=== PATIENT | female | born 1935 | race African-American/Black ===

== ENCOUNTER 2019-02-02 19:08 | Inpatient (IN) | payer MEDICARE, OTHER ==
[~2019-02-02] VITALS: Ht 157.5 cm; Wt 104.3 kg
[2019-02-02 23:30] VITALS: BP 127/68
--- NOTE | 2019-02-02 23:45 | NUR ---
NURSE NOTES: Received pt from [facility] via [facility] ambulance. Pt is being admitted for CHF. Pt is awake, AOx4. In no acute distress. VS stable. Placed pt on facility service associate showing SR. Oriented pt to room and unit. Bed in lowest position, call light within reach. Will contact MD for admission orders.
[2019-02-03] MEDS ORDERED: CARVEDILOL25 MG ORAL (00:06)
[2019-02-03] MEDS ORDERED: FUROSEMIDE20 M1 ORAL (00:06)
[2019-02-03] MEDS ORDERED: CHLORTHALIDONE25 MG ORAL (00:06)
[2019-02-03] MEDS ORDERED: LOSARTAN POTASS50 MG ORAL (00:06)
[2019-02-03] MEDS ORDERED: ASPIR 8181 MG ORAL (00:06)
[2019-02-03] MEDS ORDERED: CALCIUM 600 +1 EAC2 PO (00:06)
[2019-02-03] MEDS ORDERED: ADVIL200 M2 ORAL (00:06)
[2019-02-03 04:00] VITALS: BP 130/60
--- NOTE | 2019-02-03 07:21 | NUR ---
HAND-OFF: Report given to ISHAN Robins.
[2019-02-03 07:25] LABS: BASOPHILS % (AUTO) 0.4 % (0.0-2.0); EOSINOPHILS % (AUTO) 0.9 % (0.0-3.0); HEMATOCRIT 29.8 % (37.0-47.0); HEMOGLOBIN 10.2 G/DL (12.0-16.0); LYMPHOCYTES % (AUTO) 8.4 % (20.0-45.0); MEAN CORPUSCULAR VOLUME 85 FL (80-99); MONOCYTES % (AUTO) 9.2 % (1.0-10.0); NEUTROPHILS % (AUTO) 81.1 % (45.0-75.0); PLATELET COUNT 159 K/UL (150-450); RED BLOOD COUNT 3.53 M/UL (4.20-5.40); RED CELL DISTRIBUTION WIDTH 12.5 % (11.6-14.8); WHITE BLOOD COUNT 12.3 K/UL (4.8-10.8)
[2019-02-03 07:52] LABS: ALANINE AMINOTRANSFERASE 7 U/L (12-78); ALBUMIN 2.4 G/DL (3.4-5.0); ALBUMIN/GLOBULIN RATIO 0.6 (1.0-2.7); ALKALINE PHOSPHATASE 45 U/L (46-116); ANION GAP 14 mmol/L (5-15); ASPARTATE AMINO TRANSFERASE 15 U/L (15-37); BILIRUBIN,TOTAL 0.8 MG/DL (0.2-1.0); BLOOD UREA NITROGEN 40 mg/dL (7-18); CALCIUM 8.8 MG/DL (8.5-10.1); CARBON DIOXIDE 23 MMOL/L (21-32); CHLORIDE 107 MMOL/L (98-107); CREATININE 1.5 MG/DL (0.55-1.30); PHOSPHORUS 3.4 MG/DL (2.5-4.9); SODIUM 144 MMOL/L (136-145)
--- NOTE | 2019-02-03 07:52 | NUR ---
NURSE NOTES: Received patient from [facility]. Patient is awake and alert. denies pain or discomfort. O2 @ 2L/min via nasal cannula. Denies pain/Discomfort. safety precautions in place. side railsX2 up for safety. bed locked to lowest position. call arthur within patients reach. will follow.
[2019-02-03 08:00] VITALS: BP 133/65
--- NOTE | 2019-02-03 08:37 | NUR ---
RADIOLOGY DEPT., CHEST X-RAY DONE.-R. JW
[2019-02-03] MEDS: Carvedilol 12.5mg tab ORAL SCH ×2 (09:13→20:38)
[2019-02-03] MEDS: Aspirin EC 81mg tab ORAL SCH (09:13)
[2019-02-03] MEDS: Heparin 5000 units/ml inj SUBQ SCH ×2 (09:35→20:36)
[2019-02-03] MEDS: cefTRIAXone 1 GM in D5W 55 ML IVPB SCH (09:36)
--- NOTE | 2019-02-03 10:58 | Consultation ---
History of Present Illness General Date patient seen: Feb 03, 2019 Present Illness HPI 83 year old, poor historian, with hx of CHF ( pt is on Lasix and Lisinopril), HTN, morbid obesity, was taken by paramedics to [facility] b/o increasing shortness of breath. Her CXR at [place] only showed increased interstitial markings. The physician at [place] thought that she has acute renal insufficiency, lymphedema and cellulitis. She is transferred to [facility] for further evaluation. Allergies: Coded Allergies: No Known Allergies (Unverified , 02/03/19) Medication History Scheduled Aspirin* (Aspir 81*), 81 MG ORAL DAILY, (Reported) Calcium Carbonate/Vitamin D3 (Calcium 600 + Vit D 200 Tablet), 1 EACH PO BID, ( Reported) Carvedilol* (Carvedilol*), 25 MG ORAL BID, (Reported) Chlorthalidone* (Chlorthalidone*), 25 MG ORAL DAILY, (Reported) Furosemide* (Lasix*), 20 MG ORAL BID, (Reported) Losartan Potassium* (Losartan Potassium*), 50 MG ORAL DAILY, (Reported) Scheduled PRN Ibuprofen* (Advil*), 200 MG ORAL Q6H PRN for Pain Scale (6-10), (Reported) Patient History Healthcare decision maker Resuscitation status Full Code Advanced Directive on File Past Medical/Surgical History Past Medical/Surgical History: (1) Cellulitis (2) History of hypertension (3) Cardiomegaly (4) Peripheral edema Review of Systems Respiratory: Reports: shortness of breath Physical Exam General Appearance: WD/WN, morbidly obese Lines, tubes and drains: peripheral HEENT: normocephalic, atraumatic Neck: non-tender, normal alignment Respiratory/Chest: chest wall non-tender, lungs clear Breasts: no masses Cardiovascular/Chest: normal peripheral pulses Abdomen: normal bowel sounds, non tender Genitourinary/Rectal: normal genital exam Extremities: normal range of motion Skin Exam: other - hyperpigmentation in lower extremities Last 24 Hour Vital Signs Date Time Temp Pulse Resp B/P (MAP) Pulse Ox O2 Delivery O2 Flow Rate FiO2 02/03/19 10:08 98.1 02/03/19 09:13 82 133/65 02/03/19 08:00 80 02/03/19 08:00 98.1 82 23 133/65 (87) 96 02/03/19 04:00 98.5 79 18 130/60 (83) 96 02/03/19 04:00 79 02/03/19 00:00 Nasal Cannula 2.0 02/02/19 23:30 99.9 90 20 127/68 (87) 96 02/02/19 23:30 90 Laboratory Tests Test 02/03/19 07:18 White Blood Count 12.3 K/UL (4.8-10.8) H Red Blood Count 3.53 M/UL (4.20-5.40) L Hemoglobin 10.2 G/DL (12.0-16.0) L Hematocrit 29.8 % (37.0-47.0) L Mean Corpuscular Volume 85 FL (80-99) Mean Corpuscular Hemoglobin 28.9 PG (27.0-31.0) Mean Corpuscular Hemoglobin Concent 34.2 G/DL (32.0-36.0) Red Cell Distribution Width 12.5 % (11.6-14.8) Platelet Count 159 K/UL (150-450) Mean Platelet Volume 6.5 FL (6.5-10.1) Neutrophils (%) (Auto) 81.1 % (45.0-75.0) H Lymphocytes (%) (Auto) 8.4 % (20.0-45.0) L Monocytes (%) (Auto) 9.2 % (1.0-10.0) Eosinophils (%) (Auto) 0.9 % (0.0-3.0) Basophils (%) (Auto) 0.4 % (0.0-2.0) Sodium Level 144 MMOL/L (136-145) Potassium Level 3.0 MMOL/L (3.5-5.1) L Chloride Level 107 MMOL/L (98-107) Carbon Dioxide Level 23 MMOL/L (21-32) Anion Gap 14 mmol/L (5-15) Blood Urea Nitrogen 40 mg/dL (7-18) H Creatinine 1.5 MG/DL (0.55-1.30) H Estimat Glomerular Filtration Rate mL/min (>60) Glucose Level 90 MG/DL (74-106) Calcium Level 8.8 MG/DL (8.5-10.1) Phosphorus Level 3.4 MG/DL (2.5-4.9) Magnesium Level 1.9 MG/DL (1.8-2.4) Total Bilirubin 0.8 MG/DL (0.2-1.0) Aspartate Amino Transf (AST/SGOT) 15 U/L (15-37) Alanine Aminotransferase (ALT/SGPT) 7 U/L (12-78) L Alkaline Phosphatase 45 U/L (46-116) L Troponin I 0.000 ng/mL (0.000-0.056) Pro-B-Type Natriuretic Peptide 835 pg/mL (0-125) H Total Protein 6.3 G/DL (6.4-8.2) L Albumin 2.4 G/DL (3.4-5.0) L Globulin 3.9 g/dL Albumin/Globulin Ratio 0.6 (1.0-2.7) L Height (Feet): 5 Height (Inches): 2.00 Weight (Pounds): 220 Medications Current Medications Medications (Trade) Dose Ordered Sig/Christel Route PRN Reason Start Time Stop Time Status Last Admin Dose Admin Acetaminophen (Tylenol) 650 mg Q6H PRN ORAL Mild Pain/Temp > 100.5 02/03/19 06:45 03/05/19 06:44 Aspirin (Ecotrin) 81 mg DAILY ORAL 02/03/19 09:00 03/05/19 08:59 02/03/19 09:13 Carvedilol (Coreg) 12.5 mg EVERY 12 HOURS ORAL 02/03/19 09:00 03/05/19 08:59 02/03/19 09:13 Ceftriaxone Sodium 1 gm/ Dextrose 55 ml @ 110 mls/hr DAILY IVPB 02/03/19 09:00 02/10/19 08:59 02/03/19 09:36 Furosemide (Lasix) 40 mg EVERY 12 HOURS IV 02/03/19 09:00 03/05/19 08:59 02/03/19 09:13 Heparin Sodium (Porcine) (Heparin 5000 units/ml) 5,000 units EVERY 12 HOURS SUBQ 02/03/19 09:00 03/05/19 08:59 02/03/19 09:35 Ibuprofen (Advil) 400 mg Q8H PRN ORAL Moderate Pain (Pain Scale 4-6) 02/03/19 06:45 03/05/19 06:44 02/03/19 09:38 Ondansetron HCl (Zofran) 4 mg Q4H PRN IVP Nausea & Vomiting 02/03/19 06:45 03/05/19 06:44 Potassium Chloride (K-Dur) 40 meq Q8H ORAL 02/03/19 09:00 02/04/19 01:01 02/03/19 09:13 Vancomycin HCl (Vanco rx to dose) 1 ea DAILY PRN MISC Per rx protocol 02/03/19 06:45 03/05/19 06:44 Vancomycin HCl/ Dextrose 275 ml @ 137.5 mls/ hr ONCE IVPB 02/03/19 11:00 02/03/19 13:00 Assessment/Plan Problem List: (1) Acute bronchitis ICD Codes: J20.9 - Acute bronchitis, unspecified SNOMED: 97948415 (2) Cellulitis ICD Codes: L03.90 - Cellulitis, unspecified SNOMED: 040760602 (3) CHF (congestive heart failure) ICD Codes: I50.9 - Heart failure, unspecified SNOMED: 18260771 (4) Cardiomegaly ICD Codes: I51.7 - Cardiomegaly SNOMED: 4079289 (5) Peripheral edema ICD Codes: R60.9 - Edema, unspecified SNOMED: 629353789 (6) History of hypertension ICD Codes: Z86.79 - Personal history of other diseases of the circulatory system SNOMED: 668028024 (7) Morbid obesity ICD Codes: E66.01 - Morbid (severe) obesity due to excess calories SNOMED: 888243265 Assessment/Plan: check echo, doppler of legs diuretics IV monitor BP renal studies anemia w/u dvt prophylaxis respiratory treatment antitussives abx for bronchitis and cellulitis check ESR. Mone Newton MD Feb 03, 2019 10:58
[2019-02-03] MEDS ORDERED: Vancomycin 1.5gm Premix IVPB SCH (11:00)
[2019-02-03] MEDS ORDERED: Promethazine/Codeine 5ml UD ORAL PRN (11:00)
[2019-02-03 11:14] LABS: CREATINE KINASE 54 U/L (26-308)
[2019-02-03 12:00] VITALS: BP 131/63
[2019-02-03 12:26] LABS: APPEARANCE,URINE CLEAR; BILIRUBIN, URINE NEGATIVE (NEGATIVE); COLOR,URINE PALE YELLOW; GLUCOSE, URINE (UA) NEGATIVE (NEGATIVE); KETONES,URINE NEGATIVE (NEGATIVE); LEUKOCYTE ESTERASE ,URINE NEGATIVE (NEGATIVE); NITRITE,URINE NEGATIVE (NEGATIVE); PH,URINE 5 (4.5-8.0); PROTEIN,URINE NEGATIVE (NEGATIVE); UROBILINOGEN,URINE NORMAL MG/DL (0.0-1.0)
[2019-02-03 16:00] VITALS: BP 116/51
--- NOTE | 2019-02-03 16:16 | NUR ---
NURSE NOTES:WOUND CARE NOTES:Morbidly obese pt whom presented on admission with multiple pressure injuries to R and L buttocks. Ful Thickness pressure injury R buttocks with 100% slough at base of wound. Surrounding non-blanching erythema without induration.(L)1.5cm x (W)0.6cm. Full thickness pressure injury L buttocks with 100% slough at base of wound. Surrounding non-blanching erythema without induration.(L)1cm x (W)0.4cm. R lower ext edematous, erythematous with Hyperkeratosis and hardening. R leg is malodorous. Ulcerations noted to distal dorsal and lateral R tibia and dorsal R foot . Small amt of serous exudate noted from ulcers.Gentle scrubbing to remove loosened skin provided. R lower ext remains malodorous post scrubbing. Moisturizing lotion applied to RLE. Xeroform gauze placed over each wound and wrapped with kerlix pending further instructions from Surgeon. L lower ext less edematous in comparison to RLE . Hyperkeratosis with skin hardening noted .No erythema or ulcerations noted.Gentle scrubbing provided to remove loosened skin, then moisturized.Both lower ext elevated with pillows. Non-blanching erythema without fluctuance noted to both heels. Pt denied tenderness when each heel palpated. Recommendations: Wound Care orders as per . Elevate both lower ext with pillows. Reposition at least every 2hours or as tolerated. APM/LIZA Mattress overlay.
--- NOTE | 2019-02-03 16:24 | NUR ---
CASE MANAGEMENT:REVIEW DIRECT ADMIT FROM [facility] SI: CHF 99.9 90 20 127/68 96% ON 2L/NC WBC+12.3 H/H-10.2/29.8 K-3.0 BUN+40 CR+1.5 IS: IV VANCOMYCIN X1 IV ROCEPHIN Q24 HEPARIN SQ Q12 ASA PO QD IV LASIX Q12 COREG PO Q12 K-DUR PO Q8 : TELEMETRY STATUS INTERQUAL CRITERIA MET
--- NOTE | 2019-02-03 16:30 | History & Physical ---
History and Physical History & Physicial Dictated for Int Med-DR Jones no.[id number]. Tony Gaytan MD Feb 03, 2019 16:30
--- NOTE | 2019-02-03 18:00 | History and Physical Report ---
DATE OF ADMISSION: 02/02/2019 CHIEF COMPLAINT: The patient is an 83-year-old female, who presents with a chief complaint of shortness of breath. HISTORY OF PRESENT ILLNESS: Began on Wednesday, January 30, 2019. The patient began to experience shortness of breath. The patient was also wheezing. The patient also had edema of the left lower extremity. The patient states shortness of breath increased on February 02, 2019. The patient eventually called EMS. The patient was transported initially to [facility] emergency room. The patient was found to have elevated BNP. The patient is transferred to [facility] for insurance purposes. The patient presents with chief complaint of shortness of breath and congestive heart failure. REVIEW OF SYSTEMS: CONSTITUTIONAL: The patient denies weight loss or weight gain. The patient denies fevers or chills. HEENT: The patient denies ear or throat pain. The patient denies headache. CARDIOVASCULAR: The patient denies palpitations or chest pain. CHEST: The patient complains of shortness of breath and wheezing as above. The patient denies cough. ABDOMEN: The patient denies nausea, vomiting, diarrhea, or constipation. GENITOURINARY: The patient denies dysuria or increased frequency of urination. NEUROMUSCULAR: The patient denies seizures or generalized weakness. PAST MEDICAL HISTORY: Significant for hypertension. PAST SURGICAL HISTORY: Significant for appendectomy. CURRENT MEDICATIONS: 1. Aspirin 81 mg one tablet p.o. daily. 2. Calcium carbonate one tablet p.o. twice daily. 3. Carvedilol 25 mg p.o. twice daily. 4. Chlorthalidone 25 mg p.o. daily. 5. Lasix 20 mg p.o. twice daily. 6. Ibuprofen 200 mg p.o. q.6 hours p.r.n. 7. Losartan 50 mg p.o. daily. ALLERGIES: No known drug allergies. SOCIAL HISTORY: The patient is single and lives alone. The patient denies tobacco or alcohol use. PHYSICAL EXAMINATION: VITAL SIGNS: Blood pressure 141/67, pulse 95, respirations 29 to 34, and temperature 98.7 degrees Fahrenheit. GENERAL: The patient is a well-developed and well-nourished female, in no apparent distress. HEENT: Eyes, pupils are equal and responsive to light and accommodation. Extraocular movements are intact. NECK: Supple without lymphadenopathy. CHEST: Lungs are clear to auscultation bilaterally without wheezes or rales. CARDIOVASCULAR: Regular rhythm and rate. S1 and S2 are normal without murmurs, rubs, or gallops. ABDOMEN: Soft, nontender, and nondistended. Positive bowel sounds. No evidence of hepatosplenomegaly. Currently, no rebound or guarding noted. EXTREMITIES: Negative for clubbing, cyanosis, or edema. NEUROLOGICAL: Cranial nerves II through XII are grossly intact without focal deficits. Motor strength is 5/5 bilaterally. Deep tendon reflexes are 2+ plantar. IMAGING: A chest x-ray from [place] revealed cardiomegaly with increased interstitial lung markings consistent with congestive heart failure. LABORATORY STUDIES: WBC 15.7, hemoglobin 11.2, hematocrit 34.5, and platelets 201,000. Sodium 143, potassium 3.3, chloride 103, CO2 24, BUN 40, and creatinine 1.75. BNP elevated at 200. Troponin less than 0.02. ASSESSMENT: This is an 83-year-old female. 1. Shortness of breath. 2. Wheezing. 3. Edema of the bilateral lower extremities. 4. Congestive heart failure. 5. Hypertension. TREATMENT: 1. Shortness of breath/wheezing/congestive heart failure. Cardiology consultation has been obtained with Dr. Damian Houser. An echocardiogram is pending. We will follow recommendation of Cardiology. 2. Hypertension. Continue chlorthalidone, losartan, and carvedilol as above. Tony Gaytan M.D. DR: ADALBERTO JOB#: [id number] CC:
--- NOTE | 2019-02-03 18:30 | NUR ---
NURSE NOTES: Received a call from Dr. Hwang of [facility] regarding patients blood culture results 2 out of [address] Jones made aware new order received to consult ID Dr. Joel. Will follow.
--- NOTE | 2019-02-03 19:33 | NUR ---
HAND-OFF: Report given to Anuj/[facility] Patel plan of endorsed. .
--- NOTE | 2019-02-03 19:35 | NUR ---
NURSE NOTES: Received report from ISHAN Robins. Pt is awake and resting in bed. In no acute distress. IV line intact and patent. Pt on lunchroom monitor. Bed in lowest position, call light within reach. Will continue plan of care.
[2019-02-03 20:00] VITALS: BP 124/56
--- NOTE | 2019-02-03 21:13 | NUR ---
NURSE NOTES: Notified Dr. Jones that pt's K level was 3.0 today, per Dr. Jones okay to give Lasix 40 mg IVP dose.
[2019-02-04] VITALS: BP 118/51
[2019-02-04] MEDS: HYDROcodone/Acetamin 5/325 tab ORAL PRN ×4 (03:53→19:53)
[2019-02-04 04:00] VITALS: BP 117/75
[2019-02-04 07:04] LABS: HEMATOCRIT 33.8 % (37.0-47.0); MEAN CORPUSCULAR VOLUME 87 FL (80-99); PLATELET COUNT 186 K/UL (150-450); RED BLOOD COUNT 3.88 M/UL (4.20-5.40); RED CELL DISTRIBUTION WIDTH 12.6 % (11.6-14.8)
[2019-02-04 07:10] LABS: LACTATE DEHYDROGENASE 242 U/L (81-234); PHOSPHORUS 2.4 MG/DL (2.5-4.9)
[2019-02-04 07:17] LABS: % IRON SATURATION 11 % (15-50); IRON 17 ug/dL (50-175); TOTAL IRON BINDING CAPACITY 153 ug/dL (250-450)
--- NOTE | 2019-02-04 07:20 | NUR ---
HAND-OFF: Report given to ISHAN Mondragon.
--- NOTE | 2019-02-04 07:20 | NUR ---
NURSE NOTES: Received report from Anuj OLMSTEAD. Pt is awake and resting in bed. In no acute distress. IV line intact and patent. on 2LPm O2. On gambling monitor. Bed in lowest position, call light within reach. Will continue plan of care.
[2019-02-04 07:27] LABS: ANION GAP 10 mmol/L (5-15); BLOOD UREA NITROGEN 32 mg/dL (7-18); CALCIUM 8.7 MG/DL (8.5-10.1); CARBON DIOXIDE 27 MMOL/L (21-32); CHLORIDE 108 MMOL/L (98-107); CREATININE 1.3 MG/DL (0.55-1.30); POTASSIUM 4.2 MMOL/L (3.5-5.1); SODIUM 145 MMOL/L (136-145)
--- NOTE | 2019-02-04 07:33 | CDS Physician Query ---
Clarification is required for compliance, coding accuracy, and to reflect severity of illness for this patient Dear Mone Crawley MD Date: 02/04/2019 CDS: Aristides Adams According to the clinical indications above, please indicate below the condition Pt has: Cellulitis Labs: WBC: 12.3-->13 Vitals: HR: 90/min; Temp: 99.9 Tx: IV VANCOMYCIN, IV CEFTRIAXONE PHYSICIAN RESPONSE: x Sepsis SIRS SIRS with organ dysfunction Septic Shock Not applicable Other: Present on Admission: x Yes No Clinically Undetermined Physician signature Date Please also document in your Progress Notes and/or Discharge Summary and indicate if the condition was present on admission. MTDD
--- NOTE | 2019-02-04 07:36 | CDS Physician Query ---
Clarification is required for compliance, coding accuracy, and to reflect severity of illness for this patient Dear Mone Crawley MD Date: 02/04/2019 Survey And Mapping Technician/CDS Name: Aristides Adams "Heart Failure / CHF" documented in Progress notes, Pt has SOB Tx: IV FUROSEMIDE Please Clarify: Acuity [] Acute [x] Chronic [x] Acute on Chronic Type [] Systolic [x] Diastolic [] Systolic & Diastolic (Combined) [] Other: Present on Admission: [x] Yes [] No [] Clinically Undetermined Physician signature Date Please also document in your Progress Notes and/or Discharge Summary and indicate if the condition was present on admission. ZACHERYD
[2019-02-04 08:00] VITALS: BP 144/69
[2019-02-04] MEDS: Aspirin EC 81mg tab ORAL SCH (08:45)
[2019-02-04] MEDS: Carvedilol 12.5mg tab ORAL SCH ×2 (08:45→20:54)
[2019-02-04] MEDS: Heparin 5000 units/ml inj SUBQ SCH ×2 (08:46→20:54)
[2019-02-04] MEDS: cefTRIAXone 1 GM in D5W 55 ML IVPB SCH (08:47)
[2019-02-04] MEDS ORDERED: Vancomycin 1.5gm Premix IVPB ONE (09:00)
[2019-02-04] MEDS ORDERED: Albuterol/Ipratropium 3ml neb HHN PRN (11:15)
--- NOTE | 2019-02-04 11:19 | Pulmonology Progress Note ---
Assessment/Plan Problems: (1) Acute on chronic diastolic congestive heart failure (2) Acute bronchitis (3) Cellulitis (4) Cardiomegaly (5) Mild pulmonary hypertension (6) Peripheral edema (7) Morbid obesity (8) History of hypertension Assessment/Plan wbc still high dyspnea at times, add duoneb continue abx echo reviewed, EF of 55%, mild diastolic dysfunction with pulmonary hypertension decrease lasix. BNP noted dvt prophylaxis pt will need NH placement. Subjective ROS Limited/Unobtainable: No Constitutional: Reports: no symptoms HEENT: Repors: no symptoms Respiratory: Reports: no symptoms Allergies: Coded Allergies: No Known Allergies (Unverified , 02/03/19) Objective Last 24 Hour Vital Signs Date Time Temp Pulse Resp B/P (MAP) Pulse Ox O2 Delivery O2 Flow Rate FiO2 02/04/19 09:00 Nasal Cannula 2.0 02/04/19 08:45 73 144/69 02/04/19 08:00 97.7 73 18 144/69 (94) 96 02/04/19 04:00 69 02/04/19 04:00 97.7 69 19 117/75 (89) 99 02/04/19 00:00 97.0 68 20 118/51 (73) 96 02/03/19 21:00 Nasal Cannula 2.0 02/03/19 20:38 75 124/56 02/03/19 20:00 71 02/03/19 20:00 98.2 71 20 124/56 (78) 98 02/03/19 16:00 99.5 69 20 116/51 (72) 98 02/03/19 16:00 65 02/03/19 12:00 97.9 58 25 131/63 (85) 96 02/03/19 12:00 70 Intake and Output 02/03/19 02/04/19 18:59 06:59 Intake Total 120 ml 200 ml Output Total 800 ml 1500 ml Balance -680 ml -1300 ml Intake Oral 120 ml 200 ml Output Urine Total 800 ml 1500 ml # Bowel Movements 1 1 Objective General Appearance: WD/WN, morbidly obese Lines, tubes and drains: peripheral HEENT: normocephalic, atraumatic Neck: non-tender, normal alignment Respiratory/Chest: chest wall non-tender, lungs clear Breasts: no masses Cardiovascular/Chest: normal peripheral pulses Abdomen: normal bowel sounds, non tender Genitourinary/Rectal: normal genital exam Extremities: normal range of motion, severe edema Skin Exam: other - hyperpigmentation in lower extremities Microbiology Date/Time Source Procedure Growth Status 02/03/19 14:25 Stool Clostridium difficile Toxin Assay - Final Complete Laboratory Tests 02/03/19 11:43: Urine Color Pale yellow, Urine Appearance Clear, Urine pH 5, Urine Specific [place] 1.005, Urine Protein Negative, Urine Glucose (UA) Negative, Urine Ketones Negative, Urine Blood Negative, Urine Nitrite Negative, Urine Bilirubin Negative, Urine Urobilinogen Normal, Urine Leukocyte Esterase Negative, Urine RBC 0, Urine WBC 0, Urine Squamous Epithelial Cells Occasional, Urine Bacteria Occasional, Urine Eosinophils None seen, Urine Random Sodium 105, Urine Potassium Timed 10L 02/03/19 14:25: Stool Occult Blood Negative 02/04/19 05:19: White Blood Count 13.0H, Red Blood Count 3.88L, Hemoglobin 11.0L, Hematocrit 33.8L, Mean Corpuscular Volume 87, Mean Corpuscular Hemoglobin 28.4, Mean Corpuscular Hemoglobin Concent 32.7, Red Cell Distribution Width 12.6, Platelet Count 186, Mean Platelet Volume 6.8, Neutrophils (%) (Auto) , Lymphocytes (%) ( Auto) , Monocytes (%) (Auto) , Eosinophils (%) (Auto) , Basophils (%) (Auto) , Differential Total Cells Counted 100, Neutrophils % (Manual) 77H, Lymphocytes % (Manual) 12L, Monocytes % (Manual) 7, Eosinophils % (Manual) 4H, Basophils % ( Manual) 0, Band Neutrophils 0, Platelet Estimate Adequate, Platelet Morphology Normal, Red Blood Cell Morphology Normal, Erythrocyte Sedimentation Rate 74H, Reticulocyte Count 0.3L, Prothrombin Time 10.6, Prothromb Time International Ratio 1.0, Activated Partial Thromboplast Time 35H, Sodium Level 145, Potassium Level 4.2, Chloride Level 108H, Carbon Dioxide Level 27, Anion Gap 10, Blood Urea Nitrogen 32H, Creatinine 1.3, Estimat Glomerular Filtration Rate , Glucose Level 111H, Calcium Level 8.7, Phosphorus Level 2.4L, Magnesium Level 1.7L, Iron Level 17L, Total Iron Binding Capacity 153L, Percent Iron Saturation 11L, Unsaturated Iron Binding 136, Lactate Dehydrogenase 242H, Troponin I 0.000, C- Reactive Protein, Quantitative 35.4H, Pro-B-Type Natriuretic Peptide 2535H, Carcinoembryonic Antigen [Pending], Vitamin B12 Level 728, Folate 4.0L, Random Vancomycin Level 14.4 Current Medications Medications (Trade) Dose Ordered Sig/Christel Route PRN Reason Start Time Stop Time Status Last Admin Dose Admin Acetaminophen (Tylenol) 650 mg Q6H PRN ORAL Mild Pain/Temp > 100.5 02/03/19 06:45 03/05/19 06:44 02/04/19 03:01 Acetaminophen/ Hydrocodone Bitart ([place] 5/325) 1 tab EVERY 4 HOURS PRN ORAL Moderate Pain (Pain Scale 4-6) 02/04/19 11:15 02/11/19 03:29 UNV Albuterol/ Ipratropium (Albuterol/ Ipratropium) 3 ml Q4H PRN HHN Shortness of Breath 02/04/19 11:15 02/09/19 11:14 UNV Aspirin (Ecotrin) 81 mg DAILY ORAL 02/03/19 09:00 03/05/19 08:59 02/04/19 08:45 Carvedilol (Coreg) 12.5 mg EVERY 12 HOURS ORAL 02/03/19 09:00 03/05/19 08:59 02/04/19 08:45 Ceftriaxone Sodium 1 gm/ Dextrose 55 ml @ 110 mls/hr DAILY IVPB 02/03/19 09:00 02/10/19 08:59 02/04/19 08:47 Furosemide (Lasix) 40 mg EVERY 12 HOURS IV 02/03/19 09:00 03/05/19 08:59 02/04/19 08:46 Heparin Sodium (Porcine) (Heparin 5000 units/ml) 5,000 units EVERY 12 HOURS SUBQ 02/03/19 09:00 03/05/19 08:59 02/04/19 08:46 Ondansetron HCl (Zofran) 4 mg Q4H PRN IVP Nausea & Vomiting 02/03/19 06:45 03/05/19 06:44 Promethazine HCl/ Codeine (Phenergan with Codeine) 5 ml Q4H PRN ORAL For Cough 02/03/19 11:00 03/05/19 10:59 Vancomycin HCl (Vanco rx to dose) 1 ea DAILY PRN MISC Per rx protocol 02/03/19 06:45 03/05/19 06:44 Vancomycin HCl/ Dextrose 275 ml @ 137.5 mls/ hr Q24H IVPB 02/05/19 09:00 02/10/19 08:59 Mone Newton MD Feb 04, 2019 11:19
--- NOTE | 2019-02-04 11:36 | Consultation ---
History of Present Illness General Date patient seen: Feb 04, 2019 Present Illness HPI 83 y/o F with hx of CHF, HTN, s/p appendectomy, morbid obesity is transferred from [facility] to [place] on 02/03 for 3 days of increasing SOB and wheezing. CXR at [place] showed increased interstitial markings. Patient also had L LE edema Denied f/c, n/v/d, urinary symptoms. Allergies: Coded Allergies: No Known Allergies (Unverified , 02/03/19) Medication History Scheduled Aspirin* (Aspir 81*), 81 MG ORAL DAILY, (Reported) Calcium Carbonate/Vitamin D3 (Calcium 600 + Vit D 200 Tablet), 1 EACH PO BID, ( Reported) Carvedilol* (Carvedilol*), 25 MG ORAL BID, (Reported) Chlorthalidone* (Chlorthalidone*), 25 MG ORAL DAILY, (Reported) Furosemide* (Lasix*), 20 MG ORAL BID, (Reported) Losartan Potassium* (Losartan Potassium*), 50 MG ORAL DAILY, (Reported) Scheduled PRN Ibuprofen* (Advil*), 200 MG ORAL Q6H PRN for Pain Scale (6-10), (Reported) Patient History Healthcare decision maker Resuscitation status Full Code Advanced Directive on File Patient History Narrative Pmhx: as above Shx: The patient is single and lives alone. The patient denies tobacco or alcohol use. Fhx: non contributory Review of Systems All Other Systems: negative except mentioned in HPI Physical Exam Physical Exam Narrative General Appearance: WD/WN, morbidly obese Lines, tubes and drains: peripheral HEENT: normocephalic, atraumatic Neck: non-tender, normal alignment Respiratory/Chest: chest wall non-tender, lungs clear Cardiovascular/Chest: normal peripheral pulses Abdomen: normal bowel sounds, non tender Extremities: normal range of motion Skin Exam: other - hyperpigmentation in lower extremities Last 24 Hour Vital Signs Date Time Temp Pulse Resp B/P (MAP) Pulse Ox O2 Delivery O2 Flow Rate FiO2 02/04/19 09:00 Nasal Cannula 2.0 02/04/19 08:45 73 144/69 02/04/19 08:00 97.7 73 18 144/69 (94) 96 02/04/19 04:00 69 02/04/19 04:00 97.7 69 19 117/75 (89) 99 02/04/19 00:00 97.0 68 20 118/51 (73) 96 02/03/19 21:00 Nasal Cannula 2.0 02/03/19 20:38 75 124/56 02/03/19 20:00 71 02/03/19 20:00 98.2 71 20 124/56 (78) 98 02/03/19 16:00 99.5 69 20 116/51 (72) 98 02/03/19 16:00 65 02/03/19 12:00 97.9 58 25 131/63 (85) 96 02/03/19 12:00 70 Intake and Output 02/03/19 02/04/19 18:59 06:59 Intake Total 120 ml 200 ml Output Total 800 ml 1500 ml Balance -680 ml -1300 ml Intake Oral 120 ml 200 ml Output Urine Total 800 ml 1500 ml # Bowel Movements 1 1 Laboratory Tests Test 02/03/19 11:43 02/03/19 14:25 02/04/19 05:19 Urine Color Pale yellow Urine Appearance Clear Urine pH 5 (4.5-8.0) Urine Specific [place] 1.005 (1.005-1.035) Urine Protein Negative (NEGATIVE) Urine Glucose (UA) Negative (NEGATIVE) Urine Ketones Negative (NEGATIVE) Urine Blood Negative (NEGATIVE) Urine Nitrite Negative (NEGATIVE) Urine Bilirubin Negative (NEGATIVE) Urine Urobilinogen Normal MG/DL (0.0-1.0) Urine Leukocyte Esterase Negative (NEGATIVE) Urine RBC 0 /HPF (0 - 2) Urine WBC 0 /HPF (0 - 2) Urine Squamous Epithelial Cells Occasional /LPF Urine Bacteria Occasional /HPF (NONE) Urine Eosinophils None seen (NONE SEEN) Urine Random Sodium 105 mmol/L (20-110) Urine Potassium Timed 10 mmol/L (12-62) L Stool Occult Blood Negative (NEGATIVE) White Blood Count 13.0 K/UL (4.8-10.8) H Red Blood Count 3.88 M/UL (4.20-5.40) L Hemoglobin 11.0 G/DL (12.0-16.0) L Hematocrit 33.8 % (37.0-47.0) L Mean Corpuscular Volume 87 FL (80-99) Mean Corpuscular Hemoglobin 28.4 PG (27.0-31.0) Mean Corpuscular Hemoglobin Concent 32.7 G/DL (32.0-36.0) Red Cell Distribution Width 12.6 % (11.6-14.8) Platelet Count 186 K/UL (150-450) Mean Platelet Volume 6.8 FL (6.5-10.1) Neutrophils (%) (Auto) % (45.0-75.0) Lymphocytes (%) (Auto) % (20.0-45.0) Monocytes (%) (Auto) % (1.0-10.0) Eosinophils (%) (Auto) % (0.0-3.0) Basophils (%) (Auto) % (0.0-2.0) Differential Total Cells Counted 100 Neutrophils % (Manual) 77 % (45-75) H Lymphocytes % (Manual) 12 % (20-45) L Monocytes % (Manual) 7 % (1-10) Eosinophils % (Manual) 4 % (0-3) H Basophils % (Manual) 0 % (0-2) Band Neutrophils 0 % (0-8) Platelet Estimate Adequate Platelet Morphology Normal Red Blood Cell Morphology Normal Erythrocyte Sedimentation Rate 74 MM/HR (0-30) H Reticulocyte Count 0.3 % (0.5-2.0) L Prothrombin Time 10.6 SEC (9.30-11.50) Prothromb Time International Ratio 1.0 (0.9-1.1) Activated Partial Thromboplast Time 35 SEC (23-33) H Sodium Level 145 MMOL/L (136-145) Potassium Level 4.2 MMOL/L (3.5-5.1) Chloride Level 108 MMOL/L (98-107) H Carbon Dioxide Level 27 MMOL/L (21-32) Anion Gap 10 mmol/L (5-15) Blood Urea Nitrogen 32 mg/dL (7-18) H Creatinine 1.3 MG/DL (0.55-1.30) Estimat Glomerular Filtration Rate mL/min (>60) Glucose Level 111 MG/DL (74-106) H Calcium Level 8.7 MG/DL (8.5-10.1) Phosphorus Level 2.4 MG/DL (2.5-4.9) L Magnesium Level 1.7 MG/DL (1.8-2.4) L Iron Level 17 ug/dL (50-175) L Total Iron Binding Capacity 153 ug/dL (250-450) L Percent Iron Saturation 11 % (15-50) L Unsaturated Iron Binding 136 ug/dL (112-346) Lactate Dehydrogenase 242 U/L (81-234) H Troponin I 0.000 ng/mL (0.000-0.056) C-Reactive Protein, Quantitative 35.4 mg/dL (0.00-0.90) H Pro-B-Type Natriuretic Peptide 2535 pg/mL (0-125) H Carcinoembryonic Antigen Pending Vitamin B12 Level 728 PG/ML (193-986) Folate 4.0 NG/ML (8.6-58.9) L Random Vancomycin Level 14.4 ug/mL Microbiology Date/Time Source Procedure Growth Status 02/03/19 14:25 Stool Clostridium difficile Toxin Assay - Final Complete Height (Feet): 5 Height (Inches): 2.00 Weight (Pounds): 210 Medications Current Medications Medications (Trade) Dose Ordered Sig/Christel Route PRN Reason Start Time Stop Time Status Last Admin Dose Admin Acetaminophen (Tylenol) 650 mg Q6H PRN ORAL Mild Pain/Temp > 100.5 02/03/19 06:45 03/05/19 06:44 02/04/19 03:01 Acetaminophen/ Hydrocodone Bitart ([place] 5/325) 1 tab Q4H PRN ORAL Moderate Pain (Pain Scale 4-6) 02/04/19 11:15 02/11/19 11:14 Albuterol/ Ipratropium (Albuterol/ Ipratropium) 3 ml Q4H PRN HHN Shortness of Breath 02/04/19 11:15 02/09/19 11:14 Aspirin (Ecotrin) 81 mg DAILY ORAL 02/03/19 09:00 03/05/19 08:59 02/04/19 08:45 Carvedilol (Coreg) 12.5 mg EVERY 12 HOURS ORAL 02/03/19 09:00 03/05/19 08:59 02/04/19 08:45 Ceftriaxone Sodium 1 gm/ Dextrose 55 ml @ 110 mls/hr DAILY IVPB 02/03/19 09:00 02/10/19 08:59 02/04/19 08:47 Furosemide (Lasix) 20 mg EVERY 12 HOURS IV 02/04/19 21:00 03/05/19 08:59 Heparin Sodium (Porcine) (Heparin 5000 units/ml) 5,000 units EVERY 12 HOURS SUBQ 02/03/19 09:00 03/05/19 08:59 02/04/19 08:46 Ondansetron HCl (Zofran) 4 mg Q4H PRN IVP Nausea & Vomiting 02/03/19 06:45 03/05/19 06:44 Promethazine HCl/ Codeine (Phenergan with Codeine) 5 ml Q4H PRN ORAL For Cough 02/03/19 11:00 03/05/19 10:59 Vancomycin HCl (Vanco rx to dose) 1 ea DAILY PRN MISC Per rx protocol 02/03/19 06:45 03/05/19 06:44 Vancomycin HCl/ Dextrose 275 ml @ 137.5 mls/ hr Q24H IVPB 02/05/19 09:00 02/10/19 08:59 Assessment/Plan Assessment/Plan: Abx: IV Vancomycin 02/03- Ceftriaxone 02/03- Assessment: SOB/wheezing- likely CHF exacerbation- r/o PNA -CXR: p -CXR (at [place]): increased interstitial markings L LE edema- 2ry to Cellulitis -V. duplex no DVT GBS bacteremia (at [place])- suspect from cellulitis -02/02 Bcx 07/05 GBS Afebrile Leukocytosis ALEXANDRA, improving CHF HTN s/p appendectomy morbid obesity Plan: -Continue empiric IV Vancomycin and Ceftriaxone #2 -f/u cx -Monitor CBC/CMP, temperatures -f/u CXR -Bcx x2, sp cx -wound care per hospital protocol Thank you for this consultation. Will continue to follow along with you. Discussed with Izabella Whalen M.D. Feb 04, 2019 11:36
[2019-02-04 11:45] VITALS: BP 111/58
--- NOTE | 2019-02-04 13:16 | Cardiology Report ---
APPROVED REPORT EXAM: Two-dimensional and M-mode echocardiogram with Doppler and color Doppler. INDICATION Congestive Heart Failure M-Mode DIMENSIONS IVSd0.8 (0.7-1.1cm)Left Atrium (MM)3.9 (1.6-4.0cm) LVDd5.2 (3.5-5.6cm)Aortic Root2.6 (2.0-3.7cm) PWd0.9 (0.7-1.1cm)Aortic Cusp Exc.1.6 (1.5-2.0cm) IVSs1.5 cm LVDs3.3 (2.5-4.0cm) PWs1.7 cm Normal left ventricular chamber size, systolic function and wall motion . Left ventricular ejection fraction estimated to be 55 %. No left ventricular hypertrophy. Anterior Echo-free space, may be due to pericardial fat or effusion. All other cardiac chamber sizes are within normal limits. Thickened mitral valve leaflets with normal excursion. Focal aortic valve sclerosis with adequate cusp excursion. Mitral annulus and aortic root calcification. Normal pulmonic valve structure. Normal tricuspid valve structure. IVC at normal size with physiologic collapse. A color flow and spectral Doppler study was performed and revealed: Trace aortic insufficiency. Trace mitral regurgitation. Mitral diastolic velocities suggest reduced left ventricular relaxation c/w mild LV diastolic dysfunction (Grade I ) Mild tricuspid regurgitation. Tricuspid systolic velocities suggests peak right ventricular systolic pressure of 38 mmHg,consistent with mild pulmonary hypertension.
--- NOTE | 2019-02-04 13:40 | NUR ---
PT EVALUATION NOTE Patient seen for initial evaluation, see complete evaluation for details. Patient presents with generalized weakness and pain which affects patient's ability to perform mobility tasks. Patient requires max assist for rolling; declined sitting at EOB and OOB activities due to low back pain. Patient will benefit from skilled inpatient PT intervention to address strength, balance, safety and functional mobility. Recommend discharge to SNF for short term rehab once medically cleared by MD as patient lives alone. Patient has 4 wheeled walker at home. Addendum: 02/04/19 at 1429 by MACARENA ESPAÑA PT Amended: Links added.
--- NOTE | 2019-02-04 14:38 | Cardiac Electrophysiology PN ---
Subjective Subjective [id number] Objective Last 24 Hour Vital Signs Date Time Temp Pulse Resp B/P (MAP) Pulse Ox O2 Delivery O2 Flow Rate FiO2 02/04/19 12:20 72 02/04/19 11:45 98.4 74 18 111/58 (75) 96 02/04/19 09:00 Nasal Cannula 2.0 02/04/19 08:45 73 144/69 02/04/19 08:00 97.7 73 18 144/69 (94) 96 02/04/19 04:00 69 02/04/19 04:00 97.7 69 19 117/75 (89) 99 02/04/19 00:00 97.0 68 20 118/51 (73) 96 02/03/19 21:00 Nasal Cannula 2.0 02/03/19 20:38 75 124/56 02/03/19 20:00 71 02/03/19 20:00 98.2 71 20 124/56 (78) 98 02/03/19 16:00 99.5 69 20 116/51 (72) 98 02/03/19 16:00 65 Intake and Output 02/03/19 02/04/19 18:59 06:59 Intake Total 120 ml 200 ml Output Total 800 ml 1500 ml Balance -680 ml -1300 ml Intake Oral 120 ml 200 ml Output Urine Total 800 ml 1500 ml # Bowel Movements 1 1 Laboratory Tests Test 02/04/19 05:19 White Blood Count 13.0 K/UL (4.8-10.8) H Red Blood Count 3.88 M/UL (4.20-5.40) L Hemoglobin 11.0 G/DL (12.0-16.0) L Hematocrit 33.8 % (37.0-47.0) L Mean Corpuscular Volume 87 FL (80-99) Mean Corpuscular Hemoglobin 28.4 PG (27.0-31.0) Mean Corpuscular Hemoglobin Concent 32.7 G/DL (32.0-36.0) Red Cell Distribution Width 12.6 % (11.6-14.8) Platelet Count 186 K/UL (150-450) Mean Platelet Volume 6.8 FL (6.5-10.1) Neutrophils (%) (Auto) % (45.0-75.0) Lymphocytes (%) (Auto) % (20.0-45.0) Monocytes (%) (Auto) % (1.0-10.0) Eosinophils (%) (Auto) % (0.0-3.0) Basophils (%) (Auto) % (0.0-2.0) Differential Total Cells Counted 100 Neutrophils % (Manual) 77 % (45-75) H Lymphocytes % (Manual) 12 % (20-45) L Monocytes % (Manual) 7 % (1-10) Eosinophils % (Manual) 4 % (0-3) H Basophils % (Manual) 0 % (0-2) Band Neutrophils 0 % (0-8) Other Cell Type Pathologist review Platelet Estimate Adequate Platelet Morphology Normal Red Blood Cell Morphology Normal Erythrocyte Sedimentation Rate 74 MM/HR (0-30) H Reticulocyte Count 0.3 % (0.5-2.0) L Prothrombin Time 10.6 SEC (9.30-11.50) Prothromb Time International Ratio 1.0 (0.9-1.1) Activated Partial Thromboplast Time 35 SEC (23-33) H Sodium Level 145 MMOL/L (136-145) Potassium Level 4.2 MMOL/L (3.5-5.1) Chloride Level 108 MMOL/L (98-107) H Carbon Dioxide Level 27 MMOL/L (21-32) Anion Gap 10 mmol/L (5-15) Blood Urea Nitrogen 32 mg/dL (7-18) H Creatinine 1.3 MG/DL (0.55-1.30) Estimat Glomerular Filtration Rate mL/min (>60) Glucose Level 111 MG/DL (74-106) H Calcium Level 8.7 MG/DL (8.5-10.1) Phosphorus Level 2.4 MG/DL (2.5-4.9) L Magnesium Level 1.7 MG/DL (1.8-2.4) L Iron Level 17 ug/dL (50-175) L Total Iron Binding Capacity 153 ug/dL (250-450) L Percent Iron Saturation 11 % (15-50) L Unsaturated Iron Binding 136 ug/dL (112-346) Lactate Dehydrogenase 242 U/L (81-234) H Troponin I 0.000 ng/mL (0.000-0.056) C-Reactive Protein, Quantitative 35.4 mg/dL (0.00-0.90) H Pro-B-Type Natriuretic Peptide 2535 pg/mL (0-125) H Carcinoembryonic Antigen Pending Vitamin B12 Level 728 PG/ML (193-986) Folate 4.0 NG/ML (8.6-58.9) L Random Vancomycin Level 14.4 ug/mL Microbiology Date/Time Source Procedure Growth Status 02/03/19 14:25 Stool Clostridium difficile Toxin Assay - Final Complete Bob Lowry MD Feb 04, 2019 14:38
--- NOTE | 2019-02-04 15:19 | Internal Med Progress Note ---
Subjective Physician Name Mark Jones Attending Physician Mark Jones MD Current Medications Medications (Trade) Dose Ordered Sig/Christel Route PRN Reason Start Time Stop Time Status Last Admin Dose Admin Acetaminophen (Tylenol) 650 mg Q6H PRN ORAL Mild Pain/Temp > 100.5 02/03/19 06:45 03/05/19 06:44 02/04/19 03:01 Acetaminophen/ Hydrocodone Bitart ([place] 5/325) 1 tab Q4H PRN ORAL Moderate Pain (Pain Scale 4-6) 02/04/19 11:15 02/11/19 11:14 Albuterol/ Ipratropium (Albuterol/ Ipratropium) 3 ml Q4H PRN HHN Shortness of Breath 02/04/19 11:15 02/09/19 11:14 Aspirin (Ecotrin) 81 mg DAILY ORAL 02/03/19 09:00 03/05/19 08:59 02/04/19 08:45 Carvedilol (Coreg) 12.5 mg EVERY 12 HOURS ORAL 02/03/19 09:00 03/05/19 08:59 02/04/19 08:45 Ceftriaxone Sodium 1 gm/ Dextrose 55 ml @ 110 mls/hr DAILY IVPB 02/03/19 09:00 02/10/19 08:59 02/04/19 08:47 Furosemide (Lasix) 40 mg EVERY 12 HOURS IV 02/04/19 21:00 03/05/19 08:59 Heparin Sodium (Porcine) (Heparin 5000 units/ml) 5,000 units EVERY 12 HOURS SUBQ 02/03/19 09:00 03/05/19 08:59 02/04/19 08:46 Ondansetron HCl (Zofran) 4 mg Q4H PRN IVP Nausea & Vomiting 02/03/19 06:45 03/05/19 06:44 Promethazine HCl/ Codeine (Phenergan with Codeine) 5 ml Q4H PRN ORAL For Cough 02/03/19 11:00 03/05/19 10:59 Vancomycin HCl (Vanco rx to dose) 1 ea DAILY PRN MISC Per rx protocol 02/03/19 06:45 03/05/19 06:44 Vancomycin HCl/ Dextrose 275 ml @ 137.5 mls/ hr Q24H IVPB 02/05/19 09:00 02/10/19 08:59 Allergies: Coded Allergies: No Known Allergies (Unverified , 02/03/19) Subjective awake, alert, responsive, NAD, No CP or SOB. Objective Last Vital Signs Date Time Temp Pulse Resp B/P (MAP) Pulse Ox O2 Delivery O2 Flow Rate FiO2 02/04/19 12:20 72 02/04/19 11:45 98.4 18 111/58 (75) 96 02/04/19 09:00 Nasal Cannula 2.0 Laboratory Tests Test 02/04/19 05:19 White Blood Count 13.0 K/UL (4.8-10.8) H Red Blood Count 3.88 M/UL (4.20-5.40) L Hemoglobin 11.0 G/DL (12.0-16.0) L Hematocrit 33.8 % (37.0-47.0) L Mean Corpuscular Volume 87 FL (80-99) Mean Corpuscular Hemoglobin 28.4 PG (27.0-31.0) Mean Corpuscular Hemoglobin Concent 32.7 G/DL (32.0-36.0) Red Cell Distribution Width 12.6 % (11.6-14.8) Platelet Count 186 K/UL (150-450) Mean Platelet Volume 6.8 FL (6.5-10.1) Neutrophils (%) (Auto) % (45.0-75.0) Lymphocytes (%) (Auto) % (20.0-45.0) Monocytes (%) (Auto) % (1.0-10.0) Eosinophils (%) (Auto) % (0.0-3.0) Basophils (%) (Auto) % (0.0-2.0) Differential Total Cells Counted 100 Neutrophils % (Manual) 77 % (45-75) H Lymphocytes % (Manual) 12 % (20-45) L Monocytes % (Manual) 7 % (1-10) Eosinophils % (Manual) 4 % (0-3) H Basophils % (Manual) 0 % (0-2) Band Neutrophils 0 % (0-8) Other Cell Type Pathologist review Platelet Estimate Adequate Platelet Morphology Normal Red Blood Cell Morphology Normal Erythrocyte Sedimentation Rate 74 MM/HR (0-30) H Reticulocyte Count 0.3 % (0.5-2.0) L Prothrombin Time 10.6 SEC (9.30-11.50) Prothromb Time International Ratio 1.0 (0.9-1.1) Activated Partial Thromboplast Time 35 SEC (23-33) H Sodium Level 145 MMOL/L (136-145) Potassium Level 4.2 MMOL/L (3.5-5.1) Chloride Level 108 MMOL/L (98-107) H Carbon Dioxide Level 27 MMOL/L (21-32) Anion Gap 10 mmol/L (5-15) Blood Urea Nitrogen 32 mg/dL (7-18) H Creatinine 1.3 MG/DL (0.55-1.30) Estimat Glomerular Filtration Rate mL/min (>60) Glucose Level 111 MG/DL (74-106) H Calcium Level 8.7 MG/DL (8.5-10.1) Phosphorus Level 2.4 MG/DL (2.5-4.9) L Magnesium Level 1.7 MG/DL (1.8-2.4) L Iron Level 17 ug/dL (50-175) L Total Iron Binding Capacity 153 ug/dL (250-450) L Percent Iron Saturation 11 % (15-50) L Unsaturated Iron Binding 136 ug/dL (112-346) Lactate Dehydrogenase 242 U/L (81-234) H Troponin I 0.000 ng/mL (0.000-0.056) C-Reactive Protein, Quantitative 35.4 mg/dL (0.00-0.90) H Pro-B-Type Natriuretic Peptide 2535 pg/mL (0-125) H Carcinoembryonic Antigen Pending Vitamin B12 Level 728 PG/ML (193-986) Folate 4.0 NG/ML (8.6-58.9) L Random Vancomycin Level 14.4 ug/mL Microbiology Date/Time Source Procedure Growth Status 02/03/19 14:25 Stool Clostridium difficile Toxin Assay - Final Complete Intake and Output 02/03/19 02/04/19 18:59 06:59 Intake Total 120 ml 200 ml Output Total 800 ml 1500 ml Balance -680 ml -1300 ml Intake Oral 120 ml 200 ml Output Urine Total 800 ml 1500 ml # Bowel Movements 1 1 Objective General: No acute distress, awake and alert HEENT: NCAT, sclera anicteric, PERRL, EOMI. Neck: Supple, no significant jugular venous distention, Lungs: Fair inspiratory effort, decrease air at bases, no Wheeze or Rales. Heart: Regular rate and rhythm, normal S1/S2, no murmur. Abdomen: soft, nontender, nondistended. Normoactive bowel sounds, morbid obesity. / Rectal: Refused and deferred. Extremities: No Cyanosis , clubbing, Bilateral LE's edema resolved. Left Leg dressing. Neuro: A&O x 3, Able to move all extremities Skin: warm, no rash. Psych: Normal mood and affect Assessment/Plan Assessment/Plan (1) Acute on chronic diastolic congestive heart failure (2) Acute bronchitis (3) Cellulitis (4) Cardiomegaly (5) Mild pulmonary hypertension (6) Peripheral edema (7) Morbid obesity (8) History of hypertension Plan: Monitor cultures and labs Abx: Vanco IV, Rocephin IV Discuss about Dc planning, SNF placement PT Mobility Full code Heparin SQ Mark Jones MD Feb 04, 2019 15:19
[2019-02-04 16:00] VITALS: BP 109/70
--- NOTE | 2019-02-04 17:45 | Consultation ---
History of Present Illness General Date patient seen: Feb 03, 2019 Time patient seen: 12:00 Referring physician: Aman Reason for Consultation: Buttock ulcer Present Illness HPI Asked to evaluate this patient for right medial buttock ulcer. She was admitted to [facility] for SOB and was found to have this ulcer on admission. She lives at home and per history is ambulatory. She has a h/o chronic venous insufficiency and LLE ulcers that has been managed by her oil operator in the past. She is apparently not aware of having a buttock ulcer. Allergies: Coded Allergies: No Known Allergies (Unverified , 02/03/19) Medication History Scheduled Aspirin* (Aspir 81*), 81 MG ORAL DAILY, (Reported) Calcium Carbonate/Vitamin D3 (Calcium 600 + Vit D 200 Tablet), 1 EACH PO BID, ( Reported) Carvedilol* (Carvedilol*), 25 MG ORAL BID, (Reported) Chlorthalidone* (Chlorthalidone*), 25 MG ORAL DAILY, (Reported) Furosemide* (Lasix*), 20 MG ORAL BID, (Reported) Losartan Potassium* (Losartan Potassium*), 50 MG ORAL DAILY, (Reported) Scheduled PRN Ibuprofen* (Advil*), 200 MG ORAL Q6H PRN for Pain Scale (6-10), (Reported) Patient History History Provided By: Patient, Medical Record Healthcare decision maker Resuscitation status Full Code Advanced Directive on File Past Medical/Surgical History Past Medical/Surgical History: (1) Morbid obesity (2) History of hypertension (3) Acute on chronic diastolic congestive heart failure (4) Mild pulmonary hypertension Review of Systems Respiratory: Reports: see HPI Musculoskeletal: Reports: back pain Skin: Reports: see HPI Physical Exam General Appearance: WD/WN, no apparent distress, alert, morbidly obese Lines, tubes and drains: peripheral Extremities: moderate edema Skin Exam: other - Ulcer of right medial buttock is unstageable. Skin around sacral area is stage 1. No erythema or warmth. No fluctuance. Last 24 Hour Vital Signs Date Time Temp Pulse Resp B/P (MAP) Pulse Ox O2 Delivery O2 Flow Rate FiO2 02/04/19 16:00 79 02/04/19 16:00 97.9 85 20 109/70 (83) 94 02/04/19 12:20 72 02/04/19 11:45 98.4 74 18 111/58 (75) 96 02/04/19 09:00 Nasal Cannula 2.0 02/04/19 08:45 73 144/69 02/04/19 08:00 97.7 73 18 144/69 (94) 96 02/04/19 04:00 69 02/04/19 04:00 97.7 69 19 117/75 (89) 99 02/04/19 00:00 97.0 68 20 118/51 (73) 96 02/03/19 21:00 Nasal Cannula 2.0 02/03/19 20:38 75 124/56 02/03/19 20:00 71 02/03/19 20:00 98.2 71 20 124/56 (78) 98 Intake and Output 02/03/19 02/04/19 19:00 07:00 Intake Total 120 ml 200 ml Output Total 800 ml 1500 ml Balance -680 ml -1300 ml Intake Oral 120 ml 200 ml Output Urine Total 800 ml 1500 ml # Bowel Movements 1 1 Laboratory Tests Test 02/04/19 05:19 White Blood Count 13.0 K/UL (4.8-10.8) H Red Blood Count 3.88 M/UL (4.20-5.40) L Hemoglobin 11.0 G/DL (12.0-16.0) L Hematocrit 33.8 % (37.0-47.0) L Mean Corpuscular Volume 87 FL (80-99) Mean Corpuscular Hemoglobin 28.4 PG (27.0-31.0) Mean Corpuscular Hemoglobin Concent 32.7 G/DL (32.0-36.0) Red Cell Distribution Width 12.6 % (11.6-14.8) Platelet Count 186 K/UL (150-450) Mean Platelet Volume 6.8 FL (6.5-10.1) Neutrophils (%) (Auto) % (45.0-75.0) Lymphocytes (%) (Auto) % (20.0-45.0) Monocytes (%) (Auto) % (1.0-10.0) Eosinophils (%) (Auto) % (0.0-3.0) Basophils (%) (Auto) % (0.0-2.0) Differential Total Cells Counted 100 Neutrophils % (Manual) 77 % (45-75) H Lymphocytes % (Manual) 12 % (20-45) L Monocytes % (Manual) 7 % (1-10) Eosinophils % (Manual) 4 % (0-3) H Basophils % (Manual) 0 % (0-2) Band Neutrophils 0 % (0-8) Other Cell Type Pathologist review Platelet Estimate Adequate Platelet Morphology Normal Red Blood Cell Morphology Normal Erythrocyte Sedimentation Rate 74 MM/HR (0-30) H Reticulocyte Count 0.3 % (0.5-2.0) L Prothrombin Time 10.6 SEC (9.30-11.50) Prothromb Time International Ratio 1.0 (0.9-1.1) Activated Partial Thromboplast Time 35 SEC (23-33) H Sodium Level 145 MMOL/L (136-145) Potassium Level 4.2 MMOL/L (3.5-5.1) Chloride Level 108 MMOL/L (98-107) H Carbon Dioxide Level 27 MMOL/L (21-32) Anion Gap 10 mmol/L (5-15) Blood Urea Nitrogen 32 mg/dL (7-18) H Creatinine 1.3 MG/DL (0.55-1.30) Estimat Glomerular Filtration Rate mL/min (>60) Glucose Level 111 MG/DL (74-106) H Calcium Level 8.7 MG/DL (8.5-10.1) Phosphorus Level 2.4 MG/DL (2.5-4.9) L Magnesium Level 1.7 MG/DL (1.8-2.4) L Iron Level 17 ug/dL (50-175) L Total Iron Binding Capacity 153 ug/dL (250-450) L Percent Iron Saturation 11 % (15-50) L Unsaturated Iron Binding 136 ug/dL (112-346) Lactate Dehydrogenase 242 U/L (81-234) H Troponin I 0.000 ng/mL (0.000-0.056) C-Reactive Protein, Quantitative 35.4 mg/dL (0.00-0.90) H Pro-B-Type Natriuretic Peptide 2535 pg/mL (0-125) H Carcinoembryonic Antigen Pending Vitamin B12 Level 728 PG/ML (193-986) Folate 4.0 NG/ML (8.6-58.9) L Random Vancomycin Level 14.4 ug/mL Height (Feet): 5 Height (Inches): 2.00 Weight (Pounds): 210 Medications Current Medications Medications (Trade) Dose Ordered Sig/Christel Route PRN Reason Start Time Stop Time Status Last Admin Dose Admin Acetaminophen (Tylenol) 650 mg Q6H PRN ORAL Mild Pain/Temp > 100.5 02/03/19 06:45 03/05/19 06:44 02/04/19 03:01 Acetaminophen/ Hydrocodone Bitart ([place] 5/325) 1 tab Q4H PRN ORAL Moderate Pain (Pain Scale 4-6) 02/04/19 11:15 02/11/19 11:14 02/04/19 15:38 Albuterol/ Ipratropium (Albuterol/ Ipratropium) 3 ml Q4H PRN HHN Shortness of Breath 02/04/19 11:15 02/09/19 11:14 Aspirin (Ecotrin) 81 mg DAILY ORAL 02/03/19 09:00 03/05/19 08:59 02/04/19 08:45 Carvedilol (Coreg) 12.5 mg EVERY 12 HOURS ORAL 02/03/19 09:00 03/05/19 08:59 02/04/19 08:45 Ceftriaxone Sodium 1 gm/ Dextrose 55 ml @ 110 mls/hr DAILY IVPB 02/03/19 09:00 02/10/19 08:59 02/04/19 08:47 Furosemide (Lasix) 40 mg EVERY 12 HOURS IV 02/04/19 21:00 03/05/19 08:59 Heparin Sodium (Porcine) (Heparin 5000 units/ml) 5,000 units EVERY 12 HOURS SUBQ 02/03/19 09:00 03/05/19 08:59 02/04/19 08:46 Ondansetron HCl (Zofran) 4 mg Q4H PRN IVP Nausea & Vomiting 02/03/19 06:45 03/05/19 06:44 Promethazine HCl/ Codeine (Phenergan with Codeine) 5 ml Q4H PRN ORAL For Cough 02/03/19 11:00 03/05/19 10:59 Vancomycin HCl (Vanco rx to dose) 1 ea DAILY PRN MISC Per rx protocol 02/03/19 06:45 03/05/19 06:44 Vancomycin HCl/ Dextrose 275 ml @ 137.5 mls/ hr Q24H IVPB 02/05/19 09:00 02/10/19 08:59 Assessment/Plan Status: stable Assessment/Plan: Patient with unstageable ulcer of the right medial buttock. Recommend medihoney to the area to loosen the slough and determine more accurate staging. Need to keep moisture under control and offload every 2 hours. No need for surgical intervention at this time. Thank you. Jean Dove MD Feb 04, 2019 17:45
--- NOTE | 2019-02-04 18:47 | NUR ---
NURSE NOTES: Left a message to Dr. Dove for wound tx orders for LLE cellulitis PVD open wound
--- NOTE | 2019-02-04 19:15 | NUR ---
NURSE NOTES: Received report from Min RN, pt. in bed awake, family at bedside, pt. is A/o x's4- able to make needs known, no signs or symptoms of acute cardiac or respiratory distress noted, bed in lowest position and call light within easy reach, bed alarm on, side rails up x's3 and safety brakes engaged, pt. appears to be sating well on 2L NC at 97%- no distress noted, Donahue intact and draining to gravity, RFA 22G IV intact and patent. safety measures continued. will continue with plan of care.
--- NOTE | 2019-02-04 19:40 | NUR ---
HAND-OFF: Report given to Horace OLMSTEAD. Pt remains stable.
[2019-02-04 20:00] VITALS: BP 129/71
--- NOTE | 2019-02-04 22:00 | NUR ---
NURSE NOTES: Received pt and report from ISHAN Izaguirre. Observed pt resting in bed with both eyes closed; arousable to voice. Pt is A/O x4. monitoring specialist is in placed, IV site intact, asymptomatic, and patent. Bed is in the lowest position and locked. Call light within each. No signs/symptoms of acute distress noted at this time. Will continue plan of care.
--- NOTE | 2019-02-04 22:12 | NUR ---
HAND-OFF: Report given to Bryanna RN, pt. remains stable and no signs of distress noted.
[2019-02-05] VITALS: BP 131/63
--- NOTE | 2019-02-05 02:00 | Consultation ---
DATE OF CONSULTATION: 02/04/2019 CARDIOLOGY CONSULTATION CONSULTING PHYSICIAN: Bob Lowry M.D. REFERRING PHYSICIAN: Mark Jones M.D. REASON FOR CONSULTATION: hypertension. HISTORY OF PRESENT ILLNESS: The patient is an 83-year-old lady with history of hypertension and peripheral edema, presented to [facility] complaining of shortness of breath. The patient usually lives at home alone. The patient felt more short of breath and swelling of the legs was increased. The patient was evaluated and was then transferred to [facility] as the patient is a non-[facility] member. REVIEW OF SYSTEMS: Negative other than what was mentioned in history of present illness. PAST MEDICAL HISTORY: As mentioned above. PAST SURGICAL HISTORY: Appendectomy. MEDICATIONS: Include aspirin, Coreg, chlorthalidone, Lasix, losartan, ibuprofen, and calcium carbonate. ALLERGIES: She has no known drug allergies. FAMILY HISTORY: Noncontributory. PHYSICAL EXAMINATION: VITAL SIGNS: Blood pressure 115/58, pulse 74, respirations 18, and temperature 98.4. HEAD AND NECK: Showed no JVD. LUNGS: Decreased breath sounds. CARDIOVASCULAR: Regular, S1 and S2 with no gallop or murmur. ABDOMEN: Soft. EXTREMITIES: Bilateral 2+ pitting edema. LABORATORY AND DIAGNOSTIC DATA: Her labs show white count 13, hemoglobin 11, hematocrit 33.8, and platelet count 186,000. Sodium 141, potassium 4.2, BUN 32, creatinine 1.3, and glucose 111. Phosphorus is 2.5. Magnesium is 1.7. Troponin is negative. BNP 2135. ASSESSMENT AND PLAN: 1. Worsening of the lower extremity edema. Her echocardiogram shows EF of 55%, so this is likely due to diastolic dysfunction as well as lymphedema, as echo showed mild left-sided dysfunction. We will start the patient on Lasix 40 mg IV b.i.d. and watch the patient clinically. 2. Hypertension. Continue Coreg 12.5 mg b.i.d., Lasix, and add p.r.n. clonidine to her medical regimen. 3. Questionable pneumonia. The patient already was seen by ID, started on IV antibiotic. 4. Lower extremity cellulitis. Venous duplex showed no evidence of DVT. The patient has had gram-positive bacteremia at [facility], suspect from cellulitis, on IV antibiotic. 5. Morbid obesity. Thank you very much for allowing me to participate in the care of this patient. Please do not hesitate to contact me for any questions regarding my evaluation. Bob Lowry M.D. DR: Jarad JOB#: [id number] CC:
[2019-02-05 04:00] VITALS: BP 136/66
[2019-02-05] MEDS: HYDROcodone/Acetamin 5/325 tab ORAL PRN (06:54)
--- NOTE | 2019-02-05 06:54 | Pulmonology Progress Note ---
Assessment/Plan Problems: (1) Acute on chronic diastolic congestive heart failure (2) Acute bronchitis (3) Cellulitis (4) Cardiomegaly (5) Mild pulmonary hypertension (6) Peripheral edema (7) Morbid obesity (8) History of hypertension Assessment/Plan wbc was high, todays labs pending no dyspnea ,on duoneb continue abx echo reviewed, EF of 55%, mild diastolic dysfunction with pulmonary hypertension decrease lasix. BNP noted dvt prophylaxis pt will need NH placement. Subjective ROS Limited/Unobtainable: No Constitutional: Reports: no symptoms HEENT: Repors: no symptoms Respiratory: Reports: no symptoms Allergies: Coded Allergies: No Known Allergies (Unverified , 02/03/19) Objective Last 24 Hour Vital Signs Date Time Temp Pulse Resp B/P (MAP) Pulse Ox O2 Delivery O2 Flow Rate FiO2 02/05/19 04:00 97.8 98 18 136/66 (89) 98 02/05/19 04:00 80 02/05/19 00:00 77 02/05/19 00:00 98.8 81 19 131/63 (85) 96 02/04/19 21:00 Nasal Cannula 2.0 02/04/19 20:55 95 Nasal Cannula 2.0 28 02/04/19 20:54 89 129/71 02/04/19 20:23 97.9 02/04/19 20:00 85 02/04/19 20:00 98.6 84 18 129/71 (90) 97 02/04/19 16:00 79 02/04/19 16:00 97.9 85 20 109/70 (83) 94 02/04/19 12:20 72 02/04/19 11:45 98.4 74 18 111/58 (75) 96 02/04/19 09:00 Nasal Cannula 2.0 02/04/19 08:45 73 144/69 02/04/19 08:00 97.7 73 18 144/69 (94) 96 Intake and Output 02/04/19 02/05/19 19:00 07:00 Intake Total 390 ml 130 ml Output Total 1750 ml 1300 ml Balance -1360 ml -1170 ml Intake Oral 390 ml 130 ml Output Urine Total 1750 ml 1300 ml Objective General Appearance: WD/WN, morbidly obese Lines, tubes and drains: peripheral HEENT: normocephalic, atraumatic Neck: non-tender, normal alignment Respiratory/Chest: chest wall non-tender, lungs clear Breasts: no masses Cardiovascular/Chest: normal peripheral pulses Abdomen: normal bowel sounds, non tender Genitourinary/Rectal: normal genital exam Extremities: normal range of motion, severe edema Skin Exam: other - hyperpigmentation in lower extremities Microbiology Date/Time Source Procedure Growth Status 02/03/19 14:25 Stool Clostridium difficile Toxin Assay - Final Complete Current Medications Medications (Trade) Dose Ordered Sig/Christel Route PRN Reason Start Time Stop Time Status Last Admin Dose Admin Acetaminophen (Tylenol) 650 mg Q6H PRN ORAL Mild Pain/Temp > 100.5 02/03/19 06:45 03/05/19 06:44 02/04/19 03:01 Acetaminophen/ Hydrocodone Bitart ([place] 5/325) 1 tab Q4H PRN ORAL Moderate Pain (Pain Scale 4-6) 02/04/19 11:15 02/11/19 11:14 02/04/19 19:53 Albuterol/ Ipratropium (Albuterol/ Ipratropium) 3 ml Q4H PRN HHN Shortness of Breath 02/04/19 11:15 02/09/19 11:14 Aspirin (Ecotrin) 81 mg DAILY ORAL 02/03/19 09:00 03/05/19 08:59 02/04/19 08:45 Carvedilol (Coreg) 12.5 mg EVERY 12 HOURS ORAL 02/03/19 09:00 03/05/19 08:59 02/04/19 20:54 Ceftriaxone Sodium 1 gm/ Dextrose 55 ml @ 110 mls/hr DAILY IVPB 02/03/19 09:00 02/10/19 08:59 02/04/19 08:47 Furosemide (Lasix) 40 mg EVERY 12 HOURS IV 02/04/19 21:00 03/05/19 08:59 02/04/19 20:54 Heparin Sodium (Porcine) (Heparin 5000 units/ml) 5,000 units EVERY 12 HOURS SUBQ 02/03/19 09:00 03/05/19 08:59 02/04/19 20:54 Ondansetron HCl (Zofran) 4 mg Q4H PRN IVP Nausea & Vomiting 02/03/19 06:45 03/05/19 06:44 Promethazine HCl/ Codeine (Phenergan with Codeine) 5 ml Q4H PRN ORAL For Cough 02/03/19 11:00 03/05/19 10:59 Vancomycin HCl (Vanco rx to dose) 1 ea DAILY PRN MISC Per rx protocol 02/03/19 06:45 03/05/19 06:44 Vancomycin HCl/ Dextrose 275 ml @ 137.5 mls/ hr Q24H IVPB 02/05/19 09:00 02/10/19 08:59 Mone Newton MD Feb 05, 2019 06:54
--- NOTE | 2019-02-05 07:52 | NUR ---
HAND-OFF: Report given to ISHAN Robins.
--- NOTE | 2019-02-05 07:55 | NUR ---
NURSE NOTES: Received patient from Blanco Gould. Patient is awake and alert in bed. No complain of pain or discomfort. Bed locked to lowest position side rails up X2. call arthur within patients reach. O2 at 2L/min via nasal cannula. no complain of SOB. Will anticipate needs.
[2019-02-05 08:00] VITALS: BP 110/67
[2019-02-05 08:30] LABS: ANION GAP 11 mmol/L (5-15); BLOOD UREA NITROGEN 21 mg/dL (7-18); CALCIUM 9.4 MG/DL (8.5-10.1); CARBON DIOXIDE 29 MMOL/L (21-32); CHLORIDE 104 MMOL/L (98-107); CREATININE 1.1 MG/DL (0.55-1.30); PHOSPHORUS 2.8 MG/DL (2.5-4.9); POTASSIUM 3.7 MMOL/L (3.5-5.1); SODIUM 144 MMOL/L (136-145)
[2019-02-05] MEDS: Aspirin EC 81mg tab ORAL SCH (08:57)
[2019-02-05] MEDS: Carvedilol 12.5mg tab ORAL SCH ×2 (08:57→20:49)
[2019-02-05] MEDS: Heparin 5000 units/ml inj SUBQ SCH ×2 (08:59→20:48)
[2019-02-05] MEDS: Vancomycin 1.5gm Premix IVPB SCH (08:59)
[2019-02-05] MEDS: cefTRIAXone 1 GM in D5W 55 ML IVPB SCH (08:59)
--- NOTE | 2019-02-05 10:24 | Infectious Diseases Prog Note ---
Assessment/Plan Assessment/Plan Abx: IV Vancomycin 02/03- Ceftriaxone 02/03- Assessment: SOB/wheezing- likely CHF exacerbation- r/o PNA -CXR: p -CXR (at [facility]): increased interstitial markings L LE edema- 2ry to Cellulitis -V. duplex no DVT GBS bacteremia (at [facility])- suspect from cellulitis -02/02 Bcx 2/ GBS Afebrile Leukocytosis ALEXANDRA, improving CHF HTN s/p appendectomy morbid obesity Plan: -Continue empiric IV Vancomycin and Ceftriaxone #3 -f/u cx -Monitor CBC/CMP, temperatures -f/u CXR -Bcx x2, sp cx -wound care per hospital protocol Thank you for this consultation. Will continue to follow along with you. Subjective Allergies: Coded Allergies: No Known Allergies (Unverified , 02/03/19) Subjective Afebrile Improved SOB now on 2L NC Leukocytosis 13 Objective Vital Signs Last 24 Hour Vital Signs Date Time Temp Pulse Resp B/P (MAP) Pulse Ox O2 Delivery O2 Flow Rate FiO2 02/05/19 08:57 83 110/67 02/05/19 08:00 99.1 83 22 110/67 (81) 95 02/05/19 07:48 97 Nasal Cannula 2.0 28 02/05/19 04:00 97.8 98 18 136/66 (89) 98 02/05/19 04:00 80 02/05/19 00:00 77 02/05/19 00:00 98.8 81 19 131/63 (85) 96 02/04/19 21:00 Nasal Cannula 2.0 02/04/19 20:55 95 Nasal Cannula 2.0 28 02/04/19 20:54 89 129/71 02/04/19 20:23 97.9 02/04/19 20:00 85 02/04/19 20:00 98.6 84 18 129/71 (90) 97 02/04/19 16:00 79 02/04/19 16:00 97.9 85 20 109/70 (83) 94 02/04/19 12:20 72 02/04/19 11:45 98.4 74 18 111/58 (75) 96 Height (Feet): 5 Height (Inches): 2.00 Weight (Pounds): 230 Objective General Appearance: NAD HEENT: normocephalic, atraumatic, EOMI Respiratory/Chest: CTAB Cardiovascular: RRR, S1, S2 Abdomen: normal bowel sounds, non tender Microbiology Date/Time Source Procedure Growth Status 02/03/19 14:25 Stool Clostridium difficile Toxin Assay - Final Complete Laboratory Tests Test 02/05/19 05:58 Sodium Level 144 MMOL/L (136-145) Potassium Level 3.7 MMOL/L (3.5-5.1) Chloride Level 104 MMOL/L (98-107) Carbon Dioxide Level 29 MMOL/L (21-32) Anion Gap 11 mmol/L (5-15) Blood Urea Nitrogen 21 mg/dL (7-18) H Creatinine 1.1 MG/DL (0.55-1.30) Estimat Glomerular Filtration Rate mL/min (>60) Glucose Level 103 MG/DL (74-106) Calcium Level 9.4 MG/DL (8.5-10.1) Phosphorus Level 2.8 MG/DL (2.5-4.9) Magnesium Level 1.7 MG/DL (1.8-2.4) L Troponin I 0.000 ng/mL (0.000-0.056) Pro-B-Type Natriuretic Peptide 1107 pg/mL (0-125) H Current Medications Medications (Trade) Dose Ordered Sig/Christel Route PRN Reason Start Time Stop Time Status Last Admin Dose Admin Acetaminophen (Tylenol) 650 mg Q6H PRN ORAL Mild Pain/Temp > 100.5 02/03/19 06:45 03/05/19 06:44 02/04/19 03:01 Acetaminophen/ Hydrocodone Bitart ([place] 5/325) 1 tab Q4H PRN ORAL Moderate Pain (Pain Scale 4-6) 02/04/19 11:15 02/11/19 11:14 02/05/19 06:54 Albuterol/ Ipratropium (Albuterol/ Ipratropium) 3 ml Q4H PRN HHN Shortness of Breath 02/04/19 11:15 02/09/19 11:14 Aspirin (Ecotrin) 81 mg DAILY ORAL 02/03/19 09:00 03/05/19 08:59 02/05/19 08:57 Carvedilol (Coreg) 12.5 mg EVERY 12 HOURS ORAL 02/03/19 09:00 03/05/19 08:59 02/05/19 08:57 Ceftriaxone Sodium 1 gm/ Dextrose 55 ml @ 110 mls/hr DAILY IVPB 02/03/19 09:00 02/10/19 08:59 02/05/19 08:59 Furosemide (Lasix) 40 mg EVERY 12 HOURS IV 02/04/19 21:00 03/05/19 08:59 02/05/19 08:57 Heparin Sodium (Porcine) (Heparin 5000 units/ml) 5,000 units EVERY 12 HOURS SUBQ 02/03/19 09:00 03/05/19 08:59 02/05/19 08:59 Ondansetron HCl (Zofran) 4 mg Q4H PRN IVP Nausea & Vomiting 02/03/19 06:45 03/05/19 06:44 Promethazine HCl/ Codeine (Phenergan with Codeine) 5 ml Q4H PRN ORAL For Cough 02/03/19 11:00 03/05/19 10:59 Vancomycin HCl (Vanco rx to dose) 1 ea DAILY PRN MISC Per rx protocol 02/03/19 06:45 03/05/19 06:44 Vancomycin HCl/ Dextrose 275 ml @ 137.5 mls/ hr Q24H IVPB 02/05/19 09:00 02/10/19 08:59 02/05/19 08:59 Joaquin Vaughn MD Feb 05, 2019 10:24
[2019-02-05 12:00] VITALS: BP 132/83
--- NOTE | 2019-02-05 13:28 | Internal Med Progress Note ---
Subjective Date of Service: Feb 05, 2019 Physician Name Tony Gaytan Attending Physician Mark Jones MD Current Medications Medications (Trade) Dose Ordered Sig/Christel Route PRN Reason Start Time Stop Time Status Last Admin Dose Admin Acetaminophen (Tylenol) 650 mg Q6H PRN ORAL Mild Pain/Temp > 100.5 02/03/19 06:45 03/05/19 06:44 02/04/19 03:01 Acetaminophen/ Hydrocodone Bitart ([place] 5/325) 1 tab Q4H PRN ORAL Moderate Pain (Pain Scale 4-6) 02/04/19 11:15 02/11/19 11:14 02/05/19 06:54 Albuterol/ Ipratropium (Albuterol/ Ipratropium) 3 ml Q4H PRN HHN Shortness of Breath 02/04/19 11:15 02/09/19 11:14 Aspirin (Ecotrin) 81 mg DAILY ORAL 02/03/19 09:00 03/05/19 08:59 02/05/19 08:57 Carvedilol (Coreg) 12.5 mg EVERY 12 HOURS ORAL 02/03/19 09:00 03/05/19 08:59 02/05/19 08:57 Ceftriaxone Sodium 1 gm/ Dextrose 55 ml @ 110 mls/hr DAILY IVPB 02/03/19 09:00 02/10/19 08:59 02/05/19 08:59 Furosemide (Lasix) 40 mg EVERY 12 HOURS IV 02/04/19 21:00 03/05/19 08:59 02/05/19 08:57 Heparin Sodium (Porcine) (Heparin 5000 units/ml) 5,000 units EVERY 12 HOURS SUBQ 02/03/19 09:00 03/05/19 08:59 02/05/19 08:59 Ondansetron HCl (Zofran) 4 mg Q4H PRN IVP Nausea & Vomiting 02/03/19 06:45 03/05/19 06:44 Promethazine HCl/ Codeine (Phenergan with Codeine) 5 ml Q4H PRN ORAL For Cough 02/03/19 11:00 03/05/19 10:59 Vancomycin HCl (Vanco rx to dose) 1 ea DAILY PRN MISC Per rx protocol 02/03/19 06:45 03/05/19 06:44 Vancomycin HCl/ Dextrose 275 ml @ 137.5 mls/ hr Q24H IVPB 02/05/19 09:00 02/10/19 08:59 02/05/19 08:59 Allergies: Coded Allergies: No Known Allergies (Unverified , 02/03/19) ROS Limited/Unobtainable: No Constitutional: Reports: no symptoms HEENT: Reports: no symptoms Cardiovascular: Reports: no symptoms Respiratory: Reports: shortness of breath Gastrointestinal/Abdominal: Reports: no symptoms Genitourinary: Reports: no symptoms Neurologic/Psychiatric: Reports: no symptoms Subjective 83 YO F admitted with shortness of breath. Now congestive heart failure. Cover for Int Med-Dr Jones. Objective Last Vital Signs Date Time Temp Pulse Resp B/P (MAP) Pulse Ox O2 Delivery O2 Flow Rate FiO2 02/05/19 12:00 98.5 78 18 132/83 (99) 96 02/05/19 09:00 Nasal Cannula 2.0 02/05/19 07:48 28 Laboratory Tests Test 02/05/19 05:58 Sodium Level 144 MMOL/L (136-145) Potassium Level 3.7 MMOL/L (3.5-5.1) Chloride Level 104 MMOL/L (98-107) Carbon Dioxide Level 29 MMOL/L (21-32) Anion Gap 11 mmol/L (5-15) Blood Urea Nitrogen 21 mg/dL (7-18) H Creatinine 1.1 MG/DL (0.55-1.30) Estimat Glomerular Filtration Rate mL/min (>60) Glucose Level 103 MG/DL (74-106) Calcium Level 9.4 MG/DL (8.5-10.1) Phosphorus Level 2.8 MG/DL (2.5-4.9) Magnesium Level 1.7 MG/DL (1.8-2.4) L Troponin I 0.000 ng/mL (0.000-0.056) Pro-B-Type Natriuretic Peptide 1107 pg/mL (0-125) H Microbiology Date/Time Source Procedure Growth Status 02/03/19 14:25 Stool Clostridium difficile Toxin Assay - Final Complete Intake and Output 02/04/19 02/05/19 18:59 06:59 Intake Total 390 ml 130 ml Output Total 1750 ml 1300 ml Balance -1360 ml -1170 ml Intake Oral 390 ml 130 ml Output Urine Total 1750 ml 1300 ml Objective PHYSICAL EXAMINATION: GENERAL: The patient is a well-developed and well-nourished female, in no apparent distress. HEENT: Eyes, pupils are equal and responsive to light and accommodation. Extraocular movements are intact. NECK: Supple without lymphadenopathy. CHEST: Lungs are clear to auscultation bilaterally without wheezes or rales. CARDIOVASCULAR: Regular rhythm and rate. S1 and S2 are normal without murmurs, rubs, or gallops. ABDOMEN: Soft, nontender, and nondistended. Positive bowel sounds. No evidence of hepatosplenomegaly. Currently, no rebound or guarding noted. EXTREMITIES: Negative for clubbing, cyanosis, or edema. NEUROLOGICAL: Cranial nerves II through XII are grossly intact without focal deficits. Motor strength is 5/5 bilaterally. Deep tendon reflexes are 2+ plantar. Assessment/Plan Assessment/Plan ASSESSMENT: This is an 83-year-old female. 1. Shortness of breath. 2. Wheezing. 3. Edema of the bilateral lower extremities. 4. Diastolic Congestive heart failure-acute on chronic 5. Hypertension. 6. Cellulitis left leg 7. Bacteremia-Group B Strep TREATMENT: 1. Shortness of breath/wheezing/congestive heart failure. Cardiology consultation has been obtained with Dr. Lowry. Echocardiogram LVEF= 55%. We will follow recommendation of Cardiology. 2. Hypertension. Continue chlorthalidone, losartan, and carvedilol as above. 3. Continue Vanco and ceftriaxone per ID-Tony Uribe MD Feb 05, 2019 13:28
--- NOTE | 2019-02-05 14:15 | Cardiac Electrophysiology PN ---
Assessment/Plan Assessment/Plan 1. Worsening of the lower extremity edema. Her echocardiogram shows EF of 55%, so this is likely due to diastolic dysfunction as well as lymphedema, as echo showed mild left-sided dysfunction. Continue Lasix 40 mg IV b.i.d. 2. Hypertension. Continue Coreg 12.5 mg b.i.d., Lasix, and p.r.n. clonidine 3. Questionable pneumonia. The patient already was seen by ID, started on IV antibiotic. 4. Lower extremity cellulitis. Venous duplex showed no evidence of DVT. The patient has had gram-positive bacteremia at [place], suspect from cellulitis on IV antibiotic. 5. Morbid obesity. Subjective Subjective Alert in NAD. No CP or SOB Objective Last 24 Hour Vital Signs Date Time Temp Pulse Resp B/P (MAP) Pulse Ox O2 Delivery O2 Flow Rate FiO2 02/05/19 12:00 98.5 78 18 132/83 (99) 96 02/05/19 12:00 73 02/05/19 09:00 Nasal Cannula 2.0 02/05/19 08:57 83 110/67 02/05/19 08:00 91 02/05/19 08:00 99.1 83 22 110/67 (81) 95 02/05/19 07:48 97 Nasal Cannula 2.0 28 02/05/19 04:00 97.8 98 18 136/66 (89) 98 02/05/19 04:00 80 02/05/19 00:00 77 02/05/19 00:00 98.8 81 19 131/63 (85) 96 02/04/19 21:00 Nasal Cannula 2.0 02/04/19 20:55 95 Nasal Cannula 2.0 28 02/04/19 20:54 89 129/71 02/04/19 20:23 97.9 02/04/19 20:00 85 02/04/19 20:00 98.6 84 18 129/71 (90) 97 02/04/19 16:00 79 02/04/19 16:00 97.9 85 20 109/70 (83) 94 Intake and Output 02/04/19 02/05/19 18:59 06:59 Intake Total 390 ml 130 ml Output Total 1750 ml 1300 ml Balance -1360 ml -1170 ml Intake Oral 390 ml 130 ml Output Urine Total 1750 ml 1300 ml Laboratory Tests Test 02/05/19 05:58 Sodium Level 144 MMOL/L (136-145) Potassium Level 3.7 MMOL/L (3.5-5.1) Chloride Level 104 MMOL/L (98-107) Carbon Dioxide Level 29 MMOL/L (21-32) Anion Gap 11 mmol/L (5-15) Blood Urea Nitrogen 21 mg/dL (7-18) H Creatinine 1.1 MG/DL (0.55-1.30) Estimat Glomerular Filtration Rate mL/min (>60) Glucose Level 103 MG/DL (74-106) Calcium Level 9.4 MG/DL (8.5-10.1) Phosphorus Level 2.8 MG/DL (2.5-4.9) Magnesium Level 1.7 MG/DL (1.8-2.4) L Troponin I 0.000 ng/mL (0.000-0.056) Pro-B-Type Natriuretic Peptide 1107 pg/mL (0-125) H Microbiology Date/Time Source Procedure Growth Status 02/03/19 14:25 Stool Clostridium difficile Toxin Assay - Final Complete Objective HEAD AND NECK: No JVD. LUNGS: Decreased breath sounds. CARDIOVASCULAR: Regular, S1 and S2 with no gallop or murmur. ABDOMEN: Soft. EXTREMITIES: Bilateral 2+ pitting edema. Bob Lowry MD Feb 05, 2019 14:15
[2019-02-05 16:00] VITALS: BP 115/65
--- NOTE | 2019-02-05 19:47 | NUR ---
HAND-OFF: Report given to Blanco Flores.Plan of care endorsed.
[2019-02-05 20:00] VITALS: BP 126/72
[2019-02-06] VITALS: BP 132/79
[2019-02-06 04:00] VITALS: BP 133/75
--- NOTE | 2019-02-06 07:02 | NUR ---
HAND-OFF: Report given to ISHAN Robins. Endorsed plan of care.
--- NOTE | 2019-02-06 07:42 | NUR ---
NURSE NOTES: Received patient from Blanco Riley. Patient is awake and alert. eating breakfast on sitting position. Safety precautions in place. side rails X2 up for safety. bed locked on lowest position. bed alarm activated. Patient oriented to call arthur and its use. will anticipate needs an monitor patient throughout this shift.
[2019-02-06 08:00] VITALS: BP 125/62
[2019-02-06 08:00] LABS: BASOPHILS % (AUTO) 0.8 % (0.0-2.0); EOSINOPHILS % (AUTO) 3.7 % (0.0-3.0); HEMATOCRIT 37.6 % (37.0-47.0); HEMOGLOBIN 12.4 G/DL (12.0-16.0); LYMPHOCYTES % (AUTO) 15.2 % (20.0-45.0); MEAN CORPUSCULAR VOLUME 87 FL (80-99); MONOCYTES % (AUTO) 6.7 % (1.0-10.0); NEUTROPHILS % (AUTO) 73.6 % (45.0-75.0); PLATELET COUNT 272 K/UL (150-450); RED BLOOD COUNT 4.33 M/UL (4.20-5.40); RED CELL DISTRIBUTION WIDTH 12.4 % (11.6-14.8); WHITE BLOOD COUNT 13.8 K/UL (4.8-10.8)
[2019-02-06 08:09] LABS: ANION GAP 9 mmol/L (5-15); BLOOD UREA NITROGEN 19 mg/dL (7-18); CALCIUM 9.3 MG/DL (8.5-10.1); CARBON DIOXIDE 32 MMOL/L (21-32); CHLORIDE 101 MMOL/L (98-107); CREATININE 1.1 MG/DL (0.55-1.30); POTASSIUM 3.4 MMOL/L (3.5-5.1); SODIUM 142 MMOL/L (136-145)
[2019-02-06] MEDS: cefTRIAXone 1 GM in D5W 55 ML IVPB SCH (09:25)
[2019-02-06] MEDS: Carvedilol 12.5mg tab ORAL SCH ×2 (09:26→21:28)
[2019-02-06] MEDS: Vancomycin 1.5gm Premix IVPB SCH (09:26)
[2019-02-06] MEDS: Aspirin EC 81mg tab ORAL SCH (09:26)
[2019-02-06] MEDS: Heparin 5000 units/ml inj SUBQ SCH ×2 (09:29→21:29)
--- NOTE | 2019-02-06 10:00 | NUR ---
NURSE NOTES: Received call from Yaneli of [facility]. may give vancomycin IV this am with Vanco trough result of 15.2.
[2019-02-06 12:00] VITALS: BP 119/60
--- NOTE | 2019-02-06 15:00 | NUR ---
NURSE NOTES: Dr Jones made aware of Potassium level of 3.4 new order received and carried out. Will follow.
[2019-02-06 16:00] VITALS: BP 128/60
[2019-02-06] MEDS: HYDROcodone/Acetamin 5/325 tab ORAL PRN (16:24)
--- NOTE | 2019-02-06 17:17 | Internal Med Progress Note ---
Subjective Date of Service: Feb 06, 2019 Physician Name Tony Gaytan Attending Physician Mark Jones MD Current Medications Medications (Trade) Dose Ordered Sig/Christel Route PRN Reason Start Time Stop Time Status Last Admin Dose Admin Acetaminophen (Tylenol) 650 mg Q6H PRN ORAL Mild Pain/Temp > 100.5 02/03/19 06:45 03/05/19 06:44 02/04/19 03:01 Acetaminophen/ Hydrocodone Bitart ([place] 5/325) 1 tab Q4H PRN ORAL Moderate Pain (Pain Scale 4-6) 02/04/19 11:15 02/11/19 11:14 02/06/19 16:24 Albuterol/ Ipratropium (Albuterol/ Ipratropium) 3 ml Q4H PRN HHN Shortness of Breath 02/04/19 11:15 02/09/19 11:14 Aspirin (Ecotrin) 81 mg DAILY ORAL 02/03/19 09:00 03/05/19 08:59 02/06/19 09:26 Carvedilol (Coreg) 12.5 mg EVERY 12 HOURS ORAL 02/03/19 09:00 03/05/19 08:59 02/06/19 09:26 Ceftriaxone Sodium 1 gm/ Dextrose 55 ml @ 110 mls/hr DAILY IVPB 02/03/19 09:00 02/10/19 08:59 02/06/19 09:25 Furosemide (Lasix) 40 mg EVERY 12 HOURS IV 02/04/19 21:00 03/05/19 08:59 02/06/19 09:26 Heparin Sodium (Porcine) (Heparin 5000 units/ml) 5,000 units EVERY 12 HOURS SUBQ 02/03/19 09:00 03/05/19 08:59 02/06/19 09:29 Ondansetron HCl (Zofran) 4 mg Q4H PRN IVP Nausea & Vomiting 02/03/19 06:45 03/05/19 06:44 Promethazine HCl/ Codeine (Phenergan with Codeine) 5 ml Q4H PRN ORAL For Cough 02/03/19 11:00 03/05/19 10:59 Vancomycin HCl (Vanco rx to dose) 1 ea DAILY PRN MISC Per rx protocol 02/03/19 06:45 03/05/19 06:44 Vancomycin HCl/ Dextrose 275 ml @ 137.5 mls/ hr Q24H IVPB 02/05/19 09:00 02/10/19 08:59 02/06/19 09:26 Allergies: Coded Allergies: No Known Allergies (Unverified , 02/03/19) ROS Limited/Unobtainable: No Constitutional: Reports: no symptoms HEENT: Reports: no symptoms Cardiovascular: Reports: no symptoms Respiratory: Reports: shortness of breath Gastrointestinal/Abdominal: Reports: no symptoms Genitourinary: Reports: no symptoms Neurologic/Psychiatric: Reports: no symptoms Subjective 83 YO F admitted with shortness of breath. Now congestive heart failure. Cover for Int Med-Dr Jones. Objective Last Vital Signs Date Time Temp Pulse Resp B/P (MAP) Pulse Ox O2 Delivery O2 Flow Rate FiO2 02/06/19 16:54 98.1 02/06/19 12:00 75 21 119/60 (79) 97 02/06/19 09:00 Nasal Cannula 2.0 02/06/19 07:19 28 Laboratory Tests Test 02/06/19 07:42 White Blood Count 13.8 K/UL (4.8-10.8) H Red Blood Count 4.33 M/UL (4.20-5.40) Hemoglobin 12.4 G/DL (12.0-16.0) Hematocrit 37.6 % (37.0-47.0) Mean Corpuscular Volume 87 FL (80-99) Mean Corpuscular Hemoglobin 28.7 PG (27.0-31.0) Mean Corpuscular Hemoglobin Concent 33.0 G/DL (32.0-36.0) Red Cell Distribution Width 12.4 % (11.6-14.8) Platelet Count 272 K/UL (150-450) Mean Platelet Volume 6.5 FL (6.5-10.1) Neutrophils (%) (Auto) 73.6 % (45.0-75.0) Lymphocytes (%) (Auto) 15.2 % (20.0-45.0) L Monocytes (%) (Auto) 6.7 % (1.0-10.0) Eosinophils (%) (Auto) 3.7 % (0.0-3.0) H Basophils (%) (Auto) 0.8 % (0.0-2.0) Sodium Level 142 MMOL/L (136-145) Potassium Level 3.4 MMOL/L (3.5-5.1) L Chloride Level 101 MMOL/L (98-107) Carbon Dioxide Level 32 MMOL/L (21-32) Anion Gap 9 mmol/L (5-15) Blood Urea Nitrogen 19 mg/dL (7-18) H Creatinine 1.1 MG/DL (0.55-1.30) Estimat Glomerular Filtration Rate mL/min (>60) Glucose Level 111 MG/DL (74-106) H Calcium Level 9.3 MG/DL (8.5-10.1) Vancomycin Level Trough 15.2 ug/mL (5.0-12.0) H Microbiology Date/Time Source Procedure Growth Status 02/04/19 15:35 Blood Blood Culture - Preliminary NO GROWTH AFTER 24 HOURS Resulted 02/04/19 15:32 Blood Blood Culture - Preliminary NO GROWTH AFTER 24 HOURS Resulted Intake and Output 02/05/19 02/06/19 18:59 06:59 Intake Total 320 ml Output Total 1000 ml 800 ml Balance -680 ml -800 ml Intake Oral 320 ml Output Urine Total 1000 ml 800 ml Objective PHYSICAL EXAMINATION: GENERAL: The patient is a well-developed and well-nourished female, in no apparent distress. HEENT: Eyes, pupils are equal and responsive to light and accommodation. Extraocular movements are intact. NECK: Supple without lymphadenopathy. CHEST: Lungs are clear to auscultation bilaterally without wheezes or rales. CARDIOVASCULAR: Regular rhythm and rate. S1 and S2 are normal without murmurs, rubs, or gallops. ABDOMEN: Soft, nontender, and nondistended. Positive bowel sounds. No evidence of hepatosplenomegaly. Currently, no rebound or guarding noted. EXTREMITIES: Negative for clubbing, cyanosis, or edema. NEUROLOGICAL: Cranial nerves II through XII are grossly intact without focal deficits. Motor strength is 5/5 bilaterally. Deep tendon reflexes are 2+ plantar. Assessment/Plan Assessment/Plan ASSESSMENT: This is an 83-year-old female. 1. Shortness of breath. 2. Wheezing. 3. Edema of the bilateral lower extremities. 4. Diastolic Congestive heart failure-acute on chronic 5. Hypertension. 6. Cellulitis left leg 7. Bacteremia-Group B Strep TREATMENT: 1. Shortness of breath/wheezing/congestive heart failure. Cardiology consultation has been obtained with Dr. Lowry. Echocardiogram LVEF= 55%. We will follow recommendation of Cardiology. 2. Hypertension. Continue chlorthalidone, losartan, and carvedilol as above. 3. Continue Vanco and ceftriaxone per ID-Tony Uribe MD Feb 06, 2019 17:17
--- NOTE | 2019-02-06 18:11 | Pulmonology Progress Note ---
Assessment/Plan Problems: (1) Acute on chronic diastolic congestive heart failure (2) Acute bronchitis (3) Cellulitis (4) Cardiomegaly (5) Mild pulmonary hypertension (6) Peripheral edema (7) Morbid obesity (8) History of hypertension Assessment/Plan wbcstill high no dyspnea ,on duoneb continue abx echo reviewed, EF of 55%, mild diastolic dysfunction with pulmonary hypertension decrease lasix. BNP noted dvt prophylaxis pt will need NH placement. Subjective ROS Limited/Unobtainable: No Constitutional: Reports: no symptoms HEENT: Repors: no symptoms Allergies: Coded Allergies: No Known Allergies (Unverified , 02/03/19) Objective Last 24 Hour Vital Signs Date Time Temp Pulse Resp B/P (MAP) Pulse Ox O2 Delivery O2 Flow Rate FiO2 02/06/19 16:54 98.1 02/06/19 16:00 81 02/06/19 16:00 98.1 78 21 128/60 (82) 97 02/06/19 12:00 98.1 75 21 119/60 (79) 97 02/06/19 12:00 69 02/06/19 09:26 82 125/62 02/06/19 09:00 81 02/06/19 09:00 Nasal Cannula 2.0 02/06/19 08:00 98.1 82 22 125/62 (83) 97 02/06/19 07:19 97 Nasal Cannula 2.0 28 02/06/19 04:00 97.5 79 17 133/75 (94) 99 02/06/19 04:00 79 02/06/19 00:00 77 02/06/19 00:00 98.7 77 18 132/79 (96) 95 02/05/19 21:00 Nasal Cannula 2.0 02/05/19 20:49 87 132/62 02/05/19 20:00 90 02/05/19 20:00 97.1 90 17 126/72 (90) 95 02/05/19 19:26 95 Nasal Cannula 2.0 28 Intake and Output 02/05/19 02/06/19 18:59 06:59 Intake Total 320 ml Output Total 1000 ml 800 ml Balance -680 ml -800 ml Intake Oral 320 ml Output Urine Total 1000 ml 800 ml Objective General Appearance: WD/WN, morbidly obese Lines, tubes and drains: peripheral HEENT: normocephalic, atraumatic Neck: non-tender, normal alignment Respiratory/Chest: chest wall non-tender, lungs clear Breasts: no masses Cardiovascular/Chest: normal peripheral pulses Abdomen: normal bowel sounds, non tender Genitourinary/Rectal: normal genital exam Extremities: normal range of motion, severe edema Skin Exam: other - hyperpigmentation in lower extremities Microbiology Date/Time Source Procedure Growth Status 02/04/19 15:35 Blood Blood Culture - Preliminary NO GROWTH AFTER 24 HOURS Resulted 02/04/19 15:32 Blood Blood Culture - Preliminary NO GROWTH AFTER 24 HOURS Resulted Laboratory Tests 02/06/19 07:42: White Blood Count 13.8H, Red Blood Count 4.33, Hemoglobin 12.4, Hematocrit 37.6 , Mean Corpuscular Volume 87, Mean Corpuscular Hemoglobin 28.7, Mean Corpuscular Hemoglobin Concent 33.0, Red Cell Distribution Width 12.4, Platelet Count 272, Mean Platelet Volume 6.5, Neutrophils (%) (Auto) 73.6, Lymphocytes (% ) (Auto) 15.2L, Monocytes (%) (Auto) 6.7, Eosinophils (%) (Auto) 3.7H, Basophils (%) (Auto) 0.8, Sodium Level 142, Potassium Level 3.4L, Chloride Level 101, Carbon Dioxide Level 32, Anion Gap 9, Blood Urea Nitrogen 19H, Creatinine 1.1, Estimat Glomerular Filtration Rate , Glucose Level 111H, Calcium Level 9.3, Vancomycin Level Trough 15.2H Current Medications Medications (Trade) Dose Ordered Sig/Christel Route PRN Reason Start Time Stop Time Status Last Admin Dose Admin Acetaminophen (Tylenol) 650 mg Q6H PRN ORAL Mild Pain/Temp > 100.5 02/03/19 06:45 03/05/19 06:44 02/04/19 03:01 Acetaminophen/ Hydrocodone Bitart ([place] 5/325) 1 tab Q4H PRN ORAL Moderate Pain (Pain Scale 4-6) 02/04/19 11:15 02/11/19 11:14 02/06/19 16:24 Albuterol/ Ipratropium (Albuterol/ Ipratropium) 3 ml Q4H PRN HHN Shortness of Breath 02/04/19 11:15 02/09/19 11:14 Aspirin (Ecotrin) 81 mg DAILY ORAL 02/03/19 09:00 03/05/19 08:59 02/06/19 09:26 Carvedilol (Coreg) 12.5 mg EVERY 12 HOURS ORAL 02/03/19 09:00 03/05/19 08:59 02/06/19 09:26 Ceftriaxone Sodium 1 gm/ Dextrose 55 ml @ 110 mls/hr DAILY IVPB 02/03/19 09:00 02/10/19 08:59 02/06/19 09:25 Furosemide (Lasix) 40 mg EVERY 12 HOURS IV 02/04/19 21:00 03/05/19 08:59 02/06/19 09:26 Heparin Sodium (Porcine) (Heparin 5000 units/ml) 5,000 units EVERY 12 HOURS SUBQ 02/03/19 09:00 03/05/19 08:59 02/06/19 09:29 Ondansetron HCl (Zofran) 4 mg Q4H PRN IVP Nausea & Vomiting 02/03/19 06:45 03/05/19 06:44 Promethazine HCl/ Codeine (Phenergan with Codeine) 5 ml Q4H PRN ORAL For Cough 02/03/19 11:00 03/05/19 10:59 Vancomycin HCl (Vanco rx to dose) 1 ea DAILY PRN MISC Per rx protocol 02/03/19 06:45 03/05/19 06:44 Vancomycin HCl/ Dextrose 275 ml @ 137.5 mls/ hr Q24H IVPB 02/05/19 09:00 02/10/19 08:59 02/06/19 09:26 Mone Newton MD Feb 06, 2019 18:11
--- NOTE | 2019-02-06 19:04 | Cardiac Electrophysiology PN ---
Assessment/Plan Assessment/Plan 1. Worsening of the lower extremity edema. Her echocardiogram shows EF of 55%, so this is likely due to diastolic dysfunction as well as lymphedema, as echo showed mild left-sided dysfunction. Continue Lasix 40 mg IV b.i.d. 2. Hypertension. Continue Coreg 12.5 mg b.i.d., Lasix, and p.r.n. clonidine 3. Questionable pneumonia. The patient already was seen by ID, started on IV antibiotic. 4. Left Lower extremity cellulitis. No evidence of DVT. The patient has had gram-positive bacteremia at [place], suspect from cellulitis on IV antibiotic. 5. Morbid obesity. KARLA RN Subjective Subjective Alert in NAD. No CP or SOB. RN at bedside. On Abx. Objective Last 24 Hour Vital Signs Date Time Temp Pulse Resp B/P (MAP) Pulse Ox O2 Delivery O2 Flow Rate FiO2 02/06/19 16:54 98.1 02/06/19 16:00 81 02/06/19 16:00 98.1 78 21 128/60 (82) 97 02/06/19 12:00 98.1 75 21 119/60 (79) 97 02/06/19 12:00 69 02/06/19 09:26 82 125/62 02/06/19 09:00 81 02/06/19 09:00 Nasal Cannula 2.0 02/06/19 08:00 98.1 82 22 125/62 (83) 97 02/06/19 07:19 97 Nasal Cannula 2.0 28 02/06/19 04:00 97.5 79 17 133/75 (94) 99 02/06/19 04:00 79 02/06/19 00:00 77 02/06/19 00:00 98.7 77 18 132/79 (96) 95 02/05/19 21:00 Nasal Cannula 2.0 02/05/19 20:49 87 132/62 02/05/19 20:00 90 02/05/19 20:00 97.1 90 17 126/72 (90) 95 02/05/19 19:26 95 Nasal Cannula 2.0 28 Intake and Output 02/05/19 02/06/19 18:59 06:59 Intake Total 320 ml Output Total 1000 ml 800 ml Balance -680 ml -800 ml Intake Oral 320 ml Output Urine Total 1000 ml 800 ml Laboratory Tests Test 02/06/19 07:42 White Blood Count 13.8 K/UL (4.8-10.8) H Red Blood Count 4.33 M/UL (4.20-5.40) Hemoglobin 12.4 G/DL (12.0-16.0) Hematocrit 37.6 % (37.0-47.0) Mean Corpuscular Volume 87 FL (80-99) Mean Corpuscular Hemoglobin 28.7 PG (27.0-31.0) Mean Corpuscular Hemoglobin Concent 33.0 G/DL (32.0-36.0) Red Cell Distribution Width 12.4 % (11.6-14.8) Platelet Count 272 K/UL (150-450) Mean Platelet Volume 6.5 FL (6.5-10.1) Neutrophils (%) (Auto) 73.6 % (45.0-75.0) Lymphocytes (%) (Auto) 15.2 % (20.0-45.0) L Monocytes (%) (Auto) 6.7 % (1.0-10.0) Eosinophils (%) (Auto) 3.7 % (0.0-3.0) H Basophils (%) (Auto) 0.8 % (0.0-2.0) Sodium Level 142 MMOL/L (136-145) Potassium Level 3.4 MMOL/L (3.5-5.1) L Chloride Level 101 MMOL/L (98-107) Carbon Dioxide Level 32 MMOL/L (21-32) Anion Gap 9 mmol/L (5-15) Blood Urea Nitrogen 19 mg/dL (7-18) H Creatinine 1.1 MG/DL (0.55-1.30) Estimat Glomerular Filtration Rate mL/min (>60) Glucose Level 111 MG/DL (74-106) H Calcium Level 9.3 MG/DL (8.5-10.1) Vancomycin Level Trough 15.2 ug/mL (5.0-12.0) H Microbiology Date/Time Source Procedure Growth Status 02/04/19 15:35 Blood Blood Culture - Preliminary NO GROWTH AFTER 24 HOURS Resulted 02/04/19 15:32 Blood Blood Culture - Preliminary NO GROWTH AFTER 24 HOURS Resulted Objective HEAD AND NECK: No JVD. LUNGS: Decreased breath sounds. CARDIOVASCULAR: Regular, S1 and S2 with no gallop or murmur. ABDOMEN: Soft. EXTREMITIES: Bilateral 2+ pitting edema.Left leg ulcer covered with dressings Bob Lowry MD Feb 06, 2019 19:04
--- NOTE | 2019-02-06 19:34 | NUR ---
HAND-OFF: Report given to Blanco Riley.zechariah of care endorsed.
--- NOTE | 2019-02-06 19:35 | NUR ---
NURSE NOTES: Received pt from ISHAN Robins. Pt is awake and resting in bed. Nasal cannula 2L on patient. Iv site intact. Bed locked in lowest position, call light within reach. Will continue with plan of care.
[2019-02-06 20:00] VITALS: BP 111/45
[2019-02-07] VITALS: BP 127/65
[2019-02-07 04:00] VITALS: BP 128/66
--- NOTE | 2019-02-07 07:15 | NUR ---
HAND-OFF: Report given to ISHAN Egan. Endorsed plan of care.
--- NOTE | 2019-02-07 07:30 | NUR ---
NURSE NOTES: Received report from ISHAN Riley. Patient in bed resting, no active s/s cardiac, respiratory distress noticed at this time. Patient AOx3, SR with HR 75, patient on 2L oxygen via NC at this time. IV on right FA 22G, asymptomatic, patent, intact. Bed in lowest position, side rails upx2, call light within reach. will continue to monitor.
[2019-02-07 08:00] VITALS: BP 130/59
[2019-02-07 08:05] LABS: BASOPHILS % (AUTO) 0.4 % (0.0-2.0); EOSINOPHILS % (AUTO) 3.3 % (0.0-3.0); HEMATOCRIT 33.8 % (37.0-47.0); HEMOGLOBIN 11.2 G/DL (12.0-16.0); LYMPHOCYTES % (AUTO) 14.4 % (20.0-45.0); MEAN CORPUSCULAR VOLUME 87 FL (80-99); MONOCYTES % (AUTO) 5.3 % (1.0-10.0); NEUTROPHILS % (AUTO) 76.6 % (45.0-75.0); PLATELET COUNT 270 K/UL (150-450); RED BLOOD COUNT 3.89 M/UL (4.20-5.40); RED CELL DISTRIBUTION WIDTH 12.7 % (11.6-14.8); WHITE BLOOD COUNT 14.5 K/UL (4.8-10.8)
--- NOTE | 2019-02-07 08:22 | NUR ---
CASE MANAGEMENT:REVIEW 02/07/19 SI: AC/CHR CHF. CELLULITIS PERIPHERAL EDEMA 97.6 75 18 128/66 95% ON 2L/NC WBC+14.5 IS: IV VANCOMYCIN Q24 IV ROCEPHIN Q24 IV LASIX Q12 HEPARIN SQ Q12 ASA PO QD COREG PO Q12 : TELEMETRY STATUS DCP: FROM HOME ~ REFER TO SNF?
[2019-02-07] MEDS: cefTRIAXone 1 GM in D5W 55 ML IVPB SCH (08:32)
[2019-02-07] MEDS: Aspirin EC 81mg tab ORAL SCH (08:32)
[2019-02-07] MEDS: Carvedilol 12.5mg tab ORAL SCH (08:32)
[2019-02-07] MEDS: Heparin 5000 units/ml inj SUBQ SCH (08:33)
[2019-02-07 08:41] LABS: ANION GAP 7 mmol/L (5-15); BLOOD UREA NITROGEN 18 mg/dL (7-18); CALCIUM 9.1 MG/DL (8.5-10.1); CARBON DIOXIDE 33 MMOL/L (21-32); CHLORIDE 101 MMOL/L (98-107); CREATININE 1.1 MG/DL (0.55-1.30); POTASSIUM 3.7 MMOL/L (3.5-5.1); SODIUM 141 MMOL/L (136-145)
[2019-02-07] MEDS: Vancomycin 1.5gm Premix IVPB SCH (09:26)
--- NOTE | 2019-02-07 10:35 | NUR ---
RD ASSESSMENT & RECOMMENDATIONS SEE CARE ACTIVITY FOR COMPLETE ASSESSMENT DAILY ESTIMATED NEEDS: Needs based on wounds, obese 61kg adj 25-35 kcals/kg [id number] total kcals 1.25-1.5 g protein/kg 76-92 g total protein Fluid per MD, on lasix NUTRITION DIAGNOSIS: Increased protein needs r/t wound healing, as evidenced by pt w/ multiple wounds including BL buttock w/ full thickness injuries. PO DIET RECOMMENDATIONS: Maintain Cardiac diet/ texture per AFFILIATE MANAGER ADDITIONAL RECOMMENDATIONS: 1) Recalibrate bed scale w/ added P200 mattress + Daily wts on calibrated bed scale for diuretics 2) Check lytes daily on lasix 3) WOUND CARE: Add NARAYAN / fruit punch in 6oz water BID + MVI x1 + Vit C 250 mg BID 4) Add snacks in b.w meals w/ current variable po intake
--- NOTE | 2019-02-07 10:37 | Diagnostic Imaging Report ---
Indication: Shortness of breath, cough Technique: One view of the chest Comparison: none Findings: Inspiration is suboptimal. Atelectatic changes are seen at both lung bases. The heart is borderline enlarged. Surgical clips are seen in the left axilla Impression: No acute process. Findings as noted
--- NOTE | 2019-02-07 11:38 | NUR ---
REFERRED BY DR CARABALLO (PRIMARY DR KAPOOR) FOR A SWALLOWING EVALUATION, SEE FULL REPORT IN [facility] ACTIVITY SECTION. DYSPHAGIA RISK FACTORS FOR THIS 83 Y.O.F.: ACUTE ISSUES: SOB, BRONCHITIS, RENAL INSUFFICIENCY, DECREASED ALBUMIN 0.6, CELLULITIS, LYMPHEDEMA, CHF, CARDIOMEGALY, POOR HISTORIAN PER M.Corine. RELEVANT MEDS: NORCO COMORBITIES AND H/O: HTN DIET/LIQUID HISTORY FAMILY AND HER DTR DENY THAT SHE HAS SWALLOWING PROBLEMS. MORBIDLY OBESE PER MD AND HAS LOW ALBUMIN 0.6. NO POLST/ADVANCE DIRECTIVE REGARDING SKILLED NURSING ARTIFICIAL NUTRITION IN CHART. PATIENT IS FROM HOME (LIVES ALONE). DIET AT HOME WAS REGULAR TEXTURE AND THIN LIQUIDS. CURRENTLY ON A CARDIAC REGULAR TEXTURE DIET WITH THIN LIQUIDS WITH POOR TO FAIR INTAKE (25/75%). RD CONSULT BUT REPORT DID NOT MENTION DIET TYPE RECOMMENDATIONS TO DATE. PER RNMELYSSA, NO OVERT S/S OF ASPIRATION WITH CURRENT DIET/LIQUIDS AND TAKES MEDS WHOLE WITH WATER. ALERT AND ABLE TO EXPRESS NEEDS. HAS 2 LITERS 02 NC. HAS UPPER/LOWER DENTURES THAT FIT WELL, TONGUE SLIGHT WHITISH, NEEDS ORAL CARE. INITIAL IMPRESSIONS GROSSLY FUNCTIONAL SWALLOW WITH THIN LIQUIDS VIA STRAW SEQUENTIAL SIPS, PUREED TSP, AND MASTICATED SOLIDS (1/2 CRACKER) W/O OVERT ASPIRATION. ? SILENT ASP RISK NO INCREASE IN RR WITH PO INTAKE INTAKE 25 TO 75% RECOMMENDATIONS: CONTINUE WITH CURRENT DIET/LIQUIDS CONSIDER MOD BARIUM SWALLOW STUDY ONLY IF INDICATED AND BREATHING ISSUES ARE WORSENED OP ONLY TO FURTHER ASSESS SWALLOW, DETERMINE IF THERE IS A SILENT ASP RISK, AND ATTEMPT TRIAL TX. WILL D/C FROM SKILLED OFFICE ASSISTANT SERVICES AT THIS TIME SINCE SKILLS ARE GROSSY FUNCTIONAL. EDUCATED DTR AND PATIENT ON NEED TO CLEAN DENTURES AND REMOVE WHEN PT IS SLEEPING. DTR TO BRING IN [facility]URE [facility]OSPITAL RECEIVING CLERK. D/W RN, MELYSSA, AND PATIENT/DTR.
--- NOTE | 2019-02-07 11:38 | Cardiac Electrophysiology PN ---
Assessment/Plan Assessment/Plan 1. Worsening of the lower extremity edema. EF 55%, so this is likely due to diastolic dysfunction Continue Lasix 40 mg IV b.i.d. 2. Hypertension. Continue Coreg 12.5 mg b.i.d., Lasix, and p.r.n. clonidine 3. Questionable pneumonia. The patient already was seen by ID, started on IV antibiotic. 4. Left Lower extremity cellulitis. No evidence of DVT. 5. Gram-positive bacteremia at [place], suspect from cellulitis on IV antibiotic. 6. Morbid obesity. DW RN and Niece Subjective Subjective Alert in NAD. RN and nelson at bedside. On Abx. Objective Last 24 Hour Vital Signs Date Time Temp Pulse Resp B/P (MAP) Pulse Ox O2 Delivery O2 Flow Rate FiO2 02/07/19 09:00 Nasal Cannula 2.0 02/07/19 08:32 81 130/59 02/07/19 08:00 81 02/07/19 08:00 98.8 81 18 130/59 (82) 94 02/07/19 07:14 96 Nasal Cannula 2.0 28 02/07/19 04:00 75 02/07/19 04:00 97.6 75 18 128/66 (86) 95 02/07/19 00:00 76 02/07/19 00:00 98.0 76 18 127/65 (85) 97 02/06/19 21:28 76 115/56 02/06/19 21:00 Nasal Cannula 2.0 02/06/19 20:00 97.6 82 18 111/45 (67) 97 02/06/19 20:00 82 02/06/19 19:29 96 Nasal Cannula 2.0 28 02/06/19 16:54 98.1 02/06/19 16:00 81 02/06/19 16:00 98.1 78 21 128/60 (82) 97 02/06/19 12:00 98.1 75 21 119/60 (79) 97 02/06/19 12:00 69 Intake and Output 02/06/19 02/07/19 19:00 07:00 Intake Total 320 ml Output Total 800 ml 400 ml Balance -480 ml -400 ml Intake Oral 320 ml Output Urine Total 800 ml 400 ml # Voids 1 # Bowel Movements 1 Laboratory Tests Test 02/07/19 05:36 White Blood Count 14.5 K/UL (4.8-10.8) H Red Blood Count 3.89 M/UL (4.20-5.40) L Hemoglobin 11.2 G/DL (12.0-16.0) L Hematocrit 33.8 % (37.0-47.0) L Mean Corpuscular Volume 87 FL (80-99) Mean Corpuscular Hemoglobin 28.7 PG (27.0-31.0) Mean Corpuscular Hemoglobin Concent 33.1 G/DL (32.0-36.0) Red Cell Distribution Width 12.7 % (11.6-14.8) Platelet Count 270 K/UL (150-450) Mean Platelet Volume 6.5 FL (6.5-10.1) Neutrophils (%) (Auto) 76.6 % (45.0-75.0) H Lymphocytes (%) (Auto) 14.4 % (20.0-45.0) L Monocytes (%) (Auto) 5.3 % (1.0-10.0) Eosinophils (%) (Auto) 3.3 % (0.0-3.0) H Basophils (%) (Auto) 0.4 % (0.0-2.0) Sodium Level 141 MMOL/L (136-145) Potassium Level 3.7 MMOL/L (3.5-5.1) Chloride Level 101 MMOL/L (98-107) Carbon Dioxide Level 33 MMOL/L (21-32) H Anion Gap 7 mmol/L (5-15) Blood Urea Nitrogen 18 mg/dL (7-18) Creatinine 1.1 MG/DL (0.55-1.30) Estimat Glomerular Filtration Rate mL/min (>60) Glucose Level 103 MG/DL (74-106) Calcium Level 9.1 MG/DL (8.5-10.1) Microbiology Date/Time Source Procedure Growth Status 02/04/19 15:35 Blood Blood Culture - Preliminary NO GROWTH AFTER 48 HOURS Resulted 02/04/19 15:32 Blood Blood Culture - Preliminary NO GROWTH AFTER 48 HOURS Resulted Objective HEAD AND NECK: No JVD. LUNGS: Decreased breath sounds. CARDIOVASCULAR: Regular, S1 and S2 with no gallop or murmur. ABDOMEN: Soft. EXTREMITIES: Bilateral 2+ pitting edema.Left leg ulcer covered with dressings Bob Lowry MD Feb 07, 2019 11:38
--- NOTE | 2019-02-07 11:42 | Pulmonology Progress Note ---
Assessment/Plan Problems: (1) Acute on chronic diastolic congestive heart failure (2) Acute bronchitis (3) Cellulitis (4) Cardiomegaly (5) Mild pulmonary hypertension (6) Peripheral edema (7) Morbid obesity (8) History of hypertension Assessment/Plan wbc still high,unchaged no dyspnea ,on duoneb continue abx echo reviewed, EF of 55%, mild diastolic dysfunction with pulmonary hypertension on Lasix BID, watch bun/creatinine dvt prophylaxis pt agreed with NH placement. Subjective ROS Limited/Unobtainable: No Interval Events: no new complains Allergies: Coded Allergies: No Known Allergies (Unverified , 02/03/19) Objective Last 24 Hour Vital Signs Date Time Temp Pulse Resp B/P (MAP) Pulse Ox O2 Delivery O2 Flow Rate FiO2 02/07/19 09:00 Nasal Cannula 2.0 02/07/19 08:32 81 130/59 02/07/19 08:00 81 02/07/19 08:00 98.8 81 18 130/59 (82) 94 02/07/19 07:14 96 Nasal Cannula 2.0 28 02/07/19 04:00 75 02/07/19 04:00 97.6 75 18 128/66 (86) 95 02/07/19 00:00 76 02/07/19 00:00 98.0 76 18 127/65 (85) 97 02/06/19 21:28 76 115/56 02/06/19 21:00 Nasal Cannula 2.0 02/06/19 20:00 97.6 82 18 111/45 (67) 97 02/06/19 20:00 82 02/06/19 19:29 96 Nasal Cannula 2.0 28 02/06/19 16:54 98.1 02/06/19 16:00 81 02/06/19 16:00 98.1 78 21 128/60 (82) 97 02/06/19 12:00 98.1 75 21 119/60 (79) 97 02/06/19 12:00 69 Intake and Output 02/06/19 02/07/19 19:00 07:00 Intake Total 320 ml Output Total 800 ml 400 ml Balance -480 ml -400 ml Intake Oral 320 ml Output Urine Total 800 ml 400 ml # Voids 1 # Bowel Movements 1 Objective General Appearance: WD/WN, morbidly obese Lines, tubes and drains: peripheral HEENT: normocephalic, atraumatic Neck: non-tender, normal alignment Respiratory/Chest: chest wall non-tender, lungs clear Breasts: no masses Cardiovascular/Chest: normal peripheral pulses Abdomen: normal bowel sounds, non tender Genitourinary/Rectal: normal genital exam Extremities: normal range of motion, severe edema Skin Exam: other - hyperpigmentation in lower extremities Microbiology Date/Time Source Procedure Growth Status 02/04/19 15:35 Blood Blood Culture - Preliminary NO GROWTH AFTER 48 HOURS Resulted 02/04/19 15:32 Blood Blood Culture - Preliminary NO GROWTH AFTER 48 HOURS Resulted Laboratory Tests 02/07/19 05:36: White Blood Count 14.5H, Red Blood Count 3.89L, Hemoglobin 11.2L, Hematocrit 33.8L, Mean Corpuscular Volume 87, Mean Corpuscular Hemoglobin 28.7, Mean Corpuscular Hemoglobin Concent 33.1, Red Cell Distribution Width 12.7, Platelet Count 270, Mean Platelet Volume 6.5, Neutrophils (%) (Auto) 76.6H, Lymphocytes ( %) (Auto) 14.4L, Monocytes (%) (Auto) 5.3, Eosinophils (%) (Auto) 3.3H, Basophils (%) (Auto) 0.4, Sodium Level 141, Potassium Level 3.7, Chloride Level 101, Carbon Dioxide Level 33H, Anion Gap 7, Blood Urea Nitrogen 18, Creatinine 1.1, Estimat Glomerular Filtration Rate , Glucose Level 103, Calcium Level 9.1 Current Medications Medications (Trade) Dose Ordered Sig/Christel Route PRN Reason Start Time Stop Time Status Last Admin Dose Admin Acetaminophen (Tylenol) 650 mg Q6H PRN ORAL Mild Pain/Temp > 100.5 02/03/19 06:45 03/05/19 06:44 02/04/19 03:01 Acetaminophen/ Hydrocodone Bitart ([place] 5/325) 1 tab Q4H PRN ORAL Moderate Pain (Pain Scale 4-6) 02/04/19 11:15 02/11/19 11:14 02/06/19 16:24 Albuterol/ Ipratropium (Albuterol/ Ipratropium) 3 ml Q4H PRN HHN Shortness of Breath 02/04/19 11:15 02/09/19 11:14 Aspirin (Ecotrin) 81 mg DAILY ORAL 02/03/19 09:00 03/05/19 08:59 02/07/19 08:32 Carvedilol (Coreg) 12.5 mg EVERY 12 HOURS ORAL 02/03/19 09:00 03/05/19 08:59 02/07/19 08:32 Ceftriaxone Sodium 1 gm/ Dextrose 55 ml @ 110 mls/hr DAILY IVPB 02/03/19 09:00 02/10/19 08:59 02/07/19 08:32 Furosemide (Lasix) 40 mg EVERY 12 HOURS IV 02/04/19 21:00 03/05/19 08:59 02/07/19 08:32 Heparin Sodium (Porcine) (Heparin 5000 units/ml) 5,000 units EVERY 12 HOURS SUBQ 02/03/19 09:00 03/05/19 08:59 02/07/19 08:33 Ondansetron HCl (Zofran) 4 mg Q4H PRN IVP Nausea & Vomiting 02/03/19 06:45 03/05/19 06:44 Promethazine HCl/ Codeine (Phenergan with Codeine) 5 ml Q4H PRN ORAL For Cough 02/03/19 11:00 03/05/19 10:59 Vancomycin HCl (Vanco rx to dose) 1 ea DAILY PRN MISC Per rx protocol 02/03/19 06:45 03/05/19 06:44 Vancomycin HCl/ Dextrose 275 ml @ 137.5 mls/ hr Q24H IVPB 02/05/19 09:00 02/10/19 08:59 02/07/19 09:26 Mone Newton MD Feb 07, 2019 11:42
--- NOTE | 2019-02-07 11:47 | Infectious Diseases Prog Note ---
Assessment/Plan Assessment/Plan Abx: IV Vancomycin 02/03- Ceftriaxone 02/03- Assessment: SOB/wheezing- likely CHF exacerbation- -02/03 CXR: No acute process. Findings as noted -CXR (at [facility]): increased interstitial markings L LE edema- 2ry to Cellulitis -V. duplex no DVT GBS bacteremia (at [place])- suspect from cellulitis -02/02 Bcx 2/4 GBS; 02/04 Bcx NTD Afebrile Leukocytosis, increasing ALEXANDRA, SP CHF HTN s/p appendectomy morbid obesity Plan: -D/c empiric IV Vancomycin #5 -Continue Ceftriaxone #10/12 -ok to discharge on this regimen -f/u cx -Monitor CBC/CMP, temperatures -f/u Bcx x2, sp cx -wound care per hospital protocol Thank you for this consultation. Will continue to follow along with you. Subjective Allergies: Coded Allergies: No Known Allergies (Unverified , 02/03/19) Subjective afebrile leukocytosis Bcx NTD Objective Vital Signs Last 24 Hour Vital Signs Date Time Temp Pulse Resp B/P (MAP) Pulse Ox O2 Delivery O2 Flow Rate FiO2 02/07/19 09:00 Nasal Cannula 2.0 02/07/19 08:32 81 130/59 02/07/19 08:00 81 02/07/19 08:00 98.8 81 18 130/59 (82) 94 02/07/19 07:14 96 Nasal Cannula 2.0 28 02/07/19 04:00 75 02/07/19 04:00 97.6 75 18 128/66 (86) 95 02/07/19 00:00 76 02/07/19 00:00 98.0 76 18 127/65 (85) 97 02/06/19 21:28 76 115/56 02/06/19 21:00 Nasal Cannula 2.0 02/06/19 20:00 97.6 82 18 111/45 (67) 97 02/06/19 20:00 82 02/06/19 19:29 96 Nasal Cannula 2.0 28 02/06/19 16:54 98.1 02/06/19 16:00 81 02/06/19 16:00 98.1 78 21 128/60 (82) 97 02/06/19 12:00 98.1 75 21 119/60 (79) 97 02/06/19 12:00 69 Height (Feet): 5 Height (Inches): 2.00 Weight (Pounds): 229 Objective General Appearance: NAD HEENT: normocephalic, atraumatic, EOMI Respiratory/Chest: CTAB Cardiovascular: RRR, S1, S2 Abdomen: normal bowel sounds, non tender Microbiology Date/Time Source Procedure Growth Status 02/04/19 15:35 Blood Blood Culture - Preliminary NO GROWTH AFTER 48 HOURS Resulted 02/04/19 15:32 Blood Blood Culture - Preliminary NO GROWTH AFTER 48 HOURS Resulted Laboratory Tests Test 02/07/19 05:36 White Blood Count 14.5 K/UL (4.8-10.8) H Red Blood Count 3.89 M/UL (4.20-5.40) L Hemoglobin 11.2 G/DL (12.0-16.0) L Hematocrit 33.8 % (37.0-47.0) L Mean Corpuscular Volume 87 FL (80-99) Mean Corpuscular Hemoglobin 28.7 PG (27.0-31.0) Mean Corpuscular Hemoglobin Concent 33.1 G/DL (32.0-36.0) Red Cell Distribution Width 12.7 % (11.6-14.8) Platelet Count 270 K/UL (150-450) Mean Platelet Volume 6.5 FL (6.5-10.1) Neutrophils (%) (Auto) 76.6 % (45.0-75.0) H Lymphocytes (%) (Auto) 14.4 % (20.0-45.0) L Monocytes (%) (Auto) 5.3 % (1.0-10.0) Eosinophils (%) (Auto) 3.3 % (0.0-3.0) H Basophils (%) (Auto) 0.4 % (0.0-2.0) Sodium Level 141 MMOL/L (136-145) Potassium Level 3.7 MMOL/L (3.5-5.1) Chloride Level 101 MMOL/L (98-107) Carbon Dioxide Level 33 MMOL/L (21-32) H Anion Gap 7 mmol/L (5-15) Blood Urea Nitrogen 18 mg/dL (7-18) Creatinine 1.1 MG/DL (0.55-1.30) Estimat Glomerular Filtration Rate mL/min (>60) Glucose Level 103 MG/DL (74-106) Calcium Level 9.1 MG/DL (8.5-10.1) Current Medications Medications (Trade) Dose Ordered Sig/Christel Route PRN Reason Start Time Stop Time Status Last Admin Dose Admin Acetaminophen (Tylenol) 650 mg Q6H PRN ORAL Mild Pain/Temp > 100.5 02/03/19 06:45 03/05/19 06:44 02/04/19 03:01 Acetaminophen/ Hydrocodone Bitart ([place] 5/325) 1 tab Q4H PRN ORAL Moderate Pain (Pain Scale 4-6) 02/04/19 11:15 02/11/19 11:14 02/06/19 16:24 Albuterol/ Ipratropium (Albuterol/ Ipratropium) 3 ml Q4H PRN HHN Shortness of Breath 02/04/19 11:15 02/09/19 11:14 Aspirin (Ecotrin) 81 mg DAILY ORAL 02/03/19 09:00 03/05/19 08:59 02/07/19 08:32 Carvedilol (Coreg) 12.5 mg EVERY 12 HOURS ORAL 02/03/19 09:00 03/05/19 08:59 02/07/19 08:32 Ceftriaxone Sodium 1 gm/ Dextrose 55 ml @ 110 mls/hr DAILY IVPB 02/03/19 09:00 02/10/19 08:59 02/07/19 08:32 Furosemide (Lasix) 40 mg EVERY 12 HOURS IV 02/04/19 21:00 03/05/19 08:59 02/07/19 08:32 Heparin Sodium (Porcine) (Heparin 5000 units/ml) 5,000 units EVERY 12 HOURS SUBQ 02/03/19 09:00 03/05/19 08:59 02/07/19 08:33 Magnesium Oxide (Mag-Ox 400mg) 400 mg BID ORAL 02/07/19 18:00 03/09/19 17:59 Ondansetron HCl (Zofran) 4 mg Q4H PRN IVP Nausea & Vomiting 02/03/19 06:45 03/05/19 06:44 Promethazine HCl/ Codeine (Phenergan with Codeine) 5 ml Q4H PRN ORAL For Cough 02/03/19 11:00 03/05/19 10:59 Vancomycin HCl (Vanco rx to dose) 1 ea DAILY PRN MISC Per rx protocol 02/03/19 06:45 03/05/19 06:44 Vancomycin HCl/ Dextrose 275 ml @ 137.5 mls/ hr Q24H IVPB 02/05/19 09:00 02/10/19 08:59 02/07/19 09:26 Izabella Cortez M.D. Feb 07, 2019 11:47
[2019-02-07 12:00] VITALS: BP 121/54
--- NOTE | 2019-02-07 15:25 | NUR ---
*-* DISCHARGE PLANNING *-* PATIENT HAS BEEN REFERRED TO: [facility] P: [phone] F: [phone]
[2019-02-07 16:00] VITALS: BP 116/52
--- NOTE | 2019-02-07 16:06 | NUR ---
DISCHARGE PLANNING PATIENT HAS BEEN ACCEPTED TO [facility] M[facility] Powers AWAIT DISCHARGE ORDER Addendum: 02/07/19 at 1618 by MARTIN AVITIA CM SKILLED
--- NOTE | 2019-02-07 17:00 | NUR ---
NURSE NOTES: Report given to ISHAN Peter from [facility]. Patient transferred to room 5-A. ISHAN Peter made aware continue IV ceftriaxone 2g IV daily for 9 days. ETA at 1730. Addendum: 02/07/19 at 1933 by MELYSSA GALLO RN [facility] Tele : [phone]
[2019-02-07] MEDS ORDERED: ROCEPHIN2 GM/50 ML IV (17:43)
[2019-02-07] MEDS ORDERED: Magnesium Oxide 400mg tab ORAL SCH (18:00)
--- NOTE | 2019-02-07 18:30 | Internal Med Progress Note ---
Subjective Physician Name Tony Gaytan Attending Physician Mark Jones MD Current Medications Medications (Trade) Dose Ordered Sig/Christel Route PRN Reason Start Time Stop Time Status Last Admin Dose Admin Acetaminophen (Tylenol) 650 mg Q6H PRN ORAL Mild Pain/Temp > 100.5 02/03/19 06:45 03/05/19 06:44 02/04/19 03:01 Acetaminophen/ Hydrocodone Bitart ([place] 5/325) 1 tab Q4H PRN ORAL Moderate Pain (Pain Scale 4-6) 02/04/19 11:15 02/11/19 11:14 02/06/19 16:24 Albuterol/ Ipratropium (Albuterol/ Ipratropium) 3 ml Q4H PRN HHN Shortness of Breath 02/04/19 11:15 02/09/19 11:14 Aspirin (Ecotrin) 81 mg DAILY ORAL 02/03/19 09:00 03/05/19 08:59 02/07/19 08:32 Carvedilol (Coreg) 12.5 mg EVERY 12 HOURS ORAL 02/03/19 09:00 03/05/19 08:59 02/07/19 08:32 Ceftriaxone Sodium 1 gm/ Dextrose 55 ml @ 110 mls/hr DAILY IVPB 02/03/19 09:00 02/10/19 08:59 02/07/19 08:32 Furosemide (Lasix) 40 mg EVERY 12 HOURS IV 02/04/19 21:00 03/05/19 08:59 02/07/19 08:32 Heparin Sodium (Porcine) (Heparin 5000 units/ml) 5,000 units EVERY 12 HOURS SUBQ 02/03/19 09:00 03/05/19 08:59 02/07/19 08:33 Magnesium Oxide (Mag-Ox 400mg) 400 mg BID ORAL 02/07/19 18:00 03/09/19 17:59 02/07/19 18:13 Ondansetron HCl (Zofran) 4 mg Q4H PRN IVP Nausea & Vomiting 02/03/19 06:45 03/05/19 06:44 Promethazine HCl/ Codeine (Phenergan with Codeine) 5 ml Q4H PRN ORAL For Cough 02/03/19 11:00 03/05/19 10:59 Vancomycin HCl (Vanco rx to dose) 1 ea DAILY PRN MISC Per rx protocol 02/03/19 06:45 03/05/19 06:44 Vancomycin HCl/ Dextrose 275 ml @ 137.5 mls/ hr Q24H IVPB 02/05/19 09:00 02/10/19 08:59 02/07/19 09:26 Allergies: Coded Allergies: No Known Allergies (Unverified , 02/03/19) ROS Limited/Unobtainable: No Constitutional: Reports: no symptoms HEENT: Reports: no symptoms Cardiovascular: Reports: no symptoms Respiratory: Reports: no symptoms Gastrointestinal/Abdominal: Reports: no symptoms Genitourinary: Reports: no symptoms Neurologic/Psychiatric: Reports: no symptoms Subjective 83 YO F admitted with shortness of breath. Now cellulitis left leg and sepsis. Cover for Int Med-Dr Jones. Objective Last Vital Signs Date Time Temp Pulse Resp B/P (MAP) Pulse Ox O2 Delivery O2 Flow Rate FiO2 02/07/19 12:00 76 02/07/19 12:00 98.5 18 121/54 (76) 97 02/07/19 09:00 Nasal Cannula 2.0 02/07/19 07:14 28 Laboratory Tests Test 02/07/19 05:36 White Blood Count 14.5 K/UL (4.8-10.8) H Red Blood Count 3.89 M/UL (4.20-5.40) L Hemoglobin 11.2 G/DL (12.0-16.0) L Hematocrit 33.8 % (37.0-47.0) L Mean Corpuscular Volume 87 FL (80-99) Mean Corpuscular Hemoglobin 28.7 PG (27.0-31.0) Mean Corpuscular Hemoglobin Concent 33.1 G/DL (32.0-36.0) Red Cell Distribution Width 12.7 % (11.6-14.8) Platelet Count 270 K/UL (150-450) Mean Platelet Volume 6.5 FL (6.5-10.1) Neutrophils (%) (Auto) 76.6 % (45.0-75.0) H Lymphocytes (%) (Auto) 14.4 % (20.0-45.0) L Monocytes (%) (Auto) 5.3 % (1.0-10.0) Eosinophils (%) (Auto) 3.3 % (0.0-3.0) H Basophils (%) (Auto) 0.4 % (0.0-2.0) Sodium Level 141 MMOL/L (136-145) Potassium Level 3.7 MMOL/L (3.5-5.1) Chloride Level 101 MMOL/L (98-107) Carbon Dioxide Level 33 MMOL/L (21-32) H Anion Gap 7 mmol/L (5-15) Blood Urea Nitrogen 18 mg/dL (7-18) Creatinine 1.1 MG/DL (0.55-1.30) Estimat Glomerular Filtration Rate mL/min (>60) Glucose Level 103 MG/DL (74-106) Calcium Level 9.1 MG/DL (8.5-10.1) Intake and Output 02/06/19 02/07/19 19:00 07:00 Intake Total 320 ml Output Total 800 ml 400 ml Balance -480 ml -400 ml Intake Oral 320 ml Output Urine Total 800 ml 400 ml # Voids 1 # Bowel Movements 1 Objective PHYSICAL EXAMINATION: GENERAL: The patient is a well-developed and well-nourished female, in no apparent distress. HEENT: Eyes, pupils are equal and responsive to light and accommodation. Extraocular movements are intact. NECK: Supple without lymphadenopathy. CHEST: Lungs are clear to auscultation bilaterally without wheezes or rales. CARDIOVASCULAR: Regular rhythm and rate. S1 and S2 are normal without murmurs, rubs, or gallops. ABDOMEN: Soft, nontender, and nondistended. Positive bowel sounds. No evidence of hepatosplenomegaly. Currently, no rebound or guarding noted. EXTREMITIES: Negative for clubbing, cyanosis, or edema. NEUROLOGICAL: Cranial nerves II through XII are grossly intact without focal deficits. Motor strength is 5/5 bilaterally. Deep tendon reflexes are 2+ plantar. Assessment/Plan Assessment/Plan ASSESSMENT: This is an 83-year-old female. 1. Shortness of breath. 2. Wheezing. 3. Edema of the bilateral lower extremities. 4. Diastolic Congestive heart failure-acute on chronic 5. Hypertension. 6. Cellulitis left leg 7. Bacteremia-Group B Strep TREATMENT: 1. Shortness of breath/wheezing/congestive heart failure. Cardiology consultation has been obtained with Dr. Lowry. Echocardiogram LVEF= 55%. We will follow recommendation of Cardiology. 2. Hypertension. Continue chlorthalidone, losartan, and carvedilol as above. 3. Continue Vanco and ceftriaxone per ID-Tony Uribe MD Feb 07, 2019 18:30
--- NOTE | 2019-02-07 19:02 | NUR ---
NURSE NOTES: Patient discharged to [facility] per Dr. Newton. Patient discharged with all belongings, patient's ID band removed and placed in shredder. petroleum sampler returned to cell phone repair technician. Patient transferred by BLS in a stable condition. Family member made aware.
--- NOTE | 2019-02-08 10:42 | Discharge Summary ---
Discharge Summary Discharge Summary _ DATE OF ADMISSION: 02/02/2019 DATE OF DISCHARGE: 02/07/2019 DISCHARGED BY: Dr. Jones REASON FOR ADMISSION: 83 years old female with past medical history of congestive heart failure, hypertension, peripheral edema, morbid obesity, initially was taken by paramedics to [facility] due to shortness of breath. Chest x-ray at [place] revealed increased interstitial markings. Clinical exam revealed left lower extremity edema and signs of cellulitis. Laboratory workup revealed leukocytosis, renal insufficiency and elevated pro BNP. Patient subsequently was transferred to [facility] for insurance purposes. CONSULTANTS: division commander Dr. Ragland hospitalist Dr. Newton ID specialist Dr. Cortez plastic surgeon Dr. Dove [facility] COURSE: Patient admitted to telemetry floor. Sawdust Machine Operator followed. Echocardiogram revealed preserved ejection fraction of 55% with no evidence of left ventricular hypertrophy. No evidence of wall motion abnormality. Grade 1 diastolic dysfunction. Right ventricular systolic pressure of 38 consistent with a mild pulmonary hypertension. Chest x-ray demonstrated borderline cardiomegaly. Venous duplex bilateral lower extremity revealed no evidence of acute DVT. Supplemental oxygen provided as needed to keep pulse oximetry above 92%. Pulmonary toilet with via handheld nebulizing therapy with bronchodilator provided. Patient started on IV Lasix with close monitoring of volumes and cardiorenal parameters. DVT prophylaxis provided. Antiplatelet therapy with aspirin continued. ProBNP trended down from 2535 to 1127. Infectious disease specialist followed. Antibiotic provided as per infectious disease specialist recommendation. Left lower extremity edema was secondary to cellulitis. Patient had strep group B bacteremia at [place], suspected from cellulitis. Repeated blood cultures were negative. Patient remained afebrile , still with leukocytosis. Sputum culture was negative. Stool for C. difficile was negative. Patient completed vancomycin for 5 days. Infectious disease specialist recommended continue ceftriaxone to complete the treatment for total of 2 weeks at the facility. Renal parameters and electrolytes were closely monitored. Electrolytes corrected as needed. BUN from 40 down to 18 and creatinine from 1.5 down to 1.1. Acute kidney injury resolved. Plastic surgeon seen and evaluated patient for present on admission un- stageable ulcer of right medial buttock. Wound care provided as recommended as per plastic surgeon to loosen the slough and determine more accurate staging. Moisture was kept under control, and patient was offloaded every 2 hours. No need for surgical intervention at this time. Continue wound care at the facility. Supportive care provided. Bowel regimen instituted. Patient clinically stabilized and was ready for transfer back to nursing home facility for continuation of care. FINAL DIAGNOSES: Sepsis with group B strep bacteremia at [place], likely due to cellulitis Cellulitis left lower extremity Acute on chronic diastolic congestive heart failure Acute kidney injury-resolved Hypertension Morbid obesity Right medial buttock un-stageable pressure ulcer, present on admission DISCHARGE MEDICATIONS: See Medication Reconciliation list. DISCHARGE INSTRUCTIONS: Patient was discharged to the nursing home facility. Follow up with medical doctor at the facility. I have been assigned to dictate discharge summary for this account. I was not involved in the patient's management. Tatyana Lucas NP Feb 08, 2019 10:42
--- NOTE | 2019-02-09 15:22 | Diagnostic Imaging Report ---
APPROVED REPORT CPT Code: 18829 Present Symptoms Comments: EDEMA BILATERAL: Imaging reveals a patent deep venous system bilaterally. There is no evidence of thrombus within the common femoral, superficial femoral, popliteal or tibial segments. The greater saphenous veins are within normal limits. Doppler indicates normal spontaneous flow within these segments.
== END 2019-02-07 19:02 | DRG 871 ==
LOC: 2E 22:42
DX: A40.1 Sepsis due to streptococcus, group B (principal); I50.33 Acute on chronic diastolic (congestive) heart failure; L03.116 Cellulitis of left lower limb; N17.9 Acute kidney failure, unspecified; I11.0 Hypertensive heart disease with heart failure; E66.01 Morbid (severe) obesity due to excess calories; J20.9 Acute bronchitis, unspecified; I10 Essential (primary) hypertension; L89.310 Pressure ulcer of right buttock, unstageable; Z79.82 Long term (current) use of aspirin
CPT/HCPCS: 36415; 71045; 80048; 80053; 80202; 81001; 82270; 82378; 82550; 82607; 82746; 83540; 83550; 83615; 83735; 83880; 84100; 84133; 84300; 84484; 84550; 85007; 85025; 85044; 85060; 85610; 85651; 85730; 86140; 87040; 87070; 87205; 87324; 89050; 93306; 93970; J8499

== ENCOUNTER 2019-07-26 15:45 | Inpatient (IN) | payer MEDICARE, OTHER ==
[~2019-07-26] VITALS: Ht 157.5 cm; Wt 95.3 kg
[~2019-07-26 15:45] MED LIST: ADVIL200 M2 ORAL; ASPIR 8181 MG ORAL; CALCIUM 600 +1 EAC2 PO; CARVEDILOL25 MG ORAL; CHLORTHALIDONE25 MG ORAL; FUROSEMIDE20 M1 ORAL; LOSARTAN POTASS50 MG ORAL; ROCEPHIN2 GM/50 ML IV
--- NOTE | 2019-07-26 19:50 | NUR ---
NURSE NOTES: Admitted patient direct admit from [facility], awake, alert, verbal, essentially stable vital signs, on bed rest. Physical assessment done, called attending MD for admitting orders.
[2019-07-26 20:00] VITALS: BP 154/71
[2019-07-26] MEDS ORDERED: TRAMADOL HCL100 M2 ORAL (20:21)
[2019-07-26] MEDS ORDERED: ACETAMINOPHEN500 MG ORAL (20:21)
[2019-07-26] MEDS ORDERED: LORazepam 1mg tab ORAL PRN (22:00)
[2019-07-26] MEDS ORDERED: Acetaminophen 500mg (ES) tab ORAL PRN (22:00)
[2019-07-26] MEDS: Vancomycin 1.25gm/NS Premix 275 ML IVPB SCH (23:29)
[2019-07-27 00:09] VITALS: BP 154/70
[2019-07-27 04:00] VITALS: BP 147/56
[2019-07-27 07:14] LABS: ANION GAP 8 mmol/L (5-15); BLOOD UREA NITROGEN 10 mg/dL (7-18); CALCIUM 9.4 MG/DL (8.5-10.1); CARBON DIOXIDE 30 MMOL/L (21-32); CHLORIDE 108 MMOL/L (98-107); CREATININE 0.9 MG/DL (0.55-1.30); POTASSIUM 3.6 MMOL/L (3.5-5.1); SODIUM 145 MMOL/L (136-145)
--- NOTE | 2019-07-27 07:27 | NUR ---
HAND-OFF: Report given to Shaniqua Villa RN.
[2019-07-27 07:30] LABS: BASOPHILS % (AUTO) 0.6 % (0.0-2.0); EOSINOPHILS % (AUTO) 3.9 % (0.0-3.0); HEMATOCRIT 29.7 % (37.0-47.0); HEMOGLOBIN 10.1 G/DL (12.0-16.0); LYMPHOCYTES % (AUTO) 15.1 % (20.0-45.0); MEAN CORPUSCULAR VOLUME 86 FL (80-99); MONOCYTES % (AUTO) 6.9 % (1.0-10.0); NEUTROPHILS % (AUTO) 73.5 % (45.0-75.0); PLATELET COUNT 196 K/UL (150-450); RED BLOOD COUNT 3.46 M/UL (4.20-5.40); RED CELL DISTRIBUTION WIDTH 12.6 % (11.6-14.8); WHITE BLOOD COUNT 8.9 K/UL (4.8-10.8)
--- NOTE | 2019-07-27 07:30 | NUR ---
NURSE NOTES: Received report from Lilly OLMSTEAD. Patient is awake and oriented, no acute distress noted, IV intact, patent. Bilateral legs swollen, elevated for comfort. Needs met at this time. Call light within reach.
[2019-07-27 08:00] VITALS: BP 145/57
[2019-07-27] MEDS ORDERED: Heparin 5000 units/ml inj SUBQ SCH (09:00)
[2019-07-27] MEDS: Carvedilol 25mg Tab ORAL SCH ×2 (09:02→18:25)
[2019-07-27] MEDS: Losartan 50mg tab ORAL SCH (09:02)
[2019-07-27] MEDS: Aspirin EC 81mg tab ORAL SCH (09:02)
[2019-07-27] MEDS: traMADol 50mg tab ORAL PRN ×2 (11:36→20:36)
--- NOTE | 2019-07-27 12:03 | History & Physical ---
History and Physical History & Physicial Dictated for Int Med-Dr Jones no. [id number]. Tony Gaytan MD Jul 27, 2019 12:03
--- NOTE | 2019-07-27 13:29 | Consultation ---
History of Present Illness Present Illness Allergies: Coded Allergies: No Known Allergies (Unverified , 02/03/19) Medication History Scheduled Acetaminophen* (Tylenol Extra Strength*), 1,000 MG ORAL Q6H, (Reported) Aspirin* (Aspir 81*), 81 MG ORAL DAILY, (Reported) Calcium Carbonate/Vitamin D3 (Calcium 600 + Vit D 200 Tablet), 1 EACH PO BID, ( Reported) Carvedilol* (Carvedilol*), 25 MG ORAL BID, (Reported) Ceftriaxone Sod (Ceftriaxone 2 gm-D5w Bag), 2 GM IV DAILY, (Reported) Chlorthalidone* (Chlorthalidone*), 25 MG ORAL DAILY, (Reported) Furosemide* (Lasix*), 20 MG ORAL BID, (Reported) Losartan Potassium* (Losartan Potassium*), 50 MG ORAL DAILY, (Reported) Tramadol Hcl (Tramadol Hcl), 50 MG ORAL EVERY 4 HOURS, (Reported) Scheduled PRN Ibuprofen* (Advil*), 200 MG ORAL Q6H PRN for Pain Scale (6-10), (Reported) Patient History Healthcare decision maker Resuscitation status Full Code Advanced Directive on File No Physical Exam Last 24 Hour Vital Signs Date Time Temp Pulse Resp B/P (MAP) Pulse Ox O2 Delivery O2 Flow Rate FiO2 07/27/19 09:02 145/57 07/27/19 09:02 80 145/57 07/27/19 08:00 98.2 80 18 145/57 (86) 97 07/27/19 04:00 97.5 79 19 147/56 (86) 97 07/27/19 00:09 97.0 87 20 154/70 (98) 97 07/26/19 23:05 97.9 07/26/19 21:00 Room Air 07/26/19 20:15 Room Air 07/26/19 20:00 97.9 84 21 154/71 (98) 95 Intake and Output 07/26/19 07/27/19 19:00 07:00 Intake Total 275 ml Output Total 0 ml Balance 275 ml IV Total 275 ml Output Urine Total 0 ml Laboratory Tests Test 07/27/19 05:35 White Blood Count 8.9 K/UL (4.8-10.8) Red Blood Count 3.46 M/UL (4.20-5.40) L Hemoglobin 10.1 G/DL (12.0-16.0) L Hematocrit 29.7 % (37.0-47.0) L Mean Corpuscular Volume 86 FL (80-99) Mean Corpuscular Hemoglobin 29.2 PG (27.0-31.0) Mean Corpuscular Hemoglobin Concent 34.1 G/DL (32.0-36.0) Red Cell Distribution Width 12.6 % (11.6-14.8) Platelet Count 196 K/UL (150-450) Mean Platelet Volume 6.4 FL (6.5-10.1) L Neutrophils (%) (Auto) 73.5 % (45.0-75.0) Lymphocytes (%) (Auto) 15.1 % (20.0-45.0) L Monocytes (%) (Auto) 6.9 % (1.0-10.0) Eosinophils (%) (Auto) 3.9 % (0.0-3.0) H Basophils (%) (Auto) 0.6 % (0.0-2.0) Sodium Level 145 MMOL/L (136-145) Potassium Level 3.6 MMOL/L (3.5-5.1) Chloride Level 108 MMOL/L (98-107) H Carbon Dioxide Level 30 MMOL/L (21-32) Anion Gap 8 mmol/L (5-15) Blood Urea Nitrogen 10 mg/dL (7-18) Creatinine 0.9 MG/DL (0.55-1.30) Estimat Glomerular Filtration Rate > 60 mL/min (>60) Glucose Level 96 MG/DL (74-106) Calcium Level 9.4 MG/DL (8.5-10.1) Height (Feet): 5 Height (Inches): 2.00 Weight (Pounds): 227 Medications Current Medications Medications (Trade) Dose Ordered Sig/Christel Route PRN Reason Start Time Stop Time Status Last Admin Dose Admin Acetaminophen (Tylenol) 1,000 mg Q6H PRN ORAL Mild Pain/Temp > 100.5 07/26/19 22:00 08/25/19 21:59 07/26/19 22:33 Aspirin (Ecotrin) 81 mg DAILY ORAL 07/27/19 09:00 08/26/19 08:59 07/27/19 09:02 Carvedilol (Coreg) 25 mg BID ORAL 07/27/19 09:00 08/26/19 08:59 07/27/19 09:02 Ceftriaxone Sodium 1 gm/ Dextrose 55 ml @ 110 mls/hr Q24H IVPB 07/27/19 15:00 08/03/19 14:59 Furosemide (Lasix) 40 mg DAILY IV 07/27/19 09:00 08/26/19 08:59 07/27/19 09:02 Heparin Sodium (Porcine) (Heparin 5000 units/ml) 5,000 units EVERY 12 HOURS SUBQ 07/27/19 09:00 08/26/19 08:59 07/27/19 09:03 Lorazepam (Ativan) 1 mg Q6H PRN ORAL For Anxiety 07/26/19 22:00 08/02/19 21:59 Losartan Potassium (Cozaar) 50 mg DAILY ORAL 07/27/19 09:00 08/26/19 08:59 07/27/19 09:02 Tramadol HCl (Ultram) 50 mg Q6H PRN ORAL Severe Pain (Pain Scale 7-10) 07/26/19 22:00 08/02/19 21:59 07/27/19 11:36 Vancomycin HCl (Vanco rx to dose) 1 ea DAILY PRN MISC Per rx protocol 07/26/19 22:00 08/25/19 21:59 Vancomycin/Sodium Chloride 275 ml @ 184 mls/hr Q24H IVPB 07/27/19 00:00 08/01/19 00:00 07/26/19 23:29 Assessment/Plan Problem List: (1) Cellulitis ICD Codes: L03.90 - Cellulitis, unspecified SNOMED: 313585714 (2) Severe anemia ICD Codes: D64.9 - Anemia, unspecified SNOMED: 993685341 (3) Peripheral edema ICD Codes: R60.9 - Edema, unspecified SNOMED: 154533412 (4) Elephantiasis ICD Codes: I89.0 - Lymphedema, not elsewhere classified SNOMED: 038477837 (5) Mild pulmonary hypertension ICD Codes: I27.20 - Pulmonary hypertension, unspecified SNOMED: 49815597 (6) Morbid obesity ICD Codes: E66.01 - Morbid (severe) obesity due to excess calories SNOMED: 903185120 (7) History of hypertension ICD Codes: Z86.79 - Personal history of other diseases of the circulatory system SNOMED: 806632589 Assessment/Plan: wound care iv abx Podiatry to see monitor BP symptomatic treatment anemia w/u including stool for OB and iron studies. check electrolytes dvt prophylaxis. Mone Newton MD Jul 27, 2019 13:29
--- NOTE | 2019-07-27 15:15 | History and Physical Report ---
DATE OF ADMISSION: 07/26/2019 CHIEF COMPLAINT: The patient is an 84-year-old female, who presents with a chief complaint of bilateral leg pain and swelling. HISTORY OF PRESENT ILLNESS: The patient was admitted to [facility] in January 2019, for bilateral leg swelling. The patient was diagnosed with chronic lymphedema of bilateral lower extremities. The patient states her legs have become increasingly swollen over the last two weeks. The patient has increasing pain in the bilateral knees. Pain radiates to the bilateral calves. The patient states the pain is bed. She has been unable to walk for last two weeks. The patient was initially transported to [facility] [place] room via EMS. The patient is transferred to [facility] for insurance purposes. The patient is admitted with bilateral lower extremity edema and bilateral lower extremity cellulitis. REVIEW OF SYSTEMS: CONSTITUTIONAL: The patient denies weight loss or gain. The patient denies fevers or chills. HEENT: The patient denies ear or throat pain. The patient denies headache. CARDIOVASCULAR: The patient denies palpitations or chest pain. CHEST: The patient denies wheeze or shortness of breath. ABDOMEN: The patient denies nausea, vomiting, diarrhea, constipation. GENITOURINARY: The patient denies dysuria or increased frequency of urination. NEUROMUSCULAR: The patient denies seizures or generalized weakness. The patient has 2+ pitting edema in bilateral lower extremities, left greater than right. PAST MEDICAL HISTORY: Significant for hypertension. PAST SURGICAL HISTORY: Significant for appendectomy. CURRENT MEDICATIONS: 1. Ibuprofen 200 mg one tablet p.o. q.6 hours. p.r.n. 2. Aspirin 81 mg p.o. daily. 3. Cozaar 50 mg p.o. daily. 4. Carvedilol 25 mg p.o. twice daily. 5. Tramadol 50 mg one tablet p.o. q.6 hours. p.r.n. ALLERGIES: No known drug allergies. SOCIAL HISTORY: The patient is single and lives alone. The patient denies tobacco or alcohol use. PHYSICAL EXAMINATION: VITAL SIGNS: Temperature 98.1, respirations 18, pulse 81, blood pressure, 162/61. GENERAL: The patient is a well-developed, well-nourished female, in no apparent distress. HEENT: Eyes, pupils equal and responsive to light and accommodation. Extraocular movements are intact. NECK: Supple without lymphadenopathy. CHEST: Lungs are clear to auscultation bilaterally without wheezes or rales. CARDIOVASCULAR: Regular rhythm and rate. S1, S2 normal without murmurs, rubs, or gallops. ABDOMEN: Soft, nontender, and nondistended. Positive bowel sounds. No evidence of hepatosplenomegaly. Currently, no rebound or guarding. EXTREMITIES: A 2+ pitting edema from the ankles to the knees bilaterally with erythema of the left anterior calf from the ankle to the knee, left greater than right. LABORATORY STUDIES: WBC 8.7, hemoglobin 10.5, hematocrit 33.3, platelets . Sodium 144, potassium 4.7, chloride 109, CO2 25, BUN 10, creatinine 0.95, glucose 105. X-ray of the bilateral knees failed to demonstrate acute fracture. ASSESSMENT: This is an 84-year-old female: 1. Cellulitis of bilateral lower extremities. 2. Lymphedema bilateral lower extremities. 3. Bilateral leg pain. 4. Hypertension. TREATMENT: 1. Cellulitis of the bilateral lower extremities. The patient has been started empirically on intravenous vancomycin and ceftriaxone. An Infectious Disease consultation has been obtained with Dr. Joel. We will follow recommendations of Infectious Disease. 2. Hypertension. Continue Cozaar and Coreg as above. Tony Gaytan M.D. DR: RADHA JOB#: [id number] CC:
--- NOTE | 2019-07-27 15:24 | Diagnostic Imaging Report ---
Indication:Leg pain and swelling Technique: Grayscale and duplex Doppler imaging of the veins in both lower extremities performed in real time utilizing compression and augmentation. Comparison: None Findings: Duplex Doppler interrogation of the veins in both lower extremity is performed from the common femoral vein to the popliteal vein. Left side is abnormal. There is thrombus within the left common femoral vein and superficial femoral vein. The popliteal vein is patent. Right leg is normal. Normal venous compressibility demonstrated throughout. No thrombus identified. Waveform analysis shows good respiratory phasicity and augmentation. IMPRESSION: Acute DVT in the left common femoral vein and superficial femoral vein
--- NOTE | 2019-07-27 15:39 | NUR ---
CHARGE NURSE NOTE: Pt has a Left femoral to superf. femoral - Acute DVT. was called, message left.
[2019-07-27] MEDS: cefTRIAXone 1 GM in D5W 55 ML IVPB SCH (15:44)
[2019-07-27 16:00] VITALS: BP 144/66
--- NOTE | 2019-07-27 16:41 | NUR ---
CASE MANAGEMENT:INITIAL REVIEW 84 YR OLD FEMALE TRANSFERRED FROM [facility];BLE EDEMA SI;BLE CELLULITIS. BLE LYMPHEDEMA. BLE PAIN. HTN. 97.0 87 20 154/70 97% ON RA H/H 10.1/29.7 CL 108 IS;VANCO IV TRAMADOL PO ADMITTED TO MED SURG MED SURG STATUS DCP;FROM HOME
[2019-07-27] MEDS: Xarelto 15mg tab ORAL SCH (18:25)
--- NOTE | 2019-07-27 19:21 | NUR ---
HAND-OFF: Report given to Lilly OLMSTEAD.
--- NOTE | 2019-07-27 19:48 | NUR ---
NURSE NOTES: Received patient awake, alert, verbal, resting in bed comfortably without complaints, visitor at bedside.
[2019-07-27 20:06] VITALS: BP 132/60
--- NOTE | 2019-07-27 23:03 | NUR ---
HAND-OFF: Report given to Zenia Oropeza RN.
[2019-07-28] VITALS: BP 122/71
[2019-07-28] MEDS: Vancomycin 1.25gm/NS Premix 275 ML IVPB SCH ×2 (00:29→23:42)
[2019-07-28 04:00] VITALS: BP 147/73
[2019-07-28 05:42] LABS: BASOPHILS % (AUTO) 0.6 % (0.0-2.0); EOSINOPHILS % (AUTO) 4.5 % (0.0-3.0); HEMATOCRIT 29.8 % (37.0-47.0); LYMPHOCYTES % (AUTO) 17.3 % (20.0-45.0); MEAN CORPUSCULAR VOLUME 85 FL (80-99); MONOCYTES % (AUTO) 7.3 % (1.0-10.0); NEUTROPHILS % (AUTO) 70.3 % (45.0-75.0); PLATELET COUNT 191 K/UL (150-450); RED CELL DISTRIBUTION WIDTH 12.8 % (11.6-14.8); WHITE BLOOD COUNT 8.7 K/UL (4.8-10.8)
[2019-07-28 05:44] LABS: INR 1.2 (0.9-1.1)
[2019-07-28 05:56] LABS: ANION GAP 7 mmol/L (5-15); BLOOD UREA NITROGEN 13 mg/dL (7-18); CALCIUM 8.9 MG/DL (8.5-10.1); CARBON DIOXIDE 31 MMOL/L (21-32); CHLORIDE 107 MMOL/L (98-107); POTASSIUM 3.5 MMOL/L (3.5-5.1); SODIUM 145 MMOL/L (136-145)
[2019-07-28 05:59] LABS: % IRON SATURATION 17 % (15-50); IRON 33 ug/dL (50-175); TOTAL IRON BINDING CAPACITY 200 ug/dL (250-450)
[2019-07-28] MEDS: traMADol 50mg tab ORAL PRN (06:25)
[2019-07-28 06:52] LABS: LACTATE DEHYDROGENASE 147 U/L (81-234)
--- NOTE | 2019-07-28 07:50 | NUR ---
HAND-OFF: Report given to ISHAN ERIC.
[2019-07-28 08:00] VITALS: BP 136/66
--- NOTE | 2019-07-28 08:05 | NUR ---
NURSE NOTES: patient in bed, and awake. respiration is even and unlabored. Denies any pain and discomfort on BLE. encouraged patient to elevate BLE due to edema. patient is compliant. No acute distress noted on patient at this time. call light is within reach. will continue to follow plan of care.
--- NOTE | 2019-07-28 08:45 | NUR ---
NURSE NOTES: seen by Joaquin Yost for both lower legs cellulitis, edema, bilat heels. order of elevate both heels with pillow. prevalon boots but not using boots in the hospital anymore. order noted and carried out.
[2019-07-28] MEDS: Carvedilol 25mg Tab ORAL SCH ×2 (08:53→18:09)
[2019-07-28] MEDS: Xarelto 15mg tab ORAL SCH ×2 (08:54→18:09)
[2019-07-28] MEDS: Losartan 50mg tab ORAL SCH (08:54)
[2019-07-28] MEDS: Aspirin EC 81mg tab ORAL SCH (08:57)
--- NOTE | 2019-07-28 09:15 | Consultation ---
History of Present Illness General Date patient seen: Jul 28, 2019 Time patient seen: 09:00 Referring physician: Dr. Newton Reason for Consultation: B/L L/E edema and heel DTI Present Illness HPI Pt seen bedside for B/L L/E edema and heel DTI. Pt resting at bedside, denies any open wounds. Pt relates no acute SOI. Relates moderate pain to B/L Heel. Allergies: Coded Allergies: No Known Allergies (Unverified , 02/03/19) Medication History Scheduled Acetaminophen* (Tylenol Extra Strength*), 1,000 MG ORAL Q6H, (Reported) Aspirin* (Aspir 81*), 81 MG ORAL DAILY, (Reported) Calcium Carbonate/Vitamin D3 (Calcium 600 + Vit D 200 Tablet), 1 EACH PO BID, ( Reported) Carvedilol* (Carvedilol*), 25 MG ORAL BID, (Reported) Ceftriaxone Sod (Ceftriaxone 2 gm-D5w Bag), 2 GM IV DAILY, (Reported) Chlorthalidone* (Chlorthalidone*), 25 MG ORAL DAILY, (Reported) Furosemide* (Lasix*), 20 MG ORAL BID, (Reported) Losartan Potassium* (Losartan Potassium*), 50 MG ORAL DAILY, (Reported) Tramadol Hcl (Tramadol Hcl), 50 MG ORAL EVERY 4 HOURS, (Reported) Scheduled PRN Ibuprofen* (Advil*), 200 MG ORAL Q6H PRN for Pain Scale (6-10), (Reported) Patient History Healthcare decision maker Resuscitation status Full Code Advanced Directive on File No Physical Exam Physical Exam Narrative Focused B/L L/E Exam: Derm: B/L LE: Pitting edema noted distal to tibial tuberosity . Increased hyperpigmentation Ant tibia. Plantar heel blanchable , no open wounds noted. (+ ) POP Vasc: 1/4 dp/pt pulses, PRE SCHOOL MANAGER < 3 seconds Neuro: SILT intact MSK: MS/ROM deferred secondary to pain. Last 24 Hour Vital Signs Date Time Temp Pulse Resp B/P (MAP) Pulse Ox O2 Delivery O2 Flow Rate FiO2 07/28/19 08:54 136/66 07/28/19 08:53 87 136/66 07/28/19 08:00 97.9 87 19 136/66 (89) 94 07/28/19 04:00 98.2 82 18 147/73 (97) 95 07/28/19 00:00 98.1 84 18 122/71 (88) 93 07/27/19 21:10 97.9 07/27/19 20:15 Room Air 07/27/19 20:06 97.9 79 18 132/60 (84) 94 07/27/19 18:25 80 144/66 07/27/19 16:00 97.9 18 144/66 (92) 97 Intake and Output 07/27/19 07/28/19 19:00 07:00 Intake Total 480 ml 2026 ml Output Total 1800 ml 700 ml Balance -1320 ml 1326 ml Intake Oral 480 ml IV Total 2026 ml Output Urine Total 1800 ml 700 ml # Voids 2 # Bowel Movements 1 Laboratory Tests Test 07/28/19 04:42 White Blood Count 8.7 K/UL (4.8-10.8) Red Blood Count 3.50 M/UL (4.20-5.40) L Hemoglobin 10.0 G/DL (12.0-16.0) L Hematocrit 29.8 % (37.0-47.0) L Mean Corpuscular Volume 85 FL (80-99) Mean Corpuscular Hemoglobin 28.6 PG (27.0-31.0) Mean Corpuscular Hemoglobin Concent 33.5 G/DL (32.0-36.0) Red Cell Distribution Width 12.8 % (11.6-14.8) Platelet Count 191 K/UL (150-450) Mean Platelet Volume 6.4 FL (6.5-10.1) L Neutrophils (%) (Auto) 70.3 % (45.0-75.0) Lymphocytes (%) (Auto) 17.3 % (20.0-45.0) L Monocytes (%) (Auto) 7.3 % (1.0-10.0) Eosinophils (%) (Auto) 4.5 % (0.0-3.0) H Basophils (%) (Auto) 0.6 % (0.0-2.0) Neutrophils % (Manual) Pending Lymphocytes % (Manual) Pending Platelet Estimate Pending Platelet Morphology Pending Erythrocyte Sedimentation Rate Pending Reticulocyte Count Pending Prothrombin Time 12.5 SEC (9.30-11.50) H Prothromb Time International Ratio 1.2 (0.9-1.1) H Activated Partial Thromboplast Time 39 SEC (23-33) H Sodium Level 145 MMOL/L (136-145) Potassium Level 3.5 MMOL/L (3.5-5.1) Chloride Level 107 MMOL/L (98-107) Carbon Dioxide Level 31 MMOL/L (21-32) Anion Gap 7 mmol/L (5-15) Blood Urea Nitrogen 13 mg/dL (7-18) Creatinine 1.0 MG/DL (0.55-1.30) Estimat Glomerular Filtration Rate > 60 mL/min (>60) Glucose Level 105 MG/DL (74-106) Calcium Level 8.9 MG/DL (8.5-10.1) Iron Level 33 ug/dL (50-175) L Total Iron Binding Capacity 200 ug/dL (250-450) L Percent Iron Saturation 17 % (15-50) Unsaturated Iron Binding 167 ug/dL (112-346) Lactate Dehydrogenase 147 U/L (81-234) Pro-B-Type Natriuretic Peptide 684 pg/mL (0-125) H Carcinoembryonic Antigen Pending Vitamin B12 Level 279 PG/ML (193-986) Folate 6.7 NG/ML (8.6-58.9) L Height (Feet): 5 Height (Inches): 2.00 Weight (Pounds): 227 Medications Current Medications Medications (Trade) Dose Ordered Sig/Christel Route PRN Reason Start Time Stop Time Status Last Admin Dose Admin Acetaminophen (Tylenol) 1,000 mg Q6H PRN ORAL Mild Pain/Temp > 100.5 07/26/19 22:00 08/25/19 21:59 07/26/19 22:33 Aspirin (Ecotrin) 81 mg DAILY ORAL 07/27/19 09:00 08/26/19 08:59 07/28/19 08:57 Carvedilol (Coreg) 25 mg BID ORAL 07/27/19 09:00 08/26/19 08:59 07/28/19 08:53 Ceftriaxone Sodium 1 gm/ Dextrose 55 ml @ 110 mls/hr Q24H IVPB 07/27/19 15:00 08/03/19 14:59 07/27/19 15:44 Furosemide (Lasix) 40 mg DAILY IV 07/27/19 09:00 08/26/19 08:59 07/28/19 08:53 Lorazepam (Ativan) 1 mg Q6H PRN ORAL For Anxiety 07/26/19 22:00 08/02/19 21:59 Losartan Potassium (Cozaar) 50 mg DAILY ORAL 07/27/19 09:00 08/26/19 08:59 07/28/19 08:54 Rivaroxaban (Xarelto) 15 mg BID ORAL 07/27/19 18:00 08/17/19 09:01 07/28/19 08:54 Rivaroxaban (Xarelto) 20 mg DAILY ORAL 08/18/19 09:00 09/17/19 08:59 Tramadol HCl (Ultram) 50 mg Q6H PRN ORAL Severe Pain (Pain Scale 7-10) 07/26/19 22:00 08/02/19 21:59 07/28/19 06:25 Vancomycin HCl (Vanco rx to dose) 1 ea DAILY PRN MISC Per rx protocol 07/26/19 22:00 08/25/19 21:59 Vancomycin/Sodium Chloride 275 ml @ 184 mls/hr Q24H IVPB 07/27/19 00:00 08/01/19 00:00 07/28/19 00:29 Assessment/Plan Assessment/Plan: A: B/L L/E edema, heel DTI Stage 1 Edema HTN Obesity Anemia Acute DVT L femoral Vein P: Pt seen and evaluated Discuss findings with patient Venous Doppler confirmed DVT L femoral Vein, DVT Tx per primary team Rec off-loading measures to B/L L/E, ABD pad x 2 heel and Provlon boots. Cont Tx per specialists No acute surgical intervention required at this time. Podiatry will cont to monitor. Tee Taylor DPM Jul 28, 2019 09:15
[2019-07-28 12:00] VITALS: BP 125/68
--- NOTE | 2019-07-28 14:55 | Pulmonology Progress Note ---
Assessment/Plan Problems: (1) Cellulitis (2) Severe anemia (3) Peripheral edema (4) Elephantiasis (5) Mild pulmonary hypertension (6) Morbid obesity (7) History of hypertension Assessment/Plan wound care, iv abx podiatry monitor BP f/u stool for OB symptomatic treatment. Subjective ROS Limited/Unobtainable: No Constitutional: Reports: no symptoms HEENT: Repors: no symptoms Respiratory: Reports: no symptoms Allergies: Coded Allergies: No Known Allergies (Unverified , 02/03/19) Objective Last 24 Hour Vital Signs Date Time Temp Pulse Resp B/P (MAP) Pulse Ox O2 Delivery O2 Flow Rate FiO2 07/28/19 12:00 97.8 80 20 125/68 (87) 98 07/28/19 09:00 Room Air 07/28/19 08:54 136/66 07/28/19 08:53 87 136/66 07/28/19 08:00 97.9 87 19 136/66 (89) 94 07/28/19 04:00 98.2 82 18 147/73 (97) 95 07/28/19 00:00 98.1 84 18 122/71 (88) 93 07/27/19 21:10 97.9 07/27/19 20:15 Room Air 07/27/19 20:06 97.9 79 18 132/60 (84) 94 07/27/19 18:25 80 144/66 07/27/19 16:00 97.9 18 144/66 (92) 97 Intake and Output 07/27/19 07/28/19 19:00 07:00 Intake Total 480 ml 2026 ml Output Total 1800 ml 700 ml Balance -1320 ml 1326 ml Intake Oral 480 ml IV Total 2026 ml Output Urine Total 1800 ml 700 ml # Voids 2 # Bowel Movements 1 General Appearance: WD/WN HEENT: normocephalic, atraumatic Respiratory/Chest: chest wall non-tender, lungs clear Breasts: no masses Cardiovascular: normal peripheral pulses Abdomen: normal bowel sounds Extremities: no clubbing Neurologic/Psychiatric: civil division deputy sheriff II-XII grossly normal Laboratory Tests 07/28/19 04:42: White Blood Count 8.7, Red Blood Count 3.50L, Hemoglobin 10.0L, Hematocrit 29.8L , Mean Corpuscular Volume 85, Mean Corpuscular Hemoglobin 28.6, Mean Corpuscular Hemoglobin Concent 33.5, Red Cell Distribution Width 12.8, Platelet Count 191, Mean Platelet Volume 6.4L, Neutrophils (%) (Auto) 70.3, Lymphocytes ( %) (Auto) 17.3L, Monocytes (%) (Auto) 7.3, Eosinophils (%) (Auto) 4.5H, Basophils (%) (Auto) 0.6, Differential Total Cells Counted 100, Neutrophils % ( Manual) 76H, Lymphocytes % (Manual) 15L, Monocytes % (Manual) 5, Eosinophils % ( Manual) 4H, Basophils % (Manual) 0, Band Neutrophils 0, Other Cell Type Pathologist review, Platelet Estimate Adequate, Platelet Morphology Normal, Red Blood Cell Morphology Normal, Erythrocyte Sedimentation Rate 50H, Reticulocyte Count 0.4L, Prothrombin Time 12.5H, Prothromb Time International Ratio 1.2H, Activated Partial Thromboplast Time 39H, Sodium Level 145, Potassium Level 3.5, Chloride Level 107, Carbon Dioxide Level 31, Anion Gap 7, Blood Urea Nitrogen 13 , Creatinine 1.0, Estimat Glomerular Filtration Rate > 60, Glucose Level 105, Calcium Level 8.9, Iron Level 33L, Total Iron Binding Capacity 200L, Percent Iron Saturation 17, Unsaturated Iron Binding 167, Lactate Dehydrogenase 147, Pro -B-Type Natriuretic Peptide 684H, Carcinoembryonic Antigen [Pending], Vitamin B12 Level 279, Folate 6.7L 07/28/19 11:00: Stool Occult Blood [Pending] Current Medications Medications (Trade) Dose Ordered Sig/Christel Route PRN Reason Start Time Stop Time Status Last Admin Dose Admin Acetaminophen (Tylenol) 1,000 mg Q6H PRN ORAL Mild Pain/Temp > 100.5 07/26/19 22:00 08/25/19 21:59 07/26/19 22:33 Aspirin (Ecotrin) 81 mg DAILY ORAL 07/27/19 09:00 08/26/19 08:59 07/28/19 08:57 Carvedilol (Coreg) 25 mg BID ORAL 07/27/19 09:00 08/26/19 08:59 07/28/19 08:53 Ceftriaxone Sodium 1 gm/ Dextrose 55 ml @ 110 mls/hr Q24H IVPB 07/27/19 15:00 08/03/19 14:59 07/27/19 15:44 Furosemide (Lasix) 40 mg DAILY IV 07/27/19 09:00 08/26/19 08:59 07/28/19 08:53 Lorazepam (Ativan) 1 mg Q6H PRN ORAL For Anxiety 07/26/19 22:00 08/02/19 21:59 Losartan Potassium (Cozaar) 50 mg DAILY ORAL 07/27/19 09:00 08/26/19 08:59 07/28/19 08:54 Rivaroxaban (Xarelto) 15 mg BID ORAL 07/27/19 18:00 08/17/19 09:01 07/28/19 08:54 Rivaroxaban (Xarelto) 20 mg DAILY ORAL 08/18/19 09:00 09/17/19 08:59 Tramadol HCl (Ultram) 50 mg Q6H PRN ORAL Severe Pain (Pain Scale 7-10) 07/26/19 22:00 08/02/19 21:59 07/28/19 06:25 Vancomycin HCl (Vanco rx to dose) 1 ea DAILY PRN MISC Per rx protocol 07/26/19 22:00 08/25/19 21:59 Vancomycin/Sodium Chloride 275 ml @ 184 mls/hr Q24H IVPB 07/27/19 00:00 08/01/19 00:00 07/28/19 00:29 Mone Newton MD Jul 28, 2019 14:55
--- NOTE | 2019-07-28 15:02 | Infectious Diseases Prog Note ---
Subjective Allergies: Coded Allergies: No Known Allergies (Unverified , 02/03/19) Subjective # [id number] Objective Vital Signs Last 24 Hour Vital Signs Date Time Temp Pulse Resp B/P (MAP) Pulse Ox O2 Delivery O2 Flow Rate FiO2 07/28/19 12:00 97.8 80 20 125/68 (87) 98 07/28/19 09:00 Room Air 07/28/19 08:54 136/66 07/28/19 08:53 87 136/66 07/28/19 08:00 97.9 87 19 136/66 (89) 94 07/28/19 04:00 98.2 82 18 147/73 (97) 95 07/28/19 00:00 98.1 84 18 122/71 (88) 93 07/27/19 21:10 97.9 07/27/19 20:15 Room Air 07/27/19 20:06 97.9 79 18 132/60 (84) 94 07/27/19 18:25 80 144/66 07/27/19 16:00 97.9 18 144/66 (92) 97 Height (Feet): 5 Height (Inches): 2.00 Weight (Pounds): 227 Laboratory Tests Test 07/28/19 04:42 07/28/19 11:00 White Blood Count 8.7 K/UL (4.8-10.8) Red Blood Count 3.50 M/UL (4.20-5.40) L Hemoglobin 10.0 G/DL (12.0-16.0) L Hematocrit 29.8 % (37.0-47.0) L Mean Corpuscular Volume 85 FL (80-99) Mean Corpuscular Hemoglobin 28.6 PG (27.0-31.0) Mean Corpuscular Hemoglobin Concent 33.5 G/DL (32.0-36.0) Red Cell Distribution Width 12.8 % (11.6-14.8) Platelet Count 191 K/UL (150-450) Mean Platelet Volume 6.4 FL (6.5-10.1) L Neutrophils (%) (Auto) 70.3 % (45.0-75.0) Lymphocytes (%) (Auto) 17.3 % (20.0-45.0) L Monocytes (%) (Auto) 7.3 % (1.0-10.0) Eosinophils (%) (Auto) 4.5 % (0.0-3.0) H Basophils (%) (Auto) 0.6 % (0.0-2.0) Differential Total Cells Counted 100 Neutrophils % (Manual) 76 % (45-75) H Lymphocytes % (Manual) 15 % (20-45) L Monocytes % (Manual) 5 % (1-10) Eosinophils % (Manual) 4 % (0-3) H Basophils % (Manual) 0 % (0-2) Band Neutrophils 0 % (0-8) Other Cell Type Pathologist review Platelet Estimate Adequate Platelet Morphology Normal Red Blood Cell Morphology Normal Erythrocyte Sedimentation Rate 50 MM/HR (0-30) H Reticulocyte Count 0.4 % (0.5-2.0) L Prothrombin Time 12.5 SEC (9.30-11.50) H Prothromb Time International Ratio 1.2 (0.9-1.1) H Activated Partial Thromboplast Time 39 SEC (23-33) H Sodium Level 145 MMOL/L (136-145) Potassium Level 3.5 MMOL/L (3.5-5.1) Chloride Level 107 MMOL/L (98-107) Carbon Dioxide Level 31 MMOL/L (21-32) Anion Gap 7 mmol/L (5-15) Blood Urea Nitrogen 13 mg/dL (7-18) Creatinine 1.0 MG/DL (0.55-1.30) Estimat Glomerular Filtration Rate > 60 mL/min (>60) Glucose Level 105 MG/DL (74-106) Calcium Level 8.9 MG/DL (8.5-10.1) Iron Level 33 ug/dL (50-175) L Total Iron Binding Capacity 200 ug/dL (250-450) L Percent Iron Saturation 17 % (15-50) Unsaturated Iron Binding 167 ug/dL (112-346) Lactate Dehydrogenase 147 U/L (81-234) Pro-B-Type Natriuretic Peptide 684 pg/mL (0-125) H Carcinoembryonic Antigen Pending Vitamin B12 Level 279 PG/ML (193-986) Folate 6.7 NG/ML (8.6-58.9) L Stool Occult Blood Pending Current Medications Medications (Trade) Dose Ordered Sig/Christel Route PRN Reason Start Time Stop Time Status Last Admin Dose Admin Acetaminophen (Tylenol) 1,000 mg Q6H PRN ORAL Mild Pain/Temp > 100.5 07/26/19 22:00 08/25/19 21:59 07/26/19 22:33 Aspirin (Ecotrin) 81 mg DAILY ORAL 07/27/19 09:00 08/26/19 08:59 07/28/19 08:57 Carvedilol (Coreg) 25 mg BID ORAL 07/27/19 09:00 08/26/19 08:59 07/28/19 08:53 Ceftriaxone Sodium 1 gm/ Dextrose 55 ml @ 110 mls/hr Q24H IVPB 07/27/19 15:00 08/03/19 14:59 07/27/19 15:44 Furosemide (Lasix) 40 mg DAILY IV 07/27/19 09:00 08/26/19 08:59 07/28/19 08:53 Lorazepam (Ativan) 1 mg Q6H PRN ORAL For Anxiety 07/26/19 22:00 08/02/19 21:59 Losartan Potassium (Cozaar) 50 mg DAILY ORAL 07/27/19 09:00 08/26/19 08:59 07/28/19 08:54 Rivaroxaban (Xarelto) 15 mg BID ORAL 07/27/19 18:00 08/17/19 09:01 07/28/19 08:54 Rivaroxaban (Xarelto) 20 mg DAILY ORAL 08/18/19 09:00 09/17/19 08:59 Tramadol HCl (Ultram) 50 mg Q6H PRN ORAL Severe Pain (Pain Scale 7-10) 07/26/19 22:00 08/02/19 21:59 07/28/19 06:25 Vancomycin HCl (Vanco rx to dose) 1 ea DAILY PRN MISC Per rx protocol 07/26/19 22:00 08/25/19 21:59 Vancomycin/Sodium Chloride 275 ml @ 184 mls/hr Q24H IVPB 07/27/19 00:00 08/01/19 00:00 07/28/19 00:29 Johnnie Joel MD Jul 28, 2019 15:02
[2019-07-28] MEDS: cefTRIAXone 1 GM in D5W 55 ML IVPB SCH (15:38)
[2019-07-28 16:00] VITALS: BP 135/61
--- NOTE | 2019-07-28 18:43 | Internal Med Progress Note ---
Subjective Date of Service: Jul 28, 2019 Physician Name Tony Gaytan Attending Physician Mark Jones MD Current Medications Medications (Trade) Dose Ordered Sig/Christel Route PRN Reason Start Time Stop Time Status Last Admin Dose Admin Acetaminophen (Tylenol) 1,000 mg Q6H PRN ORAL Mild Pain/Temp > 100.5 07/26/19 22:00 08/25/19 21:59 07/26/19 22:33 Aspirin (Ecotrin) 81 mg DAILY ORAL 07/27/19 09:00 08/26/19 08:59 07/28/19 08:57 Carvedilol (Coreg) 25 mg BID ORAL 07/27/19 09:00 08/26/19 08:59 07/28/19 18:09 Furosemide (Lasix) 40 mg DAILY IV 07/27/19 09:00 08/26/19 08:59 07/28/19 08:53 Lorazepam (Ativan) 1 mg Q6H PRN ORAL For Anxiety 07/26/19 22:00 08/02/19 21:59 Losartan Potassium (Cozaar) 50 mg DAILY ORAL 07/27/19 09:00 08/26/19 08:59 07/28/19 08:54 Rivaroxaban (Xarelto) 15 mg BID ORAL 07/27/19 18:00 08/17/19 09:01 07/28/19 18:09 Rivaroxaban (Xarelto) 20 mg DAILY ORAL 08/18/19 09:00 09/17/19 08:59 Tramadol HCl (Ultram) 50 mg Q6H PRN ORAL Severe Pain (Pain Scale 7-10) 07/26/19 22:00 08/02/19 21:59 07/28/19 06:25 Vancomycin HCl (Vanco rx to dose) 1 ea DAILY PRN MISC Per rx protocol 07/26/19 22:00 08/25/19 21:59 Vancomycin/Sodium Chloride 275 ml @ 184 mls/hr Q24H IVPB 07/27/19 00:00 08/01/19 00:00 07/28/19 00:29 Allergies: Coded Allergies: No Known Allergies (Unverified , 02/03/19) ROS Limited/Unobtainable: No Constitutional: Reports: no symptoms HEENT: Reports: no symptoms Cardiovascular: Reports: no symptoms Respiratory: Reports: no symptoms Gastrointestinal/Abdominal: Reports: no symptoms Genitourinary: Reports: no symptoms Neurologic/Psychiatric: Reports: no symptoms Subjective 84 YO F admitted with bilateral leg swelling. Now cellulitis bilat lower extremities and acute deep venous thrombosis left leg. Cover for Jia Jones Objective Last Vital Signs Date Time Temp Pulse Resp B/P (MAP) Pulse Ox O2 Delivery O2 Flow Rate FiO2 07/28/19 18:09 78 135/61 07/28/19 16:00 97.8 20 96 07/28/19 09:00 Room Air Laboratory Tests Test 07/28/19 04:42 07/28/19 11:00 White Blood Count 8.7 K/UL (4.8-10.8) Red Blood Count 3.50 M/UL (4.20-5.40) L Hemoglobin 10.0 G/DL (12.0-16.0) L Hematocrit 29.8 % (37.0-47.0) L Mean Corpuscular Volume 85 FL (80-99) Mean Corpuscular Hemoglobin 28.6 PG (27.0-31.0) Mean Corpuscular Hemoglobin Concent 33.5 G/DL (32.0-36.0) Red Cell Distribution Width 12.8 % (11.6-14.8) Platelet Count 191 K/UL (150-450) Mean Platelet Volume 6.4 FL (6.5-10.1) L Neutrophils (%) (Auto) 70.3 % (45.0-75.0) Lymphocytes (%) (Auto) 17.3 % (20.0-45.0) L Monocytes (%) (Auto) 7.3 % (1.0-10.0) Eosinophils (%) (Auto) 4.5 % (0.0-3.0) H Basophils (%) (Auto) 0.6 % (0.0-2.0) Differential Total Cells Counted 100 Neutrophils % (Manual) 76 % (45-75) H Lymphocytes % (Manual) 15 % (20-45) L Monocytes % (Manual) 5 % (1-10) Eosinophils % (Manual) 4 % (0-3) H Basophils % (Manual) 0 % (0-2) Band Neutrophils 0 % (0-8) Other Cell Type Pathologist review Platelet Estimate Adequate Platelet Morphology Normal Red Blood Cell Morphology Normal Erythrocyte Sedimentation Rate 50 MM/HR (0-30) H Reticulocyte Count 0.4 % (0.5-2.0) L Prothrombin Time 12.5 SEC (9.30-11.50) H Prothromb Time International Ratio 1.2 (0.9-1.1) H Activated Partial Thromboplast Time 39 SEC (23-33) H Sodium Level 145 MMOL/L (136-145) Potassium Level 3.5 MMOL/L (3.5-5.1) Chloride Level 107 MMOL/L (98-107) Carbon Dioxide Level 31 MMOL/L (21-32) Anion Gap 7 mmol/L (5-15) Blood Urea Nitrogen 13 mg/dL (7-18) Creatinine 1.0 MG/DL (0.55-1.30) Estimat Glomerular Filtration Rate > 60 mL/min (>60) Glucose Level 105 MG/DL (74-106) Calcium Level 8.9 MG/DL (8.5-10.1) Iron Level 33 ug/dL (50-175) L Total Iron Binding Capacity 200 ug/dL (250-450) L Percent Iron Saturation 17 % (15-50) Unsaturated Iron Binding 167 ug/dL (112-346) Lactate Dehydrogenase 147 U/L (81-234) Pro-B-Type Natriuretic Peptide 684 pg/mL (0-125) H Carcinoembryonic Antigen Pending Vitamin B12 Level 279 PG/ML (193-986) Folate 6.7 NG/ML (8.6-58.9) L Stool Occult Blood Pending Intake and Output 07/27/19 07/28/19 19:00 07:00 Intake Total 480 ml 2026 ml Output Total 1800 ml 700 ml Balance -1320 ml 1326 ml Intake Oral 480 ml IV Total 2026 ml Output Urine Total 1800 ml 700 ml # Voids 2 # Bowel Movements 1 Objective PHYSICAL EXAMINATION: GENERAL: The patient is a well-developed, well-nourished female, in no apparent distress. HEENT: Eyes, pupils equal and responsive to light and accommodation. Extraocular movements are intact. NECK: Supple without lymphadenopathy. CHEST: Lungs are clear to auscultation bilaterally without wheezes or rales. CARDIOVASCULAR: Regular rhythm and rate. S1, S2 normal without murmurs, rubs, or gallops. ABDOMEN: Soft, nontender, and nondistended. Positive bowel sounds. No evidence of hepatosplenomegaly. Currently, no rebound or guarding. EXTREMITIES: A 2+ pitting edema from the ankles to the knees bilaterally with erythema of the left anterior calf from the ankle to the knee, left greater than right. Assessment/Plan Assessment/Plan ASSESSMENT: This is an 84-year-old female: 1. Cellulitis of bilateral lower extremities. 2. Lymphedema bilateral lower extremities. 3. Bilateral leg pain. 4. Hypertension. 5. Acute deep venous thrombosis left common femoral to superficial femoral vein TREATMENT: 1. Cellulitis of the bilateral lower extremities. The patient has been started empirically on intravenous vancomycin and ceftriaxone. An Infectious Disease consultation has been obtained with Dr. Joel. We will follow recommendations of Infectious Disease. 2. Hypertension. Continue Cozaar and Coreg as above. 3. Start Tony Valverde MD Jul 28, 2019 18:43
--- NOTE | 2019-07-28 19:16 | NUR ---
HAND-OFF: Report given to Oliver Bowens
[2019-07-28 20:00] VITALS: BP 123/52
--- NOTE | 2019-07-28 20:00 | NUR ---
NURSE NOTES: Received report from ISHAN Freeman. Pt resting in bed, AAO x 4, on room air. IV site intact and patent. No acute distress noted. Fall precaution maintained. HOB elevated. Elevated bilateral legs with pillow. Bed locked, alarm on, side rails up, call light within reach. Will continue to monitor.
--- NOTE | 2019-07-28 20:30 | Consultation ---
DATE OF CONSULTATION: 07/28/2019 INFECTIOUS DISEASES CONSULTATION CONSULTING PHYSICIAN: Johnnie Joel M.D. REFERRING PHYSICIAN: Tony Gaytan M.D. REASON FOR CONSULTATION: Evaluation of patient for cellulitis of lower extremity. HISTORY OF PRESENT ILLNESS: The patient is an 84-year-old female with multiple medical problems as listed below, who was admitted to this medical center due to lower extremity edema and erythema. Infectious Diseases consultation has been requested for further evaluation of the patient's antibiotic management. PAST MEDICAL HISTORY: Significant for: 1. Hypertension. 2. Bilateral lymphedema. ALLERGIES: No known drug allergies. SOCIAL HISTORY: Negative for alcohol and drug abuse. FAMILY HISTORY: Noncontributory. MEDICATIONS: Rocephin, vancomycin. REVIEW OF SYSTEMS: A 10-point review of systems was done and except what has been mentioned above has been negative. PHYSICAL EXAMINATION: VITAL SIGNS: Temperature 98, blood pressure 125/68, pulse 80, respiratory rate 20. HEENT: No pale conjunctivae. No icterus. NECK: No lymphadenopathy. CHEST: Clear. HEART: S1 and S2. ABDOMEN: Soft. EXTREMITIES: The patient has bilateral lower extremity edema, mild erythema and lymphedema. NEUROLOGIC: Awake and alert. LABORATORY AND DIAGNOSTIC DATA: White blood cells 8.7, hemoglobin 10, platelet 191. BUN 13, creatinine 1. Venous Doppler showed acute DVT in common vein and superficial vein. ASSESSMENT: The patient is an 84-year-old female with lower extremity lymphedema/cellulitis. 1. Left lower extremity edema. 2. Normal white blood cells and afebrile. PLAN: 1. We will continue the patient on IV vancomycin. 2. Hold Rocephin. 3. Monitor CBC. 4. Monitor BMP. 5. We will send blood cultures. Based on the patient's clinical course and labs, we will do further recommendations. Thank you, Dr. Gaytan, for allowing me to participate in the care of this patient. I will follow the patient with you during hospitalization. Johnnie Joel M.D. DR: Ariane JOB#: [id number] CC:
[2019-07-29] VITALS: BP 119/52
[2019-07-29 03:59] VITALS: BP 133/62
[2019-07-29] MEDS: traMADol 50mg tab ORAL PRN ×2 (06:05→12:39)
[2019-07-29 06:40] LABS: ANION GAP 11 mmol/L (5-15); BLOOD UREA NITROGEN 17 mg/dL (7-18); CARBON DIOXIDE 28 MMOL/L (21-32); CHLORIDE 107 MMOL/L (98-107); POTASSIUM 3.7 MMOL/L (3.5-5.1); SODIUM 146 MMOL/L (136-145)
[2019-07-29 07:04] LABS: BASOPHILS % (AUTO) 0.6 % (0.0-2.0); EOSINOPHILS % (AUTO) 3.7 % (0.0-3.0); HEMATOCRIT 30.3 % (37.0-47.0); HEMOGLOBIN 10.2 G/DL (12.0-16.0); LYMPHOCYTES % (AUTO) 14.9 % (20.0-45.0); MEAN CORPUSCULAR VOLUME 86 FL (80-99); MONOCYTES % (AUTO) 7.8 % (1.0-10.0); PLATELET COUNT 193 K/UL (150-450); RED BLOOD COUNT 3.53 M/UL (4.20-5.40); RED CELL DISTRIBUTION WIDTH 12.6 % (11.6-14.8); WHITE BLOOD COUNT 10.5 K/UL (4.8-10.8)
--- NOTE | 2019-07-29 07:10 | NUR ---
NURSE NOTES: received report from ISHAN Bowens. patient in bed, A&Ox4, verbally responsive. no respiratory distress noted. c/o mild pain on both feet, patient took tramadol at 0630. will continue to monitor effectiveness of medication. elevate both legs and heels with pillow in bed, IV on right wrist 24g saline lock intact. bed in the lowest position and locked. call light within reach. will continue to provide plan of care.
--- NOTE | 2019-07-29 07:45 | NUR ---
HAND-OFF: Report given to ISHAN Jackson.
[2019-07-29 08:00] VITALS: BP 144/66
[2019-07-29] MEDS: Aspirin EC 81mg tab ORAL SCH (09:24)
[2019-07-29] MEDS: Carvedilol 25mg Tab ORAL SCH ×2 (09:24→17:27)
[2019-07-29] MEDS: Xarelto 15mg tab ORAL SCH ×2 (09:24→17:25)
[2019-07-29] MEDS: Losartan 50mg tab ORAL SCH (09:24)
--- NOTE | 2019-07-29 11:30 | Infectious Diseases Prog Note ---
Assessment/Plan Assessment/Plan ASSESSMENT: The patient is an 84-year-old female with Lower extremity lymphedema/cellulitis Left lower extremity edema. Normal white blood cells and afebrile DVT: Acute DVT in the left common femoral vein and superficial femoral vein Hypertension. Bilateral lymphedema PLAN: Continue the patient on IV vancomycin # 2 07/28 Sp Rocephin # 1 Monitor CBC Monitor BMP. Blood cultures. Subjective Allergies: Coded Allergies: No Known Allergies (Unverified , 02/03/19) Subjective no acute event Objective Vital Signs Last 24 Hour Vital Signs Date Time Temp Pulse Resp B/P (MAP) Pulse Ox O2 Delivery O2 Flow Rate FiO2 07/29/19 09:24 144/66 07/29/19 09:24 85 144/66 07/29/19 09:00 Room Air 07/29/19 08:00 97.9 85 18 144/66 (92) 95 07/29/19 03:59 98.7 88 18 133/62 (85) 94 07/29/19 00:00 98.5 83 18 119/52 (74) 97 07/28/19 21:00 Room Air 07/28/19 20:00 98.4 80 18 123/52 (75) 94 07/28/19 18:09 78 135/61 07/28/19 16:00 97.8 78 20 135/61 (85) 96 07/28/19 12:00 97.8 80 20 125/68 (87) 98 Height (Feet): 5 Height (Inches): 2.00 Weight (Pounds): 227 HEENT: anicteric Respiratory/Chest: no respiratory distress Cardiovascular: regular rhythm Abdomen: soft, non tender Laboratory Tests Test 07/29/19 05:15 White Blood Count 10.5 K/UL (4.8-10.8) Red Blood Count 3.53 M/UL (4.20-5.40) L Hemoglobin 10.2 G/DL (12.0-16.0) L Hematocrit 30.3 % (37.0-47.0) L Mean Corpuscular Volume 86 FL (80-99) Mean Corpuscular Hemoglobin 28.9 PG (27.0-31.0) Mean Corpuscular Hemoglobin Concent 33.7 G/DL (32.0-36.0) Red Cell Distribution Width 12.6 % (11.6-14.8) Platelet Count 193 K/UL (150-450) Mean Platelet Volume 5.7 FL (6.5-10.1) L Neutrophils (%) (Auto) 73.0 % (45.0-75.0) Lymphocytes (%) (Auto) 14.9 % (20.0-45.0) L Monocytes (%) (Auto) 7.8 % (1.0-10.0) Eosinophils (%) (Auto) 3.7 % (0.0-3.0) H Basophils (%) (Auto) 0.6 % (0.0-2.0) Sodium Level 146 MMOL/L (136-145) H Potassium Level 3.7 MMOL/L (3.5-5.1) Chloride Level 107 MMOL/L (98-107) Carbon Dioxide Level 28 MMOL/L (21-32) Anion Gap 11 mmol/L (5-15) Blood Urea Nitrogen 17 mg/dL (7-18) Creatinine 1.0 MG/DL (0.55-1.30) Estimat Glomerular Filtration Rate > 60 mL/min (>60) Glucose Level 109 MG/DL (74-106) H Calcium Level 9.0 MG/DL (8.5-10.1) Current Medications Medications (Trade) Dose Ordered Sig/Christel Route PRN Reason Start Time Stop Time Status Last Admin Dose Admin Acetaminophen (Tylenol) 1,000 mg Q6H PRN ORAL Mild Pain/Temp > 100.5 07/26/19 22:00 08/25/19 21:59 07/26/19 22:33 Aspirin (Ecotrin) 81 mg DAILY ORAL 07/27/19 09:00 08/26/19 08:59 07/29/19 09:24 Carvedilol (Coreg) 25 mg BID ORAL 07/27/19 09:00 08/26/19 08:59 07/29/19 09:24 Furosemide (Lasix) 40 mg DAILY IV 07/27/19 09:00 08/26/19 08:59 07/29/19 09:25 Lorazepam (Ativan) 1 mg Q6H PRN ORAL For Anxiety 07/26/19 22:00 08/02/19 21:59 Losartan Potassium (Cozaar) 50 mg DAILY ORAL 07/27/19 09:00 08/26/19 08:59 07/29/19 09:24 Rivaroxaban (Xarelto) 15 mg BID ORAL 07/27/19 18:00 08/17/19 09:01 07/29/19 09:24 Rivaroxaban (Xarelto) 20 mg DAILY ORAL 08/18/19 09:00 09/17/19 08:59 Tramadol HCl (Ultram) 50 mg Q6H PRN ORAL Severe Pain (Pain Scale 7-10) 07/26/19 22:00 08/02/19 21:59 07/29/19 06:05 Vancomycin HCl (Vanco rx to dose) 1 ea DAILY PRN MISC Per rx protocol 07/26/19 22:00 08/25/19 21:59 Vancomycin/Sodium Chloride 275 ml @ 184 mls/hr Q24H IVPB 07/27/19 00:00 08/01/19 00:00 07/28/19 23:42 Johnnie Joel MD Jul 29, 2019 11:30
[2019-07-29 12:00] VITALS: BP 123/64
[2019-07-29] MEDS ORDERED: LORazepam Inj 2mg/ml 1ml IV PRN (12:15)
--- NOTE | 2019-07-29 13:24 | NUR ---
CASE MANAGEMENT:REVIEW SI;ACUTE DVT. BLE LYMPHEDEMA/CELLULITIS. LEFT LE EDEMA. 98.6 88 18 144/66 94% ON RA NA 146 IS;VANCOMYCIN IV Q24 HRS LASIX IV QD COZAAR PO QD COREG PO BID XARELTO PO QD DCP;FROM HOME
--- NOTE | 2019-07-29 14:48 | NUR ---
RD ASSESSMENT & RECOMMENDATIONS SEE CARE ACTIVITY FOR COMPLETE ASSESSMENT DAILY ESTIMATED NEEDS: Needs based on obese, wound 61kg adj 22-25 kcals/kg 2493-8480 total kcals 1.25-1.5 g protein/kg 76-91 g total protein Fluid per MD, on lasix mL/kg total fluid mLs NUTRITION DIAGNOSIS: Decreased sodium intake needs R/T fluid retention and cardiac hx as evidenced by h/o HTN, edematous w/ 2+ BL leg, on lasix. CURRENT DIET:REGULAR PO DIET RECOMMENDATIONS: LOW NA ADDITIONAL RECOMMENDATIONS: 1) Calibrated bedscale wt 2) Check lytes daily on lasix 3) Skin integrity: add MVI x 1 Addendum: 07/29/19 at [address] 4) Rec folic acid 1mg QD: low folate 6.7
--- NOTE | 2019-07-29 14:57 | Pulmonology Progress Note ---
Assessment/Plan Problems: (1) Cellulitis (2) Severe anemia (3) Peripheral edema (4) Elephantiasis (5) Mild pulmonary hypertension (6) Morbid obesity (7) History of hypertension Assessment/Plan doing better all reviewed wound care, iv abx podiatry monitor BP f/u stool for OB symptomatic treatment. Subjective Interval Events: doing better Allergies: Coded Allergies: No Known Allergies (Unverified , 02/03/19) Objective Last 24 Hour Vital Signs Date Time Temp Pulse Resp B/P (MAP) Pulse Ox O2 Delivery O2 Flow Rate FiO2 07/29/19 12:00 98.6 76 18 123/64 (83) 95 07/29/19 09:24 144/66 07/29/19 09:24 85 144/66 07/29/19 09:00 Room Air 07/29/19 08:00 97.9 85 18 144/66 (92) 95 07/29/19 03:59 98.7 88 18 133/62 (85) 94 07/29/19 00:00 98.5 83 18 119/52 (74) 97 07/28/19 21:00 Room Air 07/28/19 20:00 98.4 80 18 123/52 (75) 94 07/28/19 18:09 78 135/61 07/28/19 16:00 97.8 78 20 135/61 (85) 96 Intake and Output 07/28/19 07/29/19 19:00 07:00 Intake Total 1080 ml Output Total 1300 ml 900 ml Balance -220 ml -900 ml Intake Oral 1080 ml Output Urine Total 1300 ml 900 ml # Bowel Movements 1 General Appearance: WD/WN HEENT: normocephalic, atraumatic Respiratory/Chest: chest wall non-tender, lungs clear Breasts: no masses Cardiovascular: normal rate Abdomen: normal bowel sounds, non distended Extremities: no cyanosis Skin: no rash Laboratory Tests 07/29/19 05:15: White Blood Count 10.5, Red Blood Count 3.53L, Hemoglobin 10.2L, Hematocrit 30.3L, Mean Corpuscular Volume 86, Mean Corpuscular Hemoglobin 28.9, Mean Corpuscular Hemoglobin Concent 33.7, Red Cell Distribution Width 12.6, Platelet Count 193, Mean Platelet Volume 5.7L, Neutrophils (%) (Auto) 73.0, Lymphocytes ( %) (Auto) 14.9L, Monocytes (%) (Auto) 7.8, Eosinophils (%) (Auto) 3.7H, Basophils (%) (Auto) 0.6, Sodium Level 146H, Potassium Level 3.7, Chloride Level 107, Carbon Dioxide Level 28, Anion Gap 11, Blood Urea Nitrogen 17, Creatinine 1.0, Estimat Glomerular Filtration Rate > 60, Glucose Level 109H, Calcium Level 9.0 Current Medications Medications (Trade) Dose Ordered Sig/Christel Route PRN Reason Start Time Stop Time Status Last Admin Dose Admin Acetaminophen (Tylenol) 1,000 mg Q6H PRN ORAL Mild Pain/Temp > 100.5 07/26/19 22:00 08/25/19 21:59 07/26/19 22:33 Aspirin (Ecotrin) 81 mg DAILY ORAL 07/27/19 09:00 08/26/19 08:59 07/29/19 09:24 Carvedilol (Coreg) 25 mg BID ORAL 07/27/19 09:00 08/26/19 08:59 07/29/19 09:24 Furosemide (Lasix) 40 mg DAILY IV 07/27/19 09:00 08/26/19 08:59 07/29/19 09:25 Lorazepam (Ativan 2mg/ml 1ml) 2 mg Q4H PRN IV For Anxiety 07/29/19 12:15 08/05/19 12:14 Lorazepam (Ativan) 1 mg Q6H PRN ORAL For Anxiety 07/26/19 22:00 08/02/19 21:59 Losartan Potassium (Cozaar) 50 mg DAILY ORAL 07/27/19 09:00 08/26/19 08:59 07/29/19 09:24 Rivaroxaban (Xarelto) 15 mg BID ORAL 07/27/19 18:00 08/17/19 09:01 07/29/19 09:24 Rivaroxaban (Xarelto) 20 mg DAILY ORAL 08/18/19 09:00 09/17/19 08:59 Tramadol HCl (Ultram) 50 mg Q6H PRN ORAL Severe Pain (Pain Scale 7-10) 07/26/19 22:00 08/02/19 21:59 07/29/19 12:39 Vancomycin HCl (Vanco rx to dose) 1 ea DAILY PRN MISC Per rx protocol 07/26/19 22:00 08/25/19 21:59 Vancomycin/Sodium Chloride 275 ml @ 184 mls/hr Q24H IVPB 07/27/19 00:00 08/01/19 00:00 07/28/19 23:42 Mone Newton MD Jul 29, 2019 14:57
[2019-07-29] MEDS: Morphine Sulfate 2mg/ml Inj(IV/IM USE ONLY) IVP PRN ×2 (15:51→22:22)
[2019-07-29 16:00] VITALS: BP 122/61
--- NOTE | 2019-07-29 19:30 | NUR ---
HAND-OFF: Report given to ISHAN Alva.
--- NOTE | 2019-07-29 19:35 | NUR ---
NURSE NOTES: Pt. received from ISHAN Jackson. Pt. AAOx4, on room air, breathing is even and unlabored, and no complaints of pain at this time. IV right right wrist 24g asymptomatic, intact and patent; saline locked. Pt.'s heels are elevated per MD order. Bed is low and locked, side rails x2 up, bed alarm active, and call light is in reach. Will continue to monitor.
--- NOTE | 2019-07-29 19:39 | Internal Med Progress Note ---
Subjective Date of Service: Jul 29, 2019 Physician Name Tony Gaytan Attending Physician Mark Jones MD Current Medications Medications (Trade) Dose Ordered Sig/Christel Route PRN Reason Start Time Stop Time Status Last Admin Dose Admin Acetaminophen (Tylenol) 1,000 mg Q6H PRN ORAL Mild Pain/Temp > 100.5 07/26/19 22:00 08/25/19 21:59 07/26/19 22:33 Aspirin (Ecotrin) 81 mg DAILY ORAL 07/27/19 09:00 08/26/19 08:59 07/29/19 09:24 Carvedilol (Coreg) 25 mg BID ORAL 07/27/19 09:00 08/26/19 08:59 07/29/19 17:27 Furosemide (Lasix) 40 mg DAILY IV 07/27/19 09:00 08/26/19 08:59 07/29/19 09:25 Lorazepam (Ativan 2mg/ml 1ml) 2 mg Q4H PRN IV For Anxiety 07/29/19 12:15 08/05/19 12:14 Lorazepam (Ativan) 1 mg Q6H PRN ORAL For Anxiety 07/26/19 22:00 08/02/19 21:59 Losartan Potassium (Cozaar) 50 mg DAILY ORAL 07/27/19 09:00 08/26/19 08:59 07/29/19 09:24 Morphine Sulfate (Morphine Sulfate) 2 mg Q4H PRN IVP For severe Pain 07/29/19 15:15 08/05/19 15:14 07/29/19 15:51 Ondansetron HCl (Zofran) 4 mg Q4H PRN IVP Nausea & Vomiting 07/29/19 15:15 08/28/19 15:14 07/29/19 15:51 Rivaroxaban (Xarelto) 15 mg BID ORAL 07/27/19 18:00 08/17/19 09:01 07/29/19 17:25 Rivaroxaban (Xarelto) 20 mg DAILY ORAL 08/18/19 09:00 09/17/19 08:59 Tramadol HCl (Ultram) 50 mg Q6H PRN ORAL Severe Pain (Pain Scale 7-10) 07/26/19 22:00 08/02/19 21:59 07/29/19 12:39 Vancomycin HCl (Vanco rx to dose) 1 ea DAILY PRN MISC Per rx protocol 07/26/19 22:00 08/25/19 21:59 Vancomycin/Sodium Chloride 275 ml @ 184 mls/hr Q24H IVPB 07/27/19 00:00 08/01/19 00:00 07/28/19 23:42 Allergies: Coded Allergies: No Known Allergies (Unverified , 02/03/19) ROS Limited/Unobtainable: No Constitutional: Reports: no symptoms HEENT: Reports: no symptoms Cardiovascular: Reports: no symptoms Respiratory: Reports: no symptoms Gastrointestinal/Abdominal: Reports: no symptoms Genitourinary: Reports: no symptoms Neurologic/Psychiatric: Reports: no symptoms Subjective 84 YO F admitted with bilateral leg swelling and cellulitis bilat lower extremities. Now acute deep venous thrombosis left leg. Cover for Int Edgardo-Dr Jones Objective Last Vital Signs Date Time Temp Pulse Resp B/P (MAP) Pulse Ox O2 Delivery O2 Flow Rate FiO2 07/29/19 17:27 89 123/68 07/29/19 16:21 99.0 07/29/19 16:00 18 98 07/29/19 09:00 Room Air Laboratory Tests Test 07/29/19 05:15 White Blood Count 10.5 K/UL (4.8-10.8) Red Blood Count 3.53 M/UL (4.20-5.40) L Hemoglobin 10.2 G/DL (12.0-16.0) L Hematocrit 30.3 % (37.0-47.0) L Mean Corpuscular Volume 86 FL (80-99) Mean Corpuscular Hemoglobin 28.9 PG (27.0-31.0) Mean Corpuscular Hemoglobin Concent 33.7 G/DL (32.0-36.0) Red Cell Distribution Width 12.6 % (11.6-14.8) Platelet Count 193 K/UL (150-450) Mean Platelet Volume 5.7 FL (6.5-10.1) L Neutrophils (%) (Auto) 73.0 % (45.0-75.0) Lymphocytes (%) (Auto) 14.9 % (20.0-45.0) L Monocytes (%) (Auto) 7.8 % (1.0-10.0) Eosinophils (%) (Auto) 3.7 % (0.0-3.0) H Basophils (%) (Auto) 0.6 % (0.0-2.0) Sodium Level 146 MMOL/L (136-145) H Potassium Level 3.7 MMOL/L (3.5-5.1) Chloride Level 107 MMOL/L (98-107) Carbon Dioxide Level 28 MMOL/L (21-32) Anion Gap 11 mmol/L (5-15) Blood Urea Nitrogen 17 mg/dL (7-18) Creatinine 1.0 MG/DL (0.55-1.30) Estimat Glomerular Filtration Rate > 60 mL/min (>60) Glucose Level 109 MG/DL (74-106) H Calcium Level 9.0 MG/DL (8.5-10.1) Intake and Output 07/28/19 07/29/19 19:00 07:00 Intake Total 1080 ml Output Total 1300 ml 900 ml Balance -220 ml -900 ml Intake Oral 1080 ml Output Urine Total 1300 ml 900 ml # Bowel Movements 1 Objective PHYSICAL EXAMINATION: GENERAL: The patient is a well-developed, well-nourished female, in no apparent distress. HEENT: Eyes, pupils equal and responsive to light and accommodation. Extraocular movements are intact. NECK: Supple without lymphadenopathy. CHEST: Lungs are clear to auscultation bilaterally without wheezes or rales. CARDIOVASCULAR: Regular rhythm and rate. S1, S2 normal without murmurs, rubs, or gallops. ABDOMEN: Soft, nontender, and nondistended. Positive bowel sounds. No evidence of hepatosplenomegaly. Currently, no rebound or guarding. EXTREMITIES: A 2+ pitting edema from the ankles to the knees bilaterally with erythema of the left anterior calf from the ankle to the knee, left greater than right. Assessment/Plan Assessment/Plan ASSESSMENT: This is an 84-year-old female: 1. Cellulitis of bilateral lower extremities. 2. Lymphedema bilateral lower extremities. 3. Bilateral leg pain. 4. Hypertension. 5. Acute deep venous thrombosis left common femoral to superficial femoral vein TREATMENT: 1. Cellulitis of the bilateral lower extremities. The patient has been started empirically on intravenous vancomycin and ceftriaxone. An Infectious Disease consultation has been obtained with Dr. Joel. We will follow recommendations of Infectious Disease. 2. Hypertension. Continue Cozaar and Coreg as above. 3. Start xarelto Gaytan,Tony MD Jul 29, 2019 19:39
[2019-07-29 20:00] VITALS: BP 99/51
[2019-07-29] MEDS: Vancomycin 1.25gm/NS Premix 275 ML IVPB SCH (23:15)
[2019-07-30] VITALS: BP 103/47
[2019-07-30 04:00] VITALS: BP 124/49
[2019-07-30] MEDS: Morphine Sulfate 2mg/ml Inj(IV/IM USE ONLY) IVP PRN ×3 (05:36→15:40)
[2019-07-30 05:45] LABS: BASOPHILS % (AUTO) 0.7 % (0.0-2.0); EOSINOPHILS % (AUTO) 4.2 % (0.0-3.0); HEMATOCRIT 29.8 % (37.0-47.0); HEMOGLOBIN 9.9 G/DL (12.0-16.0); MEAN CORPUSCULAR VOLUME 86 FL (80-99); MONOCYTES % (AUTO) 7.6 % (1.0-10.0); NEUTROPHILS % (AUTO) 68.6 % (45.0-75.0); PLATELET COUNT 224 K/UL (150-450); RED BLOOD COUNT 3.45 M/UL (4.20-5.40); RED CELL DISTRIBUTION WIDTH 12.8 % (11.6-14.8); WHITE BLOOD COUNT 10.8 K/UL (4.8-10.8)
[2019-07-30 06:06] LABS: ANION GAP 10 mmol/L (5-15); BLOOD UREA NITROGEN 19 mg/dL (7-18); CALCIUM 9.1 MG/DL (8.5-10.1); CARBON DIOXIDE 28 MMOL/L (21-32); CHLORIDE 100 MMOL/L (98-107); CREATININE 1.2 MG/DL (0.55-1.30); POTASSIUM 4.4 MMOL/L (3.5-5.1); SODIUM 138 MMOL/L (136-145)
--- NOTE | 2019-07-30 07:41 | Pulmonology Progress Note ---
Assessment/Plan Assessment/Plan ASSESSMENT Left lower extremity cellulitis Acute DVT left CFV and SFV Lymphedema Peripheral edema Morbid obesity Hypertension Mild pulmonary hypertension PLAN OF CARE MS floor abx as per ID venous Duplex+ acute DVr started on Xarelto monitor H&H with goal to keep Hgb above 7 anemia work-up noted stool OB negative CEA WNL continue IV Lasix with close monitoring of volumes and edema monitor renal parameters , correct electrolytes as needed BP management with BB and ARB podiatry input appreciated ; no need for any surgical intervention at this time; offload supportive care case discussed and evaluated by supervising physician Subjective Allergies: Coded Allergies: No Known Allergies (Unverified , 02/03/19) Subjective pulse ox stable on RA, remains afebrile Objective Last 24 Hour Vital Signs Date Time Temp Pulse Resp B/P (MAP) Pulse Ox O2 Delivery O2 Flow Rate FiO2 07/30/19 04:00 98.2 84 18 124/49 (74) 96 07/30/19 00:00 98.8 82 16 103/47 (65) 92 07/29/19 22:52 99.0 07/29/19 21:00 Room Air 07/29/19 20:00 98.9 84 18 99/51 (67) 100 07/29/19 17:27 89 123/68 07/29/19 16:00 99.0 84 18 122/61 (81) 98 07/29/19 12:00 98.6 76 18 123/64 (83) 95 07/29/19 09:24 144/66 07/29/19 09:24 85 144/66 07/29/19 09:00 Room Air 07/29/19 08:00 97.9 85 18 144/66 (92) 95 Intake and Output 07/29/19 07/30/19 19:00 07:00 Intake Total 800 ml 635 ml Output Total 800 ml Balance 800 ml -165 ml IV Total 275 ml Other 800 ml 360 ml Output Urine Total 800 ml General Appearance: no acute distress HEENT: normocephalic, atraumatic, anicteric Respiratory/Chest: lungs clear, no respiratory distress Cardiovascular: normal rate Abdomen: soft, non tender Extremities: other - edema VLE +3 , L>R Neurologic/Psychiatric: alert Musculoskeletal: atrophy - BLE Microbiology Date/Time Source Procedure Growth Status 07/28/19 17:08 Blood Blood Culture - Preliminary NO GROWTH AFTER 24 HOURS Resulted 07/28/19 17:00 Blood Blood Culture - Preliminary NO GROWTH AFTER 24 HOURS Resulted Laboratory Tests 07/29/19 23:07: Vancomycin Level Trough 16.0H 07/30/19 04:30: White Blood Count 10.8, Red Blood Count 3.45L, Hemoglobin 9.9L, Hematocrit 29.8L , Mean Corpuscular Volume 86, Mean Corpuscular Hemoglobin 28.7, Mean Corpuscular Hemoglobin Concent 33.3, Red Cell Distribution Width 12.8, Platelet Count 224, Mean Platelet Volume 5.7L, Neutrophils (%) (Auto) 68.6, Lymphocytes ( %) (Auto) 19.0L, Monocytes (%) (Auto) 7.6, Eosinophils (%) (Auto) 4.2H, Basophils (%) (Auto) 0.7, Sodium Level 138, Potassium Level 4.4, Chloride Level 100, Carbon Dioxide Level 28, Anion Gap 10, Blood Urea Nitrogen 19H, Creatinine 1.2, Estimat Glomerular Filtration Rate 52.0, Glucose Level 70L, Calcium Level 9.1 Current Medications Medications (Trade) Dose Ordered Sig/Christel Route PRN Reason Start Time Stop Time Status Last Admin Dose Admin Acetaminophen (Tylenol) 1,000 mg Q6H PRN ORAL Mild Pain/Temp > 100.5 07/26/19 22:00 08/25/19 21:59 07/26/19 22:33 Aspirin (Ecotrin) 81 mg DAILY ORAL 07/27/19 09:00 08/26/19 08:59 07/29/19 09:24 Carvedilol (Coreg) 25 mg BID ORAL 07/27/19 09:00 08/26/19 08:59 07/29/19 17:27 Furosemide (Lasix) 40 mg DAILY IV 07/27/19 09:00 08/26/19 08:59 07/29/19 09:25 Lorazepam (Ativan 2mg/ml 1ml) 2 mg Q4H PRN IV For Anxiety 07/29/19 12:15 08/05/19 12:14 Lorazepam (Ativan) 1 mg Q6H PRN ORAL For Anxiety 07/26/19 22:00 08/02/19 21:59 Losartan Potassium (Cozaar) 50 mg DAILY ORAL 07/27/19 09:00 08/26/19 08:59 07/29/19 09:24 Morphine Sulfate (Morphine Sulfate) 2 mg Q4H PRN IVP For severe Pain 07/29/19 15:15 08/05/19 15:14 07/30/19 05:36 Ondansetron HCl (Zofran) 4 mg Q4H PRN IVP Nausea & Vomiting 07/29/19 15:15 08/28/19 15:14 07/30/19 05:37 Rivaroxaban (Xarelto) 15 mg BID ORAL 07/27/19 18:00 08/17/19 09:01 07/29/19 17:25 Rivaroxaban (Xarelto) 20 mg DAILY ORAL 08/18/19 09:00 09/17/19 08:59 Tramadol HCl (Ultram) 50 mg Q6H PRN ORAL Severe Pain (Pain Scale 7-10) 07/26/19 22:00 08/02/19 21:59 07/29/19 12:39 Vancomycin HCl (Vanco rx to dose) 1 ea DAILY PRN MISC Per rx protocol 07/26/19 22:00 08/25/19 21:59 Vancomycin HCl 1 gm/Dextrose 275 ml @ 183.708 mls/hr Q24H IVPB 07/31/19 00:00 08/05/19 00:00 Tatyana Lucas NP Jul 30, 2019 07:41
--- NOTE | 2019-07-30 07:45 | NUR ---
HAND-OFF: Report given to ISHAN Henderson.
[2019-07-30 08:00] VITALS: BP 123/73
--- NOTE | 2019-07-30 08:20 | NUR ---
NURSE NOTES: Received patient in bed asleep. No SOB or acute distress. IV line intact. HOB elevated. Bed locked in lowest position. Call light within reach. Will continue plan of care.
[2019-07-30] MEDS: Xarelto 15mg tab ORAL SCH ×2 (08:33→17:24)
[2019-07-30] MEDS: Carvedilol 25mg Tab ORAL SCH ×2 (08:33→17:54)
[2019-07-30] MEDS: Aspirin EC 81mg tab ORAL SCH (08:33)
[2019-07-30] MEDS: traMADol 50mg tab ORAL PRN (08:33)
[2019-07-30] MEDS: Losartan 50mg tab ORAL SCH (08:34)
--- NOTE | 2019-07-30 11:35 | NUR ---
PT Note Acknowledged order for PT eval. Chart reviewed. Patient has acute DVT of the LLE. CN advised to hold off on PT till further orders.
[2019-07-30 12:00] VITALS: BP 113/51
--- NOTE | 2019-07-30 14:01 | Infectious Diseases Prog Note ---
Assessment/Plan Assessment/Plan ASSESSMENT: The patient is an 84-year-old female with Lower extremity lymphedema/cellulitis Left lower extremity edema. Normal white blood cells and afebrile DVT: Acute DVT in the left common femoral vein and superficial femoral vein Hypertension. Bilateral lymphedema PLAN: Continue the patient on IV vancomycin # 3 2 Sp Rocephin # 1 Monitor CBC Monitor BMP. Blood cultures. Subjective Allergies: Coded Allergies: No Known Allergies (Unverified , 02/03/19) Subjective afebrile no leukocytosis Bcx NTD Objective Vital Signs Last 24 Hour Vital Signs Date Time Temp Pulse Resp B/P (MAP) Pulse Ox O2 Delivery O2 Flow Rate FiO2 07/30/19 12:00 97.9 75 17 113/51 (71) 92 07/30/19 09:00 Room Air 07/30/19 08:34 123/73 07/30/19 08:33 86 123/73 07/30/19 08:00 98.0 86 18 123/73 (90) 99 07/30/19 04:00 98.2 84 18 124/49 (74) 96 07/30/19 00:00 98.8 82 16 103/47 (65) 92 07/29/19 22:52 99.0 07/29/19 21:00 Room Air 07/29/19 20:00 98.9 84 18 99/51 (67) 100 07/29/19 17:27 89 123/68 07/29/19 16:00 99.0 84 18 122/61 (81) 98 Height (Feet): 5 Height (Inches): 2.00 Weight (Pounds): 227 Objective GENERAL: The patient is a well-developed, well-nourished female, in no apparent distress. HEENT: Eyes, pupils equal and responsive to light and accommodation. Extraocular movements are intact. NECK: Supple without lymphadenopathy. CHEST: Lungs are clear to auscultation bilaterally without wheezes or rales. CARDIOVASCULAR: Regular rhythm and rate. S1, S2 normal without murmurs, rubs, or gallops. ABDOMEN: Soft, nontender, and nondistended. Positive bowel sounds. No evidence of hepatosplenomegaly. Currently, no rebound or guarding. EXTREMITIES: A 2+ pitting edema from the ankles to the knees bilaterally with erythema of the left anterior calf from the ankle to the knee, left greater than right. Microbiology Date/Time Source Procedure Growth Status 07/28/19 17:08 Blood Blood Culture - Preliminary NO GROWTH AFTER 24 HOURS Resulted 07/28/19 17:00 Blood Blood Culture - Preliminary NO GROWTH AFTER 24 HOURS Resulted Laboratory Tests Test 07/29/19 23:07 07/30/19 04:30 Vancomycin Level Trough 16.0 ug/mL (5.0-12.0) H White Blood Count 10.8 K/UL (4.8-10.8) Red Blood Count 3.45 M/UL (4.20-5.40) L Hemoglobin 9.9 G/DL (12.0-16.0) L Hematocrit 29.8 % (37.0-47.0) L Mean Corpuscular Volume 86 FL (80-99) Mean Corpuscular Hemoglobin 28.7 PG (27.0-31.0) Mean Corpuscular Hemoglobin Concent 33.3 G/DL (32.0-36.0) Red Cell Distribution Width 12.8 % (11.6-14.8) Platelet Count 224 K/UL (150-450) Mean Platelet Volume 5.7 FL (6.5-10.1) L Neutrophils (%) (Auto) 68.6 % (45.0-75.0) Lymphocytes (%) (Auto) 19.0 % (20.0-45.0) L Monocytes (%) (Auto) 7.6 % (1.0-10.0) Eosinophils (%) (Auto) 4.2 % (0.0-3.0) H Basophils (%) (Auto) 0.7 % (0.0-2.0) Sodium Level 138 MMOL/L (136-145) Potassium Level 4.4 MMOL/L (3.5-5.1) Chloride Level 100 MMOL/L (98-107) Carbon Dioxide Level 28 MMOL/L (21-32) Anion Gap 10 mmol/L (5-15) Blood Urea Nitrogen 19 mg/dL (7-18) H Creatinine 1.2 MG/DL (0.55-1.30) Estimat Glomerular Filtration Rate 52.0 mL/min (>60) Glucose Level 70 MG/DL (74-106) L Calcium Level 9.1 MG/DL (8.5-10.1) Current Medications Medications (Trade) Dose Ordered Sig/Christel Route PRN Reason Start Time Stop Time Status Last Admin Dose Admin Acetaminophen (Tylenol) 1,000 mg Q6H PRN ORAL Mild Pain/Temp > 100.5 07/26/19 22:00 08/25/19 21:59 07/26/19 22:33 Aspirin (Ecotrin) 81 mg DAILY ORAL 07/27/19 09:00 08/26/19 08:59 07/30/19 08:33 Carvedilol (Coreg) 25 mg BID ORAL 07/27/19 09:00 08/26/19 08:59 07/30/19 08:33 Furosemide (Lasix) 40 mg DAILY IV 07/27/19 09:00 08/26/19 08:59 07/30/19 08:34 Lorazepam (Ativan 2mg/ml 1ml) 2 mg Q4H PRN IV For Anxiety 07/29/19 12:15 08/05/19 12:14 Lorazepam (Ativan) 1 mg Q6H PRN ORAL For Anxiety 07/26/19 22:00 08/02/19 21:59 Losartan Potassium (Cozaar) 50 mg DAILY ORAL 07/27/19 09:00 08/26/19 08:59 07/30/19 08:34 Morphine Sulfate (Morphine Sulfate) 2 mg Q4H PRN IVP For severe Pain 07/29/19 15:15 08/05/19 15:14 07/30/19 10:23 Ondansetron HCl (Zofran) 4 mg Q4H PRN IVP Nausea & Vomiting 07/29/19 15:15 08/28/19 15:14 07/30/19 05:37 Rivaroxaban (Xarelto) 15 mg BID ORAL 07/27/19 18:00 08/17/19 09:01 07/30/19 08:33 Rivaroxaban (Xarelto) 20 mg DAILY ORAL 08/18/19 09:00 09/17/19 08:59 Tramadol HCl (Ultram) 50 mg Q6H PRN ORAL Severe Pain (Pain Scale 7-10) 07/26/19 22:00 08/02/19 21:59 07/30/19 08:33 Vancomycin HCl (Vanco rx to dose) 1 ea DAILY PRN MISC Per rx protocol 07/26/19 22:00 08/25/19 21:59 Vancomycin HCl 1 gm/Dextrose 275 ml @ 183.708 mls/hr Q24H IVPB 07/31/19 00:00 08/05/19 00:00 Izabella Cortez M.D. Jul 30, 2019 14:01
--- NOTE | 2019-07-30 14:30 | NUR ---
NURSE NOTES: Patient said she was feeling itchy on the left lateral leg. RN checked and found a skin tear measuring about 1cm x 1cm, dark pink, no active bleeding, no discharge. Reported to charge nurse and covered with hydrogel and optifoam. Will continue to monitor.
--- NOTE | 2019-07-30 14:33 | Internal Med Progress Note ---
Subjective Date of Service: Jul 30, 2019 Physician Name Gaytan,Tony Attending Physician Mark Jones MD Current Medications Medications (Trade) Dose Ordered Sig/Christel Route PRN Reason Start Time Stop Time Status Last Admin Dose Admin Acetaminophen (Tylenol) 1,000 mg Q6H PRN ORAL Mild Pain/Temp > 100.5 07/26/19 22:00 08/25/19 21:59 07/26/19 22:33 Aspirin (Ecotrin) 81 mg DAILY ORAL 07/27/19 09:00 08/26/19 08:59 07/30/19 08:33 Carvedilol (Coreg) 25 mg BID ORAL 07/27/19 09:00 08/26/19 08:59 07/30/19 08:33 Furosemide (Lasix) 40 mg DAILY IV 07/27/19 09:00 08/26/19 08:59 07/30/19 08:34 Lorazepam (Ativan 2mg/ml 1ml) 2 mg Q4H PRN IV For Anxiety 07/29/19 12:15 08/05/19 12:14 Lorazepam (Ativan) 1 mg Q6H PRN ORAL For Anxiety 07/26/19 22:00 08/02/19 21:59 Losartan Potassium (Cozaar) 50 mg DAILY ORAL 07/27/19 09:00 08/26/19 08:59 07/30/19 08:34 Morphine Sulfate (Morphine Sulfate) 2 mg Q4H PRN IVP For severe Pain 07/29/19 15:15 08/05/19 15:14 07/30/19 10:23 Ondansetron HCl (Zofran) 4 mg Q4H PRN IVP Nausea & Vomiting 07/29/19 15:15 08/28/19 15:14 07/30/19 05:37 Rivaroxaban (Xarelto) 15 mg BID ORAL 07/27/19 18:00 08/17/19 09:01 07/30/19 08:33 Rivaroxaban (Xarelto) 20 mg DAILY ORAL 08/18/19 09:00 09/17/19 08:59 Tramadol HCl (Ultram) 50 mg Q6H PRN ORAL Severe Pain (Pain Scale 7-10) 07/26/19 22:00 08/02/19 21:59 07/30/19 08:33 Vancomycin HCl (Vanco rx to dose) 1 ea DAILY PRN MISC Per rx protocol 07/26/19 22:00 08/25/19 21:59 Vancomycin HCl 1 gm/Dextrose 275 ml @ 183.708 mls/hr Q24H IVPB 07/31/19 00:00 08/05/19 00:00 Allergies: Coded Allergies: No Known Allergies (Unverified , 02/03/19) ROS Limited/Unobtainable: No Constitutional: Reports: no symptoms HEENT: Reports: no symptoms Cardiovascular: Reports: no symptoms Respiratory: Reports: no symptoms Gastrointestinal/Abdominal: Reports: no symptoms Genitourinary: Reports: no symptoms Neurologic/Psychiatric: Reports: no symptoms Subjective 84 YO F admitted with bilateral leg swelling and cellulitis bilat lower extremities. Now acute deep venous thrombosis left leg. Cover for Int Edgardo-Dr Jones Objective Last Vital Signs Date Time Temp Pulse Resp B/P (MAP) Pulse Ox O2 Delivery O2 Flow Rate FiO2 07/30/19 12:00 97.9 75 17 113/51 (71) 92 07/30/19 09:00 Room Air Laboratory Tests Test 07/29/19 23:07 07/30/19 04:30 Vancomycin Level Trough 16.0 ug/mL (5.0-12.0) H White Blood Count 10.8 K/UL (4.8-10.8) Red Blood Count 3.45 M/UL (4.20-5.40) L Hemoglobin 9.9 G/DL (12.0-16.0) L Hematocrit 29.8 % (37.0-47.0) L Mean Corpuscular Volume 86 FL (80-99) Mean Corpuscular Hemoglobin 28.7 PG (27.0-31.0) Mean Corpuscular Hemoglobin Concent 33.3 G/DL (32.0-36.0) Red Cell Distribution Width 12.8 % (11.6-14.8) Platelet Count 224 K/UL (150-450) Mean Platelet Volume 5.7 FL (6.5-10.1) L Neutrophils (%) (Auto) 68.6 % (45.0-75.0) Lymphocytes (%) (Auto) 19.0 % (20.0-45.0) L Monocytes (%) (Auto) 7.6 % (1.0-10.0) Eosinophils (%) (Auto) 4.2 % (0.0-3.0) H Basophils (%) (Auto) 0.7 % (0.0-2.0) Sodium Level 138 MMOL/L (136-145) Potassium Level 4.4 MMOL/L (3.5-5.1) Chloride Level 100 MMOL/L (98-107) Carbon Dioxide Level 28 MMOL/L (21-32) Anion Gap 10 mmol/L (5-15) Blood Urea Nitrogen 19 mg/dL (7-18) H Creatinine 1.2 MG/DL (0.55-1.30) Estimat Glomerular Filtration Rate 52.0 mL/min (>60) Glucose Level 70 MG/DL (74-106) L Calcium Level 9.1 MG/DL (8.5-10.1) Microbiology Date/Time Source Procedure Growth Status 07/28/19 17:08 Blood Blood Culture - Preliminary NO GROWTH AFTER 24 HOURS Resulted 07/28/19 17:00 Blood Blood Culture - Preliminary NO GROWTH AFTER 24 HOURS Resulted Intake and Output 07/29/19 07/30/19 19:00 07:00 Intake Total 800 ml 635 ml Output Total 800 ml Balance 800 ml -165 ml IV Total 275 ml Other 800 ml 360 ml Output Urine Total 800 ml Objective PHYSICAL EXAMINATION: GENERAL: The patient is a well-developed, well-nourished female, in no apparent distress. HEENT: Eyes, pupils equal and responsive to light and accommodation. Extraocular movements are intact. NECK: Supple without lymphadenopathy. CHEST: Lungs are clear to auscultation bilaterally without wheezes or rales. CARDIOVASCULAR: Regular rhythm and rate. S1, S2 normal without murmurs, rubs, or gallops. ABDOMEN: Soft, nontender, and nondistended. Positive bowel sounds. No evidence of hepatosplenomegaly. Currently, no rebound or guarding. EXTREMITIES: A 2+ pitting edema from the ankles to the knees bilaterally with erythema of the left anterior calf from the ankle to the knee, left greater than right. Assessment/Plan Assessment/Plan ASSESSMENT: This is an 84-year-old female: 1. Cellulitis of bilateral lower extremities. 2. Lymphedema bilateral lower extremities. 3. Bilateral leg pain. 4. Hypertension. 5. Acute deep venous thrombosis left common femoral to superficial femoral vein TREATMENT: 1. Cellulitis of the bilateral lower extremities. ABX= vancomycin and S/P ceftriaxone. An Infectious Disease consultation has been obtained with Dr. Joel. We will follow recommendations of Infectious Disease. 2. Hypertension. Continue Cozaar and Coreg as above. 3. Start Tony Valverde MD Jul 30, 2019 14:33
[2019-07-30 16:00] VITALS: BP 103/59
--- NOTE | 2019-07-30 19:41 | NUR ---
HAND-OFF: Report given to Artie.
--- NOTE | 2019-07-30 19:42 | NUR ---
NURSE NOTES: Pt. received from ISHAN Henderson. Pt AAOx4, on room air, no indications of pain and no signs of respiratory distress. IV site right wrist 24g, asymptomatic, intact, and patent; saline locked. Bed is low and locked, side rails x2 up, bed alarm active, and call light is in reach. Will continue to monitor.
[2019-07-30 20:00] VITALS: BP 116/55
[2019-07-31] VITALS: BP 120/63
[2019-07-31] MEDS ORDERED: Vancomycin 1gm/D5W 275ml IVPB SCH ×2
--- NOTE | 2019-07-31 01:23 | NUR ---
NURSE NOTES: Pt. awake at this time. No complaints of pain at this time, breathing is even and unlabored.
[2019-07-31 04:00] VITALS: BP 130/61
[2019-07-31] MEDS: Morphine Sulfate 2mg/ml Inj(IV/IM USE ONLY) IVP PRN (04:13)
[2019-07-31 07:23] LABS: BASOPHILS % (AUTO) 0.6 % (0.0-2.0); HEMATOCRIT 29.8 % (37.0-47.0); HEMOGLOBIN 9.8 G/DL (12.0-16.0); LYMPHOCYTES % (AUTO) 12.2 % (20.0-45.0); MEAN CORPUSCULAR VOLUME 87 FL (80-99); MONOCYTES % (AUTO) 7.5 % (1.0-10.0); NEUTROPHILS % (AUTO) 75.7 % (45.0-75.0); PLATELET COUNT 227 K/UL (150-450); RED BLOOD COUNT 3.45 M/UL (4.20-5.40); RED CELL DISTRIBUTION WIDTH 12.7 % (11.6-14.8)
--- NOTE | 2019-07-31 07:28 | NUR ---
HAND-OFF: Report given to ISHAN Obregon.
[2019-07-31 07:53] LABS: ANION GAP 6 mmol/L (5-15); BLOOD UREA NITROGEN 25 mg/dL (7-18); CALCIUM 9.1 MG/DL (8.5-10.1); CARBON DIOXIDE 32 MMOL/L (21-32); CHLORIDE 102 MMOL/L (98-107); CREATININE 1.7 MG/DL (0.55-1.30); POTASSIUM 4.2 MMOL/L (3.5-5.1); SODIUM 140 MMOL/L (136-145)
--- NOTE | 2019-07-31 07:54 | Pulmonology Progress Note ---
Assessment/Plan Assessment/Plan ASSESSMENT Left lower extremity cellulitis Acute DVT left CFV and SFV Lymphedema Peripheral edema Morbid obesity Hypertension Mild pulmonary hypertension PLAN OF CARE MS floor abx as per ID , BCX NGTD venous Duplex+ acute DVr started on Xarelto monitor H&H with goal to keep Hgb above 7 anemia work-up noted stool OB negative CEA WNL continue IV Lasix with close monitoring of volumes and edema monitor renal parameters , correct electrolytes as needed BP management with BB and ARB podiatry input appreciated ; no need for any surgical intervention at this time; offload supportive care case discussed and evaluated by supervising physician Subjective Allergies: Coded Allergies: No Known Allergies (Unverified , 02/03/19) Subjective pulse ox stable on RA, remains afebrile Objective Last 24 Hour Vital Signs Date Time Temp Pulse Resp B/P (MAP) Pulse Ox O2 Delivery O2 Flow Rate FiO2 07/31/19 04:43 98.2 07/31/19 04:00 98.5 89 20 130/61 (84) 97 07/31/19 00:00 98.2 79 21 120/63 (82) 96 07/30/19 21:00 Room Air 07/30/19 20:00 98.7 84 20 116/55 (75) 95 07/30/19 17:54 89 103/59 07/30/19 16:00 98.2 89 19 103/59 (74) 94 07/30/19 12:00 97.9 75 17 113/51 (71) 92 07/30/19 09:00 Room Air 07/30/19 08:34 123/73 07/30/19 08:33 86 123/73 07/30/19 08:00 98.0 86 18 123/73 (90) 99 Intake and Output 07/30/19 07/31/19 19:00 07:00 Intake Total 515.000 ml Output Total 500 ml Balance 15.000 ml Intake Oral 240 ml IV Total 275.000 ml Output Urine Total 500 ml # Voids 2 Objective General Appearance: no acute distress HEENT: normocephalic, atraumatic, anicteric Respiratory/Chest: lungs clear, no respiratory distress Cardiovascular: normal rate Abdomen: soft, non tender Extremities: other - edema VLE +3 , L>R Neurologic/Psychiatric: alert Musculoskeletal: atrophy - BLE Microbiology Date/Time Source Procedure Growth Status 07/28/19 17:08 Blood Blood Culture - Preliminary NO GROWTH AFTER 48 HOURS Resulted 07/28/19 17:00 Blood Blood Culture - Preliminary NO GROWTH AFTER 48 HOURS Resulted Laboratory Tests 07/31/19 06:05: White Blood Count [Pending], Red Blood Count [Pending], Hemoglobin [Pending], Hematocrit [Pending], Mean Corpuscular Volume [Pending], Mean Corpuscular Hemoglobin [Pending], Mean Corpuscular Hemoglobin Concent [Pending], Red Cell Distribution Width [Pending], Platelet Count [Pending], Mean Platelet Volume [ Pending], Neutrophils (%) (Auto) [Pending], Lymphocytes (%) (Auto) [Pending], Monocytes (%) (Auto) [Pending], Eosinophils (%) (Auto) [Pending], Basophils (%) (Auto) [Pending], Sodium Level [Pending], Potassium Level [Pending], Chloride Level [Pending], Carbon Dioxide Level [Pending], Blood Urea Nitrogen [Pending], Creatinine [Pending], Estimat Glomerular Filtration Rate [Pending], Glucose Level [Pending], Calcium Level [Pending] Current Medications Medications (Trade) Dose Ordered Sig/Christel Route PRN Reason Start Time Stop Time Status Last Admin Dose Admin Acetaminophen (Tylenol) 1,000 mg Q6H PRN ORAL Mild Pain/Temp > 100.5 07/26/19 22:00 08/25/19 21:59 07/26/19 22:33 Aspirin (Ecotrin) 81 mg DAILY ORAL 07/27/19 09:00 08/26/19 08:59 07/30/19 08:33 Carvedilol (Coreg) 25 mg BID ORAL 07/27/19 09:00 08/26/19 08:59 07/30/19 08:33 Furosemide (Lasix) 40 mg DAILY IV 07/27/19 09:00 08/26/19 08:59 07/30/19 08:34 Lorazepam (Ativan 2mg/ml 1ml) 2 mg Q4H PRN IV For Anxiety 07/29/19 12:15 08/05/19 12:14 Lorazepam (Ativan) 1 mg Q6H PRN ORAL For Anxiety 07/26/19 22:00 08/02/19 21:59 Losartan Potassium (Cozaar) 50 mg DAILY ORAL 07/27/19 09:00 08/26/19 08:59 07/30/19 08:34 Morphine Sulfate (Morphine Sulfate) 2 mg Q4H PRN IVP For severe Pain 07/29/19 15:15 08/05/19 15:14 07/31/19 04:13 Ondansetron HCl (Zofran) 4 mg Q4H PRN IVP Nausea & Vomiting 07/29/19 15:15 08/28/19 15:14 07/31/19 04:13 Rivaroxaban (Xarelto) 15 mg BID ORAL 07/27/19 18:00 08/17/19 09:01 07/30/19 17:24 Rivaroxaban (Xarelto) 20 mg DAILY ORAL 08/18/19 09:00 09/17/19 08:59 Tramadol HCl (Ultram) 50 mg Q6H PRN ORAL Severe Pain (Pain Scale 7-10) 07/26/19 22:00 08/02/19 21:59 07/30/19 08:33 Vancomycin HCl (Vanco rx to dose) 1 ea DAILY PRN MISC Per rx protocol 07/26/19 22:00 08/25/19 21:59 Vancomycin HCl 1 gm/Dextrose 275 ml @ 183.708 mls/hr Q24H IVPB 07/31/19 00:00 08/05/19 00:00 07/30/19 23:54 Tatyana Lucas CHART CHANGER Jul 31, 2019 07:54
--- NOTE | 2019-07-31 07:58 | NUR ---
NURSE NOTES: received patient in bed, awake, alert, no complaint of pain or discomfort, no signs of distress. R wrist IV access saline locked. Bed locked at lowest position possible, call light within easy reach, siderails up x2, on bed alarm. Will continue to monitor patient and follow up on the POC.
[2019-07-31 08:00] VITALS: BP 132/66
[2019-07-31] MEDS ORDERED: NS 275ml ONE (09:15)
[2019-07-31] MEDS ORDERED: Tubing IV Secondary IV ONE (09:15)
[2019-07-31] MEDS: Aspirin EC 81mg tab ORAL SCH (09:20)
[2019-07-31] MEDS: Xarelto 15mg tab ORAL SCH ×2 (09:20→17:58)
[2019-07-31] MEDS: Carvedilol 25mg Tab ORAL SCH ×2 (09:20→17:58)
[2019-07-31] MEDS: Losartan 50mg tab ORAL SCH (09:21)
[2019-07-31 12:00] VITALS: BP 126/75
--- NOTE | 2019-07-31 13:28 | Internal Med Progress Note ---
Subjective Date of Service: Jul 31, 2019 Physician Name LucilaTony Attending Physician Mark Jones MD Current Medications Medications (Trade) Dose Ordered Sig/Christel Route PRN Reason Start Time Stop Time Status Last Admin Dose Admin Acetaminophen (Tylenol) 1,000 mg Q6H PRN ORAL Mild Pain/Temp > 100.5 07/26/19 22:00 08/25/19 21:59 07/26/19 22:33 Aspirin (Ecotrin) 81 mg DAILY ORAL 07/27/19 09:00 08/26/19 08:59 07/31/19 09:20 Carvedilol (Coreg) 25 mg BID ORAL 07/27/19 09:00 08/26/19 08:59 07/31/19 09:20 Furosemide (Lasix) 40 mg DAILY IV 07/27/19 09:00 08/26/19 08:59 07/31/19 09:21 Lorazepam (Ativan 2mg/ml 1ml) 2 mg Q4H PRN IV For Anxiety 07/29/19 12:15 08/05/19 12:14 Lorazepam (Ativan) 1 mg Q6H PRN ORAL For Anxiety 07/26/19 22:00 08/02/19 21:59 Losartan Potassium (Cozaar) 50 mg DAILY ORAL 07/27/19 09:00 08/26/19 08:59 07/31/19 09:21 Morphine Sulfate (Morphine Sulfate) 2 mg Q4H PRN IVP For severe Pain 07/29/19 15:15 08/05/19 15:14 07/31/19 04:13 Ondansetron HCl (Zofran) 4 mg Q4H PRN IVP Nausea & Vomiting 07/29/19 15:15 08/28/19 15:14 07/31/19 04:13 Rivaroxaban (Xarelto) 15 mg BID ORAL 07/27/19 18:00 08/17/19 09:01 07/31/19 09:20 Rivaroxaban (Xarelto) 20 mg DAILY ORAL 08/18/19 09:00 09/17/19 08:59 Tramadol HCl (Ultram) 50 mg Q6H PRN ORAL Severe Pain (Pain Scale 7-10) 07/26/19 22:00 08/02/19 21:59 07/30/19 08:33 Vancomycin HCl (Vanco rx to dose) 1 ea DAILY PRN MISC Per rx protocol 07/26/19 22:00 08/25/19 21:59 Vancomycin HCl 1 gm/Dextrose 275 ml @ 183.708 mls/hr Q24H IVPB 07/31/19 00:00 08/05/19 00:00 07/30/19 23:54 Allergies: Coded Allergies: No Known Allergies (Unverified , 02/03/19) ROS Limited/Unobtainable: No Constitutional: Reports: no symptoms HEENT: Reports: no symptoms Cardiovascular: Reports: no symptoms Respiratory: Reports: no symptoms Gastrointestinal/Abdominal: Reports: no symptoms Genitourinary: Reports: no symptoms Neurologic/Psychiatric: Reports: no symptoms Subjective 84 YO F admitted with bilateral leg swelling and cellulitis bilat lower extremities. Now acute deep venous thrombosis left leg. Cover for Int Edgardo-Dr Jones Objective Last Vital Signs Date Time Temp Pulse Resp B/P (MAP) Pulse Ox O2 Delivery O2 Flow Rate FiO2 07/31/19 09:21 132/66 07/31/19 09:20 92 07/31/19 09:00 Room Air 07/31/19 08:00 98.7 20 98 Laboratory Tests Test 07/31/19 06:05 White Blood Count 12.0 K/UL (4.8-10.8) H Red Blood Count 3.45 M/UL (4.20-5.40) L Hemoglobin 9.8 G/DL (12.0-16.0) L Hematocrit 29.8 % (37.0-47.0) L Mean Corpuscular Volume 87 FL (80-99) Mean Corpuscular Hemoglobin 28.5 PG (27.0-31.0) Mean Corpuscular Hemoglobin Concent 32.9 G/DL (32.0-36.0) Red Cell Distribution Width 12.7 % (11.6-14.8) Platelet Count 227 K/UL (150-450) Mean Platelet Volume 6.2 FL (6.5-10.1) L Neutrophils (%) (Auto) 75.7 % (45.0-75.0) H Lymphocytes (%) (Auto) 12.2 % (20.0-45.0) L Monocytes (%) (Auto) 7.5 % (1.0-10.0) Eosinophils (%) (Auto) 4.0 % (0.0-3.0) H Basophils (%) (Auto) 0.6 % (0.0-2.0) Sodium Level 140 MMOL/L (136-145) Potassium Level 4.2 MMOL/L (3.5-5.1) Chloride Level 102 MMOL/L (98-107) Carbon Dioxide Level 32 MMOL/L (21-32) Anion Gap 6 mmol/L (5-15) Blood Urea Nitrogen 25 mg/dL (7-18) H Creatinine 1.7 MG/DL (0.55-1.30) H Estimat Glomerular Filtration Rate 34.8 mL/min (>60) Glucose Level 101 MG/DL (74-106) Calcium Level 9.1 MG/DL (8.5-10.1) Microbiology Date/Time Source Procedure Growth Status 07/28/19 17:08 Blood Blood Culture - Preliminary NO GROWTH AFTER 48 HOURS Resulted 07/28/19 17:00 Blood Blood Culture - Preliminary NO GROWTH AFTER 48 HOURS Resulted Intake and Output 07/30/19 07/31/19 19:00 07:00 Intake Total 515.000 ml Output Total 500 ml Balance 15.000 ml Intake Oral 240 ml IV Total 275.000 ml Output Urine Total 500 ml # Voids 2 Objective PHYSICAL EXAMINATION: GENERAL: The patient is a well-developed, well-nourished female, in no apparent distress. HEENT: Eyes, pupils equal and responsive to light and accommodation. Extraocular movements are intact. NECK: Supple without lymphadenopathy. CHEST: Lungs are clear to auscultation bilaterally without wheezes or rales. CARDIOVASCULAR: Regular rhythm and rate. S1, S2 normal without murmurs, rubs, or gallops. ABDOMEN: Soft, nontender, and nondistended. Positive bowel sounds. No evidence of hepatosplenomegaly. Currently, no rebound or guarding. EXTREMITIES: A 2+ pitting edema from the ankles to the knees bilaterally with erythema of the left anterior calf from the ankle to the knee, left greater than right. Assessment/Plan Assessment/Plan ASSESSMENT: This is an 84-year-old female: 1. Cellulitis of bilateral lower extremities. 2. Lymphedema bilateral lower extremities. 3. Bilateral leg pain. 4. Hypertension. 5. Acute deep venous thrombosis left common femoral to superficial femoral vein TREATMENT: 1. Cellulitis of the bilateral lower extremities. ABX= vancomycin and S/P ceftriaxone. An Infectious Disease consultation has been obtained with Dr. Joel. We will follow recommendations of Infectious Disease. 2. Hypertension. Continue Cozaar and Coreg as above. 3. Start xarelto 4. Discharge planning Tony Gaytan MD Jul 31, 2019 13:28
[2019-07-31 16:00] VITALS: BP 130/70
--- NOTE | 2019-07-31 19:40 | NUR ---
HAND-OFF: Report given to ISHAN Henry.
[2019-07-31 20:00] VITALS: BP 114/49
--- NOTE | 2019-07-31 20:00 | NUR ---
NURSE NOTES: Pt AAOx4, on room air, no c/o of pain at this time, no signs of respiratory distress. IV site right wrist 24g, asymptomatic, intact, and patent; saline locked. Skin tear noted on left chaves, no s/s of infection. Bed is low and locked, side rails x2 up, bed alarm active, and call light is in reach.
[2019-08-01] VITALS: BP 120/52
[2019-08-01 04:00] VITALS: BP 130/58
[2019-08-01 05:11] LABS: ANION GAP 7 mmol/L (5-15); BASOPHILS % (AUTO) 0.4 % (0.0-2.0); BLOOD UREA NITROGEN 30 mg/dL (7-18); CALCIUM 8.9 MG/DL (8.5-10.1); CARBON DIOXIDE 31 MMOL/L (21-32); CHLORIDE 103 MMOL/L (98-107); CREATININE 1.9 MG/DL (0.55-1.30); EOSINOPHILS % (AUTO) 4.3 % (0.0-3.0); HEMATOCRIT 28.3 % (37.0-47.0); HEMOGLOBIN 9.5 G/DL (12.0-16.0); LYMPHOCYTES % (AUTO) 13.9 % (20.0-45.0); MEAN CORPUSCULAR VOLUME 86 FL (80-99); MONOCYTES % (AUTO) 7.1 % (1.0-10.0); NEUTROPHILS % (AUTO) 74.3 % (45.0-75.0); PLATELET COUNT 216 K/UL (150-450); POTASSIUM 4.8 MMOL/L (3.5-5.1); RED CELL DISTRIBUTION WIDTH 12.5 % (11.6-14.8); SODIUM 141 MMOL/L (136-145); WHITE BLOOD COUNT 11.3 K/UL (4.8-10.8)
--- NOTE | 2019-08-01 07:25 | NUR ---
HAND-OFF: Report given to ISHAN Obregon.
--- NOTE | 2019-08-01 07:39 | NUR ---
NURSE NOTES: received patient in bed, asleep, no signs of distress. R wrist IV access saline locked. Bed locked at lowest position possible, call light within easy reach, siderails up x2, on bed alarm. Will continue to monitor patient and follow up on the POC.
[2019-08-01 08:00] VITALS: BP_SYST 134; BP_SYST 139; BP_DIAS 54; BP_DIAS 55
[2019-08-01] MEDS: Aspirin EC 81mg tab ORAL SCH (09:01)
[2019-08-01] MEDS: Carvedilol 25mg Tab ORAL SCH ×2 (09:02→17:38)
[2019-08-01] MEDS: Losartan 50mg tab ORAL SCH (09:02)
[2019-08-01] MEDS: Xarelto 15mg tab ORAL SCH ×2 (09:02→17:39)
--- NOTE | 2019-08-01 09:41 | Consultation ---
Consult Note Consult Note I was asked to evaluate the patient at the request of Dr Jones for rising serum creatinine. Patient was admitted 6 days ago and serum creatinine anju from 1 to 1.9. The patient is an 84-year-old female, who initially presented with a chief complaint of bilateral leg pain and swelling. The patient was admitted to [facility] in January 2019, for bilateral leg swelling. The patient was diagnosed with chronic lymphedema of bilateral lower extremities. The patient was initially transported to [facility] emergency room via EMS. The patient is transferred to [facility] for insurance purposes. Patient interviewed Patient examined Data reviewed . Assessment/Plan Acute renal failure as serum creatinine anju from 1 from the date of admission TO 1.9 today. Etiology is most likely overdiuresis and and partly treatment with vancomycin. Anemia. Other conditions: 1. Cellulitis of bilateral lower extremities. 2. Lymphedema bilateral lower extremities. 3. Bilateral leg pain. 4. Hypertension. 5. Acute deep venous thrombosis left common femoral to superficial femoral vein Suggestions: Hold Lasix. Kidney ultrasound. Urine analysis since none was done since admission. Monitor renal parameters. Chest x-ray. Monitor Vanco levels. Per orders. Ramiro Burger MD Aug 01, 2019 09:41
[2019-08-01 09:59] LABS: ALANINE AMINOTRANSFERASE 17 U/L (12-78); ALBUMIN 2.7 G/DL (3.4-5.0); ALKALINE PHOSPHATASE 53 U/L (46-116); ASPARTATE AMINO TRANSFERASE 15 U/L (15-37); BILIRUBIN,TOTAL 0.5 MG/DL (0.2-1.0); CHOLESTEROL 150 MG/DL (< 200); HDL CHOLESTEROL 52 MG/DL (40-60); PHOSPHORUS 3.7 MG/DL (2.5-4.9); TRIGLYCERIDES 70 MG/DL (30-150)
[2019-08-01 10:03] LABS: BILIRUBIN,DIRECT < 0.1 MG/DL (0.0-0.3)
[2019-08-01 10:31] LABS: % IRON SATURATION 9 % (15-50); IRON 18 ug/dL (50-175); TOTAL IRON BINDING CAPACITY 191 ug/dL (250-450)
--- NOTE | 2019-08-01 10:32 | NUR ---
P.T Note: P.T consult received. P.T evaluation completed and tx initiated. Please refer to P.T evaluation for current functional status and POC. Pt is alert,oriented to self/person, place and situation but not to time. Pt is pleasant and cooperative. Pt. presented c/o generalized weakness and B lower leg pain aggravated by touch pressure and movement. Pt currently require MOD A X 1 and extended time to turn/roll using the bed rail and mod-max a x 1 for supine to/from sitting. Pt was able to sit at the EOB w/o support however to weak and fatigued to stand and transfer. Pt will benefit from skilled P.T service to increase her strength and endurance to increase her activity tolerance , mobility independence and safety. Recommend SNF for further rehab intervention VS acute rehab at [facility].
[2019-08-01 10:44] LABS: FERRITIN 174 NG/ML (8-388)
[2019-08-01 12:00] VITALS: BP 123/53
[2019-08-01] MEDS ORDERED: Vancomycin 1gm/D5W 275ml IVPB SCH ×2 (12:00)
--- NOTE | 2019-08-01 12:39 | Diagnostic Imaging Report ---
Indication:Elevated Bun and Creatinine. Technique: Grayscale and duplex Doppler imaging of the kidneys performed. Comparison: None Findings: The size, contour, and echogenicity of both kidneys are within normal limits. There is no hydronephrosis.. The right kidney measures 9.1 cm. in length. The left kidney measures 9.7 cm. in length. There is a 5 mm cyst in the left kidney. The IVC is patent. Urinary bladder is unremarkable. IMPRESSION: Negative ultrasound the kidneys. 5 mm left renal cyst.
--- NOTE | 2019-08-01 13:11 | Pulmonology Progress Note ---
Assessment/Plan Problems: (1) ATN (acute tubular necrosis) (2) Cellulitis (3) Severe anemia (4) Peripheral edema (5) Elephantiasis (6) Mild pulmonary hypertension (7) Morbid obesity (8) History of hypertension Assessment/Plan renal studies check electrolytes f/u renal US wound care, iv abx podiatry monitor BP f/u stool for OB symptomatic treatment. Subjective ROS Limited/Unobtainable: No Interval Events: no new complains Allergies: Coded Allergies: No Known Allergies (Unverified , 02/03/19) Objective Last 24 Hour Vital Signs Date Time Temp Pulse Resp B/P (MAP) Pulse Ox O2 Delivery O2 Flow Rate FiO2 08/01/19 12:00 98.3 80 18 123/53 (76) 96 08/01/19 09:02 134/54 08/01/19 09:02 85 134/54 08/01/19 08:00 98.1 85 18 134/54 (80) 94 08/01/19 04:00 97.9 82 17 130/58 (82) 98 08/01/19 00:00 98.0 82 17 120/52 (74) 98 07/31/19 21:22 Room Air 07/31/19 20:00 98.2 79 19 114/49 (70) 98 07/31/19 17:58 88 130/70 07/31/19 16:00 98.3 88 19 130/70 (90) 98 Intake and Output 07/31/19 08/01/19 19:00 07:00 Intake Total 1000 ml Output Total 1150 ml Balance 1000 ml -1150 ml Intake Oral 1000 ml Output Urine Total 1150 ml # Voids 2 General Appearance: WD/WN HEENT: normocephalic, atraumatic Respiratory/Chest: chest wall non-tender, lungs clear Breasts: no masses Cardiovascular: normal peripheral pulses Abdomen: normal bowel sounds, non distended Extremities: no cyanosis Laboratory Tests 07/31/19 23:12: Vancomycin Level Trough 20.7H 08/01/19 04:15: White Blood Count 11.3H, Red Blood Count 3.30L, Hemoglobin 9.5L, Hematocrit 28.3L, Mean Corpuscular Volume 86, Mean Corpuscular Hemoglobin 28.6, Mean Corpuscular Hemoglobin Concent 33.4, Red Cell Distribution Width 12.5, Platelet Count 216, Mean Platelet Volume 5.2L, Neutrophils (%) (Auto) 74.3, Lymphocytes ( %) (Auto) 13.9L, Monocytes (%) (Auto) 7.1, Eosinophils (%) (Auto) 4.3H, Basophils (%) (Auto) 0.4, Sodium Level 141, Potassium Level 4.8, Chloride Level 103, Carbon Dioxide Level 31, Anion Gap 7, Blood Urea Nitrogen 30H, Creatinine 1.9H, Estimat Glomerular Filtration Rate 30.5, Glucose Level 81, Calcium Level 8.9 08/01/19 04:45: Hemoglobin A1c 5.8, Uric Acid 10.0H, Phosphorus Level 3.7, Magnesium Level 1.9, Iron Level 18L, Total Iron Binding Capacity 191L, Percent Iron Saturation 9L, Unsaturated Iron Binding 173, Ferritin 174, Total Bilirubin 0.5, Direct Bilirubin < 0.1, Aspartate Amino Transf (AST/SGOT) 15, Alanine Aminotransferase (ALT/SGPT) 17, Alkaline Phosphatase 53, C-Reactive Protein, Quantitative 17.4H, Total Protein 6.4, Albumin 2.7L, Triglycerides Level 70, Cholesterol Level 150, LDL Cholesterol 85, HDL Cholesterol 52, Cholesterol/HDL Ratio 2.9L, Vitamin B12 Level 294, Folate 7.2L Current Medications Medications (Trade) Dose Ordered Sig/Christel Route PRN Reason Start Time Stop Time Status Last Admin Dose Admin Acetaminophen (Tylenol) 1,000 mg Q6H PRN ORAL Mild Pain/Temp > 100.5 07/26/19 22:00 08/25/19 21:59 07/26/19 22:33 Aspirin (Ecotrin) 81 mg DAILY ORAL 07/27/19 09:00 08/26/19 08:59 08/01/19 09:01 Carvedilol (Coreg) 25 mg BID ORAL 07/27/19 09:00 08/26/19 08:59 08/01/19 09:02 Docusate Sodium (Colace) 100 mg THREE TIMES A DAY ORAL 08/01/19 13:00 08/31/19 12:59 Folic Acid (Folate) 1 mg DAILY ORAL 08/01/19 10:00 08/31/19 09:59 Lorazepam (Ativan 2mg/ml 1ml) 2 mg Q4H PRN IV For Anxiety 07/29/19 12:15 08/05/19 12:14 Lorazepam (Ativan) 1 mg Q6H PRN ORAL For Anxiety 07/26/19 22:00 08/02/19 21:59 Losartan Potassium (Cozaar) 50 mg DAILY ORAL 07/27/19 09:00 08/26/19 08:59 08/01/19 09:02 Morphine Sulfate (Morphine Sulfate) 2 mg Q4H PRN IVP For severe Pain 07/29/19 15:15 08/05/19 15:14 07/31/19 04:13 Ondansetron HCl (Zofran) 4 mg Q4H PRN IVP Nausea & Vomiting 07/29/19 15:15 08/28/19 15:14 07/31/19 04:13 Pantoprazole (Protonix) 40 mg EVERY 12 HOURS ORAL 08/01/19 21:00 08/31/19 20:59 Rivaroxaban (Xarelto) 15 mg BID ORAL 07/27/19 18:00 08/17/19 09:01 08/01/19 09:02 Rivaroxaban (Xarelto) 20 mg DAILY ORAL 08/18/19 09:00 09/17/19 08:59 Tramadol HCl (Ultram) 50 mg Q6H PRN ORAL Severe Pain (Pain Scale 7-10) 07/26/19 22:00 08/02/19 21:59 07/30/19 08:33 Vancomycin HCl (Vanco rx to dose) 1 ea DAILY PRN MISC Per rx protocol 07/26/19 22:00 08/25/19 21:59 Vancomycin HCl 1 gm/Dextrose 275 ml @ 183.708 mls/hr Q36H IVPB 08/01/19 12:00 08/05/19 00:00 Mone Newton MD Aug 01, 2019 13:11
--- NOTE | 2019-08-01 13:31 | Infectious Diseases Prog Note ---
Assessment/Plan Assessment/Plan ASSESSMENT: The patient is an 84-year-old female with Lower extremity lymphedema/cellulitis Left lower extremity edema. Normal white blood cells and afebrile ALEXANDRA DVT: Acute DVT in the left common femoral vein and superficial femoral vein Hypertension. Bilateral lymphedema PLAN: Continue the patient on IV Datpo # 1 and DC IV Vancomycin # 5 ( ALEXANDRA ) 07/28 Sp Rocephin # 1 Monitor CBC Monitor BMP. Blood cultures. Subjective Allergies: Coded Allergies: No Known Allergies (Unverified , 02/03/19) Subjective comfortable no acute event Objective Vital Signs Last 24 Hour Vital Signs Date Time Temp Pulse Resp B/P (MAP) Pulse Ox O2 Delivery O2 Flow Rate FiO2 08/01/19 12:00 98.3 80 18 123/53 (76) 96 08/01/19 09:02 134/54 08/01/19 09:02 85 134/54 08/01/19 08:00 98.1 85 18 134/54 (80) 94 08/01/19 04:00 97.9 82 17 130/58 (82) 98 08/01/19 00:00 98.0 82 17 120/52 (74) 98 07/31/19 21:22 Room Air 07/31/19 20:00 98.2 79 19 114/49 (70) 98 07/31/19 17:58 88 130/70 07/31/19 16:00 98.3 88 19 130/70 (90) 98 Height (Feet): 5 Height (Inches): 2.00 Weight (Pounds): 227 Respiratory/Chest: normal breath sounds Cardiovascular: regular rhythm Abdomen: soft, non tender Laboratory Tests Test 07/31/19 23:12 08/01/19 04:15 08/01/19 04:45 Vancomycin Level Trough 20.7 ug/mL (5.0-12.0) H White Blood Count 11.3 K/UL (4.8-10.8) H Red Blood Count 3.30 M/UL (4.20-5.40) L Hemoglobin 9.5 G/DL (12.0-16.0) L Hematocrit 28.3 % (37.0-47.0) L Mean Corpuscular Volume 86 FL (80-99) Mean Corpuscular Hemoglobin 28.6 PG (27.0-31.0) Mean Corpuscular Hemoglobin Concent 33.4 G/DL (32.0-36.0) Red Cell Distribution Width 12.5 % (11.6-14.8) Platelet Count 216 K/UL (150-450) Mean Platelet Volume 5.2 FL (6.5-10.1) L Neutrophils (%) (Auto) 74.3 % (45.0-75.0) Lymphocytes (%) (Auto) 13.9 % (20.0-45.0) L Monocytes (%) (Auto) 7.1 % (1.0-10.0) Eosinophils (%) (Auto) 4.3 % (0.0-3.0) H Basophils (%) (Auto) 0.4 % (0.0-2.0) Sodium Level 141 MMOL/L (136-145) Potassium Level 4.8 MMOL/L (3.5-5.1) Chloride Level 103 MMOL/L (98-107) Carbon Dioxide Level 31 MMOL/L (21-32) Anion Gap 7 mmol/L (5-15) Blood Urea Nitrogen 30 mg/dL (7-18) H Creatinine 1.9 MG/DL (0.55-1.30) H Estimat Glomerular Filtration Rate 30.5 mL/min (>60) Glucose Level 81 MG/DL (74-106) Calcium Level 8.9 MG/DL (8.5-10.1) Hemoglobin A1c 5.8 % (4.3-6.0) Uric Acid 10.0 MG/DL (2.6-7.2) H Phosphorus Level 3.7 MG/DL (2.5-4.9) Magnesium Level 1.9 MG/DL (1.8-2.4) Iron Level 18 ug/dL (50-175) L Total Iron Binding Capacity 191 ug/dL (250-450) L Percent Iron Saturation 9 % (15-50) L Unsaturated Iron Binding 173 ug/dL (112-346) Ferritin 174 NG/ML (8-388) Total Bilirubin 0.5 MG/DL (0.2-1.0) Direct Bilirubin < 0.1 MG/DL (0.0-0.3) Aspartate Amino Transf (AST/SGOT) 15 U/L (15-37) Alanine Aminotransferase (ALT/SGPT) 17 U/L (12-78) Alkaline Phosphatase 53 U/L (46-116) C-Reactive Protein, Quantitative 17.4 mg/dL (0.00-0.90) H Total Protein 6.4 G/DL (6.4-8.2) Albumin 2.7 G/DL (3.4-5.0) L Triglycerides Level 70 MG/DL (30-150) Cholesterol Level 150 MG/DL (< 200) LDL Cholesterol 85 mg/dL (<100) HDL Cholesterol 52 MG/DL (40-60) Cholesterol/HDL Ratio 2.9 (3.3-4.4) L Vitamin B12 Level 294 PG/ML (193-986) Folate 7.2 NG/ML (8.6-58.9) L Current Medications Medications (Trade) Dose Ordered Sig/Christel Route PRN Reason Start Time Stop Time Status Last Admin Dose Admin Acetaminophen (Tylenol) 1,000 mg Q6H PRN ORAL Mild Pain/Temp > 100.5 07/26/19 22:00 08/25/19 21:59 07/26/19 22:33 Aspirin (Ecotrin) 81 mg DAILY ORAL 07/27/19 09:00 08/26/19 08:59 08/01/19 09:01 Carvedilol (Coreg) 25 mg BID ORAL 07/27/19 09:00 08/26/19 08:59 08/01/19 09:02 Docusate Sodium (Colace) 100 mg THREE TIMES A DAY ORAL 08/01/19 13:00 08/31/19 12:59 Folic Acid (Folate) 1 mg DAILY ORAL 08/01/19 10:00 08/31/19 09:59 Lorazepam (Ativan 2mg/ml 1ml) 2 mg Q4H PRN IV For Anxiety 07/29/19 12:15 08/05/19 12:14 Lorazepam (Ativan) 1 mg Q6H PRN ORAL For Anxiety 07/26/19 22:00 08/02/19 21:59 Losartan Potassium (Cozaar) 50 mg DAILY ORAL 07/27/19 09:00 08/26/19 08:59 08/01/19 09:02 Morphine Sulfate (Morphine Sulfate) 2 mg Q4H PRN IVP For severe Pain 07/29/19 15:15 08/05/19 15:14 07/31/19 04:13 Ondansetron HCl (Zofran) 4 mg Q4H PRN IVP Nausea & Vomiting 07/29/19 15:15 08/28/19 15:14 07/31/19 04:13 Pantoprazole (Protonix) 40 mg EVERY 12 HOURS ORAL 08/01/19 21:00 08/31/19 20:59 Rivaroxaban (Xarelto) 15 mg BID ORAL 07/27/19 18:00 08/17/19 09:01 08/01/19 09:02 Rivaroxaban (Xarelto) 20 mg DAILY ORAL 08/18/19 09:00 09/17/19 08:59 Tramadol HCl (Ultram) 50 mg Q6H PRN ORAL Severe Pain (Pain Scale 7-10) 07/26/19 22:00 08/02/19 21:59 07/30/19 08:33 Vancomycin HCl (Vanco rx to dose) 1 ea DAILY PRN MISC Per rx protocol 07/26/19 22:00 08/25/19 21:59 Vancomycin HCl 1 gm/Dextrose 275 ml @ 183.708 mls/hr Q36H IVPB 08/01/19 12:00 08/05/19 00:00 Johnnie Joel MD Aug 01, 2019 13:31
[2019-08-01] MEDS: Docusate 100mg cap ORAL SCH ×2 (14:05→17:38)
--- NOTE | 2019-08-01 14:17 | Diagnostic Imaging Report ---
Indication: Dyspnea Comparison: 02/03/2019 A single view chest radiograph was obtained. Findings: There are surgical clips in the left axilla. The heart is enlarged. Lungs are clear. Aorta is mildly calcified. Bones are osteopenic. IMPRESSION: No significant change. No acute findings
[2019-08-01 16:00] VITALS: BP 148/59
--- NOTE | 2019-08-01 17:25 | NUR ---
CASE MANAGEMENT:REVIEW SI;BLE CELLULITIS. BLE LYMPHEDEMA. BLL PAIN. LLE AC DEEP VENOUS THROMBOSIS. 98.3 85 18 134/54 94% ON RA WBC 11.3 H/H 9.5/29.3 UR ACID 10.0 BUN 30 CR 1.9 IS;XARELTO PO QD IRON SUCROSE IV ONCE DAPTOMYCIN IV Q48 HRS PROTONIX PO Q12 HRS COREG PO BID COZAAR PO QD MED SURG STATUS DCP;SNF PLACEMENT VS ARU
--- NOTE | 2019-08-01 17:45 | NUR ---
CASE MANAGEMENT NOTE SPOKE WITH PATIENT AT BEDSIDE. STATES SHE CURRENTLY RESIDES ALONE. ANTICIPATING FOR SOMEONE TO MOVE IN TO BE ABLE TO ASSIST WITH HER CARE. INFORMED OF MD ORDER FOR ARU VS SNF. PATIENT IN AGREEMENT FOR PLACEMENT. STATES SHE PREFERS SNF PLACEMENT AT THIS TIME FOR PT REHAB.
[2019-08-01] MEDS ORDERED: Iron Sucrose 200 MG in NS 110 ML IV ONE (18:30)
[2019-08-01] MEDS: DAPTOmycin 400 MG in NS 55 ML IV SCH (18:50)
--- NOTE | 2019-08-01 19:36 | Internal Med Progress Note ---
Subjective Date of Service: Aug 01, 2019 Physician Name LucilaTony Attending Physician Mark Jones MD Current Medications Medications (Trade) Dose Ordered Sig/Christel Route PRN Reason Start Time Stop Time Status Last Admin Dose Admin Acetaminophen (Tylenol) 1,000 mg Q6H PRN ORAL Mild Pain/Temp > 100.5 07/26/19 22:00 08/25/19 21:59 07/26/19 22:33 Aspirin (Ecotrin) 81 mg DAILY ORAL 07/27/19 09:00 08/26/19 08:59 08/01/19 09:01 Carvedilol (Coreg) 25 mg BID ORAL 07/27/19 09:00 08/26/19 08:59 08/01/19 17:38 Daptomycin 400 mg/ Sodium Chloride 55 ml @ 100 mls/hr Q48H IV 08/01/19 18:00 08/08/19 17:59 08/01/19 18:50 Docusate Sodium (Colace) 100 mg THREE TIMES A DAY ORAL 08/01/19 13:00 08/31/19 12:59 08/01/19 17:38 Folic Acid (Folate) 1 mg DAILY ORAL 08/01/19 10:00 08/31/19 09:59 08/01/19 14:05 Lorazepam (Ativan 2mg/ml 1ml) 2 mg Q4H PRN IV For Anxiety 07/29/19 12:15 08/05/19 12:14 Lorazepam (Ativan) 1 mg Q6H PRN ORAL For Anxiety 07/26/19 22:00 08/02/19 21:59 Losartan Potassium (Cozaar) 50 mg DAILY ORAL 07/27/19 09:00 08/26/19 08:59 08/01/19 09:02 Morphine Sulfate (Morphine Sulfate) 2 mg Q4H PRN IVP For severe Pain 07/29/19 15:15 08/05/19 15:14 07/31/19 04:13 Ondansetron HCl (Zofran) 4 mg Q4H PRN IVP Nausea & Vomiting 07/29/19 15:15 08/28/19 15:14 07/31/19 04:13 Pantoprazole (Protonix) 40 mg EVERY 12 HOURS ORAL 08/01/19 21:00 08/31/19 20:59 Rivaroxaban (Xarelto) 15 mg BID ORAL 07/27/19 18:00 08/17/19 09:01 08/01/19 17:39 Rivaroxaban (Xarelto) 20 mg DAILY ORAL 08/18/19 09:00 09/17/19 08:59 Tramadol HCl (Ultram) 50 mg Q6H PRN ORAL Severe Pain (Pain Scale 7-10) 07/26/19 22:00 08/02/19 21:59 07/30/19 08:33 Allergies: Coded Allergies: No Known Allergies (Unverified , 02/03/19) ROS Limited/Unobtainable: No Constitutional: Reports: no symptoms HEENT: Reports: no symptoms Cardiovascular: Reports: no symptoms Respiratory: Reports: no symptoms Gastrointestinal/Abdominal: Reports: no symptoms Genitourinary: Reports: no symptoms Neurologic/Psychiatric: Reports: no symptoms Subjective 84 YO F admitted with bilateral leg swelling and cellulitis bilat lower extremities. Now acute deep venous thrombosis left leg. Cover for Int Edgardo-Dr Jones Objective Last Vital Signs Date Time Temp Pulse Resp B/P (MAP) Pulse Ox O2 Delivery O2 Flow Rate FiO2 08/01/19 17:38 81 148/59 08/01/19 16:00 98.6 18 94 08/01/19 09:00 Room Air Laboratory Tests Test 07/31/19 23:12 08/01/19 04:15 08/01/19 04:45 Vancomycin Level Trough 20.7 ug/mL (5.0-12.0) H White Blood Count 11.3 K/UL (4.8-10.8) H Red Blood Count 3.30 M/UL (4.20-5.40) L Hemoglobin 9.5 G/DL (12.0-16.0) L Hematocrit 28.3 % (37.0-47.0) L Mean Corpuscular Volume 86 FL (80-99) Mean Corpuscular Hemoglobin 28.6 PG (27.0-31.0) Mean Corpuscular Hemoglobin Concent 33.4 G/DL (32.0-36.0) Red Cell Distribution Width 12.5 % (11.6-14.8) Platelet Count 216 K/UL (150-450) Mean Platelet Volume 5.2 FL (6.5-10.1) L Neutrophils (%) (Auto) 74.3 % (45.0-75.0) Lymphocytes (%) (Auto) 13.9 % (20.0-45.0) L Monocytes (%) (Auto) 7.1 % (1.0-10.0) Eosinophils (%) (Auto) 4.3 % (0.0-3.0) H Basophils (%) (Auto) 0.4 % (0.0-2.0) Sodium Level 141 MMOL/L (136-145) Potassium Level 4.8 MMOL/L (3.5-5.1) Chloride Level 103 MMOL/L (98-107) Carbon Dioxide Level 31 MMOL/L (21-32) Anion Gap 7 mmol/L (5-15) Blood Urea Nitrogen 30 mg/dL (7-18) H Creatinine 1.9 MG/DL (0.55-1.30) H Estimat Glomerular Filtration Rate 30.5 mL/min (>60) Glucose Level 81 MG/DL (74-106) Calcium Level 8.9 MG/DL (8.5-10.1) Hemoglobin A1c 5.8 % (4.3-6.0) Uric Acid 10.0 MG/DL (2.6-7.2) H Phosphorus Level 3.7 MG/DL (2.5-4.9) Magnesium Level 1.9 MG/DL (1.8-2.4) Iron Level 18 ug/dL (50-175) L Total Iron Binding Capacity 191 ug/dL (250-450) L Percent Iron Saturation 9 % (15-50) L Unsaturated Iron Binding 173 ug/dL (112-346) Ferritin 174 NG/ML (8-388) Total Bilirubin 0.5 MG/DL (0.2-1.0) Direct Bilirubin < 0.1 MG/DL (0.0-0.3) Aspartate Amino Transf (AST/SGOT) 15 U/L (15-37) Alanine Aminotransferase (ALT/SGPT) 17 U/L (12-78) Alkaline Phosphatase 53 U/L (46-116) C-Reactive Protein, Quantitative 17.4 mg/dL (0.00-0.90) H Total Protein 6.4 G/DL (6.4-8.2) Albumin 2.7 G/DL (3.4-5.0) L Triglycerides Level 70 MG/DL (30-150) Cholesterol Level 150 MG/DL (< 200) LDL Cholesterol 85 mg/dL (<100) HDL Cholesterol 52 MG/DL (40-60) Cholesterol/HDL Ratio 2.9 (3.3-4.4) L Vitamin B12 Level 294 PG/ML (193-986) Folate 7.2 NG/ML (8.6-58.9) L Intake and Output 07/31/19 08/01/19 19:00 07:00 Intake Total 1000 ml Output Total 1150 ml Balance 1000 ml -1150 ml Intake Oral 1000 ml Output Urine Total 1150 ml # Voids 2 Objective PHYSICAL EXAMINATION: GENERAL: The patient is a well-developed, well-nourished female, in no apparent distress. HEENT: Eyes, pupils equal and responsive to light and accommodation. Extraocular movements are intact. NECK: Supple without lymphadenopathy. CHEST: Lungs are clear to auscultation bilaterally without wheezes or rales. CARDIOVASCULAR: Regular rhythm and rate. S1, S2 normal without murmurs, rubs, or gallops. ABDOMEN: Soft, nontender, and nondistended. Positive bowel sounds. No evidence of hepatosplenomegaly. Currently, no rebound or guarding. EXTREMITIES: A 2+ pitting edema from the ankles to the knees bilaterally with erythema of the left anterior calf from the ankle to the knee, left greater than right. Assessment/Plan Assessment/Plan ASSESSMENT: This is an 84-year-old female: 1. Cellulitis of bilateral lower extremities. 2. Lymphedema bilateral lower extremities. 3. Bilateral leg pain. 4. Hypertension. 5. Acute deep venous thrombosis left common femoral to superficial femoral vein TREATMENT: 1. Cellulitis of the bilateral lower extremities. ABX= vancomycin and S/P ceftriaxone. An Infectious Disease consultation has been obtained with Dr. Joel. We will follow recommendations of Infectious Disease. 2. Hypertension. Continue Cozaar and Coreg as above. 3. Start xarelto 4. Discharge planning : snf fac Tony Gaytan MD Aug 01, 2019 19:36
[2019-08-01 20:00] VITALS: BP 129/59
--- NOTE | 2019-08-01 20:02 | NUR ---
NURSE NOTES: Received patient awake, alert, verbal, resting in bed, comfortable, kept clean and dry.
[2019-08-02 00:23] VITALS: BP 118/76
[2019-08-02 04:26] VITALS: BP 134/56
[2019-08-02 06:38] LABS: BASOPHILS % (AUTO) 0.8 % (0.0-2.0); EOSINOPHILS % (AUTO) 3.6 % (0.0-3.0); HEMATOCRIT 29.3 % (37.0-47.0); HEMOGLOBIN 9.9 G/DL (12.0-16.0); LYMPHOCYTES % (AUTO) 13.3 % (20.0-45.0); MEAN CORPUSCULAR VOLUME 86 FL (80-99); MONOCYTES % (AUTO) 5.4 % (1.0-10.0); NEUTROPHILS % (AUTO) 76.9 % (45.0-75.0); PLATELET COUNT 255 K/UL (150-450); RED BLOOD COUNT 3.41 M/UL (4.20-5.40); RED CELL DISTRIBUTION WIDTH 12.5 % (11.6-14.8)
[2019-08-02 06:48] LABS: ALANINE AMINOTRANSFERASE 17 U/L (12-78); ALBUMIN 2.5 G/DL (3.4-5.0); ALBUMIN/GLOBULIN RATIO 0.6 (1.0-2.7); ALKALINE PHOSPHATASE 62 U/L (46-116); ANION GAP 12 mmol/L (5-15); ASPARTATE AMINO TRANSFERASE 15 U/L (15-37); BILIRUBIN,TOTAL 0.6 MG/DL (0.2-1.0); BLOOD UREA NITROGEN 26 mg/dL (7-18); CALCIUM 9.6 MG/DL (8.5-10.1); CARBON DIOXIDE 30 MMOL/L (21-32); CHLORIDE 107 MMOL/L (98-107); CREATININE 1.5 MG/DL (0.55-1.30); POTASSIUM 4.2 MMOL/L (3.5-5.1); SODIUM 148 MMOL/L (136-145)
--- NOTE | 2019-08-02 07:11 | NUR ---
HAND-OFF: Report given to Nacho Shelby RN.
[2019-08-02 07:13] LABS: PHOSPHORUS 3.4 MG/DL (2.5-4.9)
--- NOTE | 2019-08-02 07:56 | NUR ---
NURSE NOTES: PT IS AXOX3, CALM, EATING BREAKFAST IN BED. DENIES PAIN OR N/V AT THIS TIME. PT EDUCATED ON PLAN FOR TODAY. PT VERBALIZED UNDERSTANDING. LEFT LEG WITH NON-PITTING EDEMA, ELEVATED ON PILLOW. PT EDUCATED ON KEEPING LEG ELEVATED. IN NO APPARENT DISTRESS AT THIS TIME. BED IN LOWEST POSITION WITH BEDSIDE RAILS X3 RAISED. EDUCATED ON FALL PRECAUTIONS. CALL LIGHT WITHIN REACH. WILL CONTINUE TO MONITOR.
[2019-08-02 07:59] VITALS: BP 136/56
[2019-08-02] MEDS: Aspirin EC 81mg tab ORAL SCH (08:25)
[2019-08-02] MEDS: Carvedilol 25mg Tab ORAL SCH ×2 (08:25→17:43)
[2019-08-02] MEDS: Xarelto 15mg tab ORAL SCH ×2 (08:26→17:42)
[2019-08-02] MEDS: Losartan 50mg tab ORAL SCH (08:26)
[2019-08-02] MEDS: Docusate 100mg cap ORAL SCH ×3 (08:26→17:43)
--- NOTE | 2019-08-02 11:19 | Nephrology Progress Note ---
Assessment/Plan Problem List: (1) Acute on chronic diastolic congestive heart failure Assessment: Cr lower today (2) Morbid obesity (3) Peripheral edema (4) Elephantiasis Assessment Acute renal failure as serum creatinine anju from 1 from the date of admission TO 1.9 today. Etiology is most likely overdiuresis and and partly treatment with vancomycin. Anemia. Other conditions: 1. Cellulitis of bilateral lower extremities. 2. Lymphedema bilateral lower extremities. 3. Bilateral leg pain. 4. Hypertension. 5. Acute deep venous thrombosis left common femoral to superficial femoral vein Plan Hold Lasix. Kidney ultrasound. Negative ultrasound the kidneys. 5 mm left renal cyst. Urine analysis since none was done since admission. still pending Monitor renal parameters. Chest x-ray. Monitor Vanco levels. trial Folic-B12- Venofer Per orders. Subjective ROS Limited/Unobtainable: No Constitutional: Reports: malaise Objective Objective Last 24 Hour Vital Signs Date Time Temp Pulse Resp B/P (MAP) Pulse Ox O2 Delivery O2 Flow Rate FiO2 08/02/19 09:00 Room Air 08/02/19 08:26 136/56 08/02/19 08:25 79 136/56 08/02/19 07:59 98.1 79 18 136/56 (82) 94 08/02/19 04:26 97.9 77 21 134/56 (82) 94 08/02/19 00:23 97.6 81 20 118/76 (90) 99 08/01/19 21:23 Room Air 08/01/19 20:00 98.1 72 21 129/59 (82) 95 08/01/19 17:38 81 148/59 08/01/19 16:00 98.6 81 18 148/59 (88) 94 08/01/19 12:00 98.3 80 18 123/53 (76) 96 Intake and Output 08/01/19 08/02/19 19:00 07:00 Intake Total 480 ml 120 ml Output Total 400 ml 450 ml Balance 80 ml -330 ml Intake Oral 480 ml IV Total 120 ml Output Urine Total 400 ml 450 ml # Voids 2 Laboratory Tests 08/02/19 05:00: White Blood Count 13.0H, Red Blood Count 3.41L, Hemoglobin 9.9L, Hematocrit 29.3L, Mean Corpuscular Volume 86, Mean Corpuscular Hemoglobin 28.9, Mean Corpuscular Hemoglobin Concent 33.7, Red Cell Distribution Width 12.5, Platelet Count 255, Mean Platelet Volume 5.7L, Neutrophils (%) (Auto) 76.9H, Lymphocytes (%) (Auto) 13.3L, Monocytes (%) (Auto) 5.4, Eosinophils (%) (Auto) 3.6H, Basophils (%) (Auto) 0.8, Erythrocyte Sedimentation Rate 79H, Sodium Level 148H , Potassium Level 4.2, Chloride Level 107, Carbon Dioxide Level 30, Anion Gap 12 , Blood Urea Nitrogen 26H, Creatinine 1.5H, Estimat Glomerular Filtration Rate 40.2, Glucose Level 100, Calcium Level 9.6, Phosphorus Level 3.4, Magnesium Level 2.0, Total Bilirubin 0.6, Aspartate Amino Transf (AST/SGOT) 15, Alanine Aminotransferase (ALT/SGPT) 17, Alkaline Phosphatase 62, C-Reactive Protein, Quantitative 16.6H, Total Protein 6.6, Albumin 2.5L, Globulin 4.1, Albumin/ Globulin Ratio 0.6L Height (Feet): 5 Height (Inches): 2.00 Weight (Pounds): 227 General Appearance: no apparent distress Cardiovascular: normal rate Respiratory/Chest: decreased breath sounds Abdomen: soft Extremities: other - edema Ramiro Burger MD Aug 02, 2019 11:19
[2019-08-02] MEDS ORDERED: Vitamin B12 1000mcg/ml Inj SUBQ SCH (11:30)
[2019-08-02 12:00] VITALS: BP 142/61
--- NOTE | 2019-08-02 12:37 | Pulmonology Progress Note ---
Assessment/Plan Problems: (1) ATN (acute tubular necrosis) (2) Cellulitis (3) Severe anemia (4) Peripheral edema (5) Elephantiasis (6) Mild pulmonary hypertension (7) Morbid obesity (8) History of hypertension Assessment/Plan wbc higher check cultures doing better all reviewed bun/creatinine slightlyl beter today wound care, iv abx podiatry monitor BP f/u stool for OB was negative. symptomatic treatment. Subjective ROS Limited/Unobtainable: No Constitutional: Reports: no symptoms HEENT: Repors: no symptoms Respiratory: Reports: no symptoms Allergies: Coded Allergies: No Known Allergies (Unverified , 02/03/19) Objective Last 24 Hour Vital Signs Date Time Temp Pulse Resp B/P (MAP) Pulse Ox O2 Delivery O2 Flow Rate FiO2 08/02/19 12:00 98.3 78 18 142/61 (88) 95 08/02/19 09:00 Room Air 08/02/19 08:26 136/56 08/02/19 08:25 79 136/56 08/02/19 07:59 98.1 79 18 136/56 (82) 94 08/02/19 04:26 97.9 77 21 134/56 (82) 94 08/02/19 00:23 97.6 81 20 118/76 (90) 99 08/01/19 21:23 Room Air 08/01/19 20:00 98.1 72 21 129/59 (82) 95 08/01/19 17:38 81 148/59 08/01/19 16:00 98.6 81 18 148/59 (88) 94 Intake and Output 08/01/19 08/02/19 19:00 07:00 Intake Total 480 ml 120 ml Output Total 400 ml 450 ml Balance 80 ml -330 ml Intake Oral 480 ml IV Total 120 ml Output Urine Total 400 ml 450 ml # Voids 2 General Appearance: WD/WN, no acute distress HEENT: atraumatic Respiratory/Chest: chest wall non-tender, lungs clear Breasts: no masses Cardiovascular: normal rate, regular rhythm Abdomen: normal bowel sounds, soft, non tender Genitourinary: normal external genitalia Extremities: no clubbing Skin: no rash Laboratory Tests 08/02/19 05:00: White Blood Count 13.0H, Red Blood Count 3.41L, Hemoglobin 9.9L, Hematocrit 29.3L, Mean Corpuscular Volume 86, Mean Corpuscular Hemoglobin 28.9, Mean Corpuscular Hemoglobin Concent 33.7, Red Cell Distribution Width 12.5, Platelet Count 255, Mean Platelet Volume 5.7L, Neutrophils (%) (Auto) 76.9H, Lymphocytes (%) (Auto) 13.3L, Monocytes (%) (Auto) 5.4, Eosinophils (%) (Auto) 3.6H, Basophils (%) (Auto) 0.8, Erythrocyte Sedimentation Rate 79H, Sodium Level 148H , Potassium Level 4.2, Chloride Level 107, Carbon Dioxide Level 30, Anion Gap 12 , Blood Urea Nitrogen 26H, Creatinine 1.5H, Estimat Glomerular Filtration Rate 40.2, Glucose Level 100, Calcium Level 9.6, Phosphorus Level 3.4, Magnesium Level 2.0, Total Bilirubin 0.6, Aspartate Amino Transf (AST/SGOT) 15, Alanine Aminotransferase (ALT/SGPT) 17, Alkaline Phosphatase 62, C-Reactive Protein, Quantitative 16.6H, Total Protein 6.6, Albumin 2.5L, Globulin 4.1, Albumin/ Globulin Ratio 0.6L Current Medications Medications (Trade) Dose Ordered Sig/Christel Route PRN Reason Start Time Stop Time Status Last Admin Dose Admin Acetaminophen (Tylenol) 1,000 mg Q6H PRN ORAL Mild Pain/Temp > 100.5 07/26/19 22:00 08/25/19 21:59 07/26/19 22:33 Aspirin (Ecotrin) 81 mg DAILY ORAL 07/27/19 09:00 08/26/19 08:59 08/02/19 08:25 Carvedilol (Coreg) 25 mg BID ORAL 07/27/19 09:00 08/26/19 08:59 08/02/19 08:25 Cyanocobalamin (Vitamin B12) 1,000 mcg ONCE SUBQ 08/02/19 11:30 08/02/19 13:00 Daptomycin 400 mg/ Sodium Chloride 55 ml @ 100 mls/hr Q48H IV 08/01/19 18:00 08/08/19 17:59 08/01/19 18:50 Docusate Sodium (Colace) 100 mg THREE TIMES A DAY ORAL 08/01/19 13:00 08/31/19 12:59 08/02/19 08:26 Folic Acid (Folate) 1 mg DAILY ORAL 08/01/19 10:00 08/31/19 09:59 08/02/19 08:26 Lorazepam (Ativan 2mg/ml 1ml) 2 mg Q4H PRN IV For Anxiety 07/29/19 12:15 08/05/19 12:14 Lorazepam (Ativan) 1 mg Q6H PRN ORAL For Anxiety 07/26/19 22:00 08/02/19 21:59 Losartan Potassium (Cozaar) 50 mg DAILY ORAL 07/27/19 09:00 08/26/19 08:59 08/02/19 08:26 Morphine Sulfate (Morphine Sulfate) 2 mg Q4H PRN IVP For severe Pain 07/29/19 15:15 08/05/19 15:14 07/31/19 04:13 Ondansetron HCl (Zofran) 4 mg Q4H PRN IVP Nausea & Vomiting 07/29/19 15:15 08/28/19 15:14 07/31/19 04:13 Pantoprazole (Protonix) 40 mg EVERY 12 HOURS ORAL 08/01/19 21:00 08/31/19 20:59 08/02/19 08:26 Rivaroxaban (Xarelto) 15 mg BID ORAL 07/27/19 18:00 08/17/19 09:01 08/02/19 08:26 Rivaroxaban (Xarelto) 20 mg DAILY ORAL 08/18/19 09:00 09/17/19 08:59 Tramadol HCl (Ultram) 50 mg Q6H PRN ORAL Severe Pain (Pain Scale 7-10) 07/26/19 22:00 08/02/19 21:59 07/30/19 08:33 Mone Newton MD Aug 02, 2019 12:37
[2019-08-02 16:00] VITALS: BP 129/76
--- NOTE | 2019-08-02 17:05 | Internal Med Progress Note ---
Subjective Date of Service: Aug 02, 2019 Physician Name Tony Gaytan Attending Physician Mark Jones MD Current Medications Medications (Trade) Dose Ordered Sig/Christel Route PRN Reason Start Time Stop Time Status Last Admin Dose Admin Acetaminophen (Tylenol) 1,000 mg Q6H PRN ORAL Mild Pain/Temp > 100.5 07/26/19 22:00 08/25/19 21:59 07/26/19 22:33 Aspirin (Ecotrin) 81 mg DAILY ORAL 07/27/19 09:00 08/26/19 08:59 08/02/19 08:25 Carvedilol (Coreg) 25 mg BID ORAL 07/27/19 09:00 08/26/19 08:59 08/02/19 08:25 Daptomycin 400 mg/ Sodium Chloride 55 ml @ 100 mls/hr Q48H IV 08/01/19 18:00 08/08/19 17:59 08/01/19 18:50 Docusate Sodium (Colace) 100 mg THREE TIMES A DAY ORAL 08/01/19 13:00 08/31/19 12:59 08/02/19 12:46 Folic Acid (Folate) 1 mg DAILY ORAL 08/01/19 10:00 08/31/19 09:59 08/02/19 08:26 Lorazepam (Ativan 2mg/ml 1ml) 2 mg Q4H PRN IV For Anxiety 07/29/19 12:15 08/05/19 12:14 Lorazepam (Ativan) 1 mg Q6H PRN ORAL For Anxiety 07/26/19 22:00 08/02/19 21:59 Losartan Potassium (Cozaar) 50 mg DAILY ORAL 07/27/19 09:00 08/26/19 08:59 08/02/19 08:26 Morphine Sulfate (Morphine Sulfate) 2 mg Q4H PRN IVP For severe Pain 07/29/19 15:15 08/05/19 15:14 07/31/19 04:13 Ondansetron HCl (Zofran) 4 mg Q4H PRN IVP Nausea & Vomiting 07/29/19 15:15 08/28/19 15:14 07/31/19 04:13 Pantoprazole (Protonix) 40 mg EVERY 12 HOURS ORAL 08/01/19 21:00 08/31/19 20:59 08/02/19 08:26 Rivaroxaban (Xarelto) 15 mg BID ORAL 07/27/19 18:00 08/17/19 09:01 08/02/19 08:26 Rivaroxaban (Xarelto) 20 mg DAILY ORAL 08/18/19 09:00 09/17/19 08:59 Tramadol HCl (Ultram) 50 mg Q6H PRN ORAL Severe Pain (Pain Scale 7-10) 07/26/19 22:00 08/02/19 21:59 07/30/19 08:33 Allergies: Coded Allergies: No Known Allergies (Unverified , 02/03/19) ROS Limited/Unobtainable: No Constitutional: Reports: no symptoms HEENT: Reports: no symptoms Cardiovascular: Reports: no symptoms Respiratory: Reports: no symptoms Gastrointestinal/Abdominal: Reports: no symptoms Genitourinary: Reports: no symptoms Neurologic/Psychiatric: Reports: no symptoms Subjective 84 YO F admitted with bilateral leg swelling and cellulitis bilat lower extremities. Now acute deep venous thrombosis left leg. Cover for Int Edgardo-Dr Jones Objective Last Vital Signs Date Time Temp Pulse Resp B/P (MAP) Pulse Ox O2 Delivery O2 Flow Rate FiO2 08/02/19 16:00 98.3 72 20 129/76 (93) 95 08/02/19 09:00 Room Air Laboratory Tests Test 08/02/19 05:00 White Blood Count 13.0 K/UL (4.8-10.8) H Red Blood Count 3.41 M/UL (4.20-5.40) L Hemoglobin 9.9 G/DL (12.0-16.0) L Hematocrit 29.3 % (37.0-47.0) L Mean Corpuscular Volume 86 FL (80-99) Mean Corpuscular Hemoglobin 28.9 PG (27.0-31.0) Mean Corpuscular Hemoglobin Concent 33.7 G/DL (32.0-36.0) Red Cell Distribution Width 12.5 % (11.6-14.8) Platelet Count 255 K/UL (150-450) Mean Platelet Volume 5.7 FL (6.5-10.1) L Neutrophils (%) (Auto) 76.9 % (45.0-75.0) H Lymphocytes (%) (Auto) 13.3 % (20.0-45.0) L Monocytes (%) (Auto) 5.4 % (1.0-10.0) Eosinophils (%) (Auto) 3.6 % (0.0-3.0) H Basophils (%) (Auto) 0.8 % (0.0-2.0) Erythrocyte Sedimentation Rate 79 MM/HR (0-30) H Sodium Level 148 MMOL/L (136-145) H Potassium Level 4.2 MMOL/L (3.5-5.1) Chloride Level 107 MMOL/L (98-107) Carbon Dioxide Level 30 MMOL/L (21-32) Anion Gap 12 mmol/L (5-15) Blood Urea Nitrogen 26 mg/dL (7-18) H Creatinine 1.5 MG/DL (0.55-1.30) H Estimat Glomerular Filtration Rate 40.2 mL/min (>60) Glucose Level 100 MG/DL (74-106) Calcium Level 9.6 MG/DL (8.5-10.1) Phosphorus Level 3.4 MG/DL (2.5-4.9) Magnesium Level 2.0 MG/DL (1.8-2.4) Total Bilirubin 0.6 MG/DL (0.2-1.0) Aspartate Amino Transf (AST/SGOT) 15 U/L (15-37) Alanine Aminotransferase (ALT/SGPT) 17 U/L (12-78) Alkaline Phosphatase 62 U/L (46-116) C-Reactive Protein, Quantitative 16.6 mg/dL (0.00-0.90) H Total Protein 6.6 G/DL (6.4-8.2) Albumin 2.5 G/DL (3.4-5.0) L Globulin 4.1 g/dL Albumin/Globulin Ratio 0.6 (1.0-2.7) L Intake and Output 08/01/19 08/02/19 19:00 07:00 Intake Total 480 ml 120 ml Output Total 400 ml 450 ml Balance 80 ml -330 ml Intake Oral 480 ml IV Total 120 ml Output Urine Total 400 ml 450 ml # Voids 2 Objective PHYSICAL EXAMINATION: GENERAL: The patient is a well-developed, well-nourished female, in no apparent distress. HEENT: Eyes, pupils equal and responsive to light and accommodation. Extraocular movements are intact. NECK: Supple without lymphadenopathy. CHEST: Lungs are clear to auscultation bilaterally without wheezes or rales. CARDIOVASCULAR: Regular rhythm and rate. S1, S2 normal without murmurs, rubs, or gallops. ABDOMEN: Soft, nontender, and nondistended. Positive bowel sounds. No evidence of hepatosplenomegaly. Currently, no rebound or guarding. EXTREMITIES: A 2+ pitting edema from the ankles to the knees bilaterally with erythema of the left anterior calf from the ankle to the knee, left greater than right. Assessment/Plan Assessment/Plan ASSESSMENT: This is an 84-year-old female: 1. Cellulitis of bilateral lower extremities. 2. Lymphedema bilateral lower extremities. 3. Bilateral leg pain. 4. Hypertension. 5. Acute deep venous thrombosis left common femoral to superficial femoral vein TREATMENT: 1. Cellulitis of the bilateral lower extremities. ABX= vancomycin and S/P ceftriaxone. An Infectious Disease consultation has been obtained with Dr. Joel. We will follow recommendations of Infectious Disease. 2. Hypertension. Continue Cozaar and Coreg as above. 3. Start xarelto 4. Discharge planning : half-way fac Tony Gaytan MD Aug 02, 2019 17:04
[2019-08-02 18:22] LABS: APPEARANCE,URINE CLOUDY; BILIRUBIN, URINE NEGATIVE (NEGATIVE); GLUCOSE, URINE (UA) NEGATIVE (NEGATIVE); KETONES,URINE 1+ (NEGATIVE); LEUKOCYTE ESTERASE ,URINE 3+ (NEGATIVE); NITRITE,URINE NEGATIVE (NEGATIVE); PH,URINE 5 (4.5-8.0); PROTEIN,URINE 2+ (NEGATIVE); UROBILINOGEN,URINE NORMAL MG/DL (0.0-1.0)
[2019-08-02 18:25] LABS: COLOR,URINE YELLOW
--- NOTE | 2019-08-02 18:42 | Infectious Diseases Prog Note ---
Assessment/Plan Assessment/Plan ASSESSMENT: The patient is an 84-year-old female with Lower extremity lymphedema/cellulitis Left lower extremity edema. Normal white blood cells and afebrile ALEXANDRA DVT: Acute DVT in the left common femoral vein and superficial femoral vein Hypertension. Bilateral lymphedema PLAN: Continue the patient on IV Datpo # 2/5-7 3 Sp IV Vancomycin # 5 ( ALEXANDRA ) 07/28 Sp Rocephin # 1 Monitor CBC Monitor BMP. Blood cultures. Subjective Allergies: Coded Allergies: No Known Allergies (Unverified , 02/03/19) Subjective comfortable no acute event Objective Vital Signs Last 24 Hour Vital Signs Date Time Temp Pulse Resp B/P (MAP) Pulse Ox O2 Delivery O2 Flow Rate FiO2 08/02/19 17:43 72 129/76 08/02/19 16:00 98.3 72 20 129/76 (93) 95 08/02/19 12:00 98.3 78 18 142/61 (88) 95 08/02/19 09:00 Room Air 08/02/19 08:26 136/56 08/02/19 08:25 79 136/56 08/02/19 07:59 98.1 79 18 136/56 (82) 94 08/02/19 04:26 97.9 77 21 134/56 (82) 94 08/02/19 00:23 97.6 81 20 118/76 (90) 99 08/01/19 21:23 Room Air 08/01/19 20:00 98.1 72 21 129/59 (82) 95 Height (Feet): 5 Height (Inches): 2.00 Weight (Pounds): 227 HEENT: anicteric Respiratory/Chest: normal breath sounds Cardiovascular: regular rhythm Abdomen: no organomegaly Laboratory Tests Test 08/02/19 05:00 08/02/19 17:45 White Blood Count 13.0 K/UL (4.8-10.8) H Red Blood Count 3.41 M/UL (4.20-5.40) L Hemoglobin 9.9 G/DL (12.0-16.0) L Hematocrit 29.3 % (37.0-47.0) L Mean Corpuscular Volume 86 FL (80-99) Mean Corpuscular Hemoglobin 28.9 PG (27.0-31.0) Mean Corpuscular Hemoglobin Concent 33.7 G/DL (32.0-36.0) Red Cell Distribution Width 12.5 % (11.6-14.8) Platelet Count 255 K/UL (150-450) Mean Platelet Volume 5.7 FL (6.5-10.1) L Neutrophils (%) (Auto) 76.9 % (45.0-75.0) H Lymphocytes (%) (Auto) 13.3 % (20.0-45.0) L Monocytes (%) (Auto) 5.4 % (1.0-10.0) Eosinophils (%) (Auto) 3.6 % (0.0-3.0) H Basophils (%) (Auto) 0.8 % (0.0-2.0) Erythrocyte Sedimentation Rate 79 MM/HR (0-30) H Sodium Level 148 MMOL/L (136-145) H Potassium Level 4.2 MMOL/L (3.5-5.1) Chloride Level 107 MMOL/L (98-107) Carbon Dioxide Level 30 MMOL/L (21-32) Anion Gap 12 mmol/L (5-15) Blood Urea Nitrogen 26 mg/dL (7-18) H Creatinine 1.5 MG/DL (0.55-1.30) H Estimat Glomerular Filtration Rate 40.2 mL/min (>60) Glucose Level 100 MG/DL (74-106) Calcium Level 9.6 MG/DL (8.5-10.1) Phosphorus Level 3.4 MG/DL (2.5-4.9) Magnesium Level 2.0 MG/DL (1.8-2.4) Total Bilirubin 0.6 MG/DL (0.2-1.0) Aspartate Amino Transf (AST/SGOT) 15 U/L (15-37) Alanine Aminotransferase (ALT/SGPT) 17 U/L (12-78) Alkaline Phosphatase 62 U/L (46-116) C-Reactive Protein, Quantitative 16.6 mg/dL (0.00-0.90) H Total Protein 6.6 G/DL (6.4-8.2) Albumin 2.5 G/DL (3.4-5.0) L Globulin 4.1 g/dL Albumin/Globulin Ratio 0.6 (1.0-2.7) L Urine Color Yellow Urine Appearance Cloudy Urine pH 5 (4.5-8.0) Urine Specific [place] 1.015 (1.005-1.035) Urine Protein 2+ (NEGATIVE) H Urine Glucose (UA) Negative (NEGATIVE) Urine Ketones 1+ (NEGATIVE) H Urine Blood 5+ (NEGATIVE) H Urine Nitrite Negative (NEGATIVE) Urine Bilirubin Negative (NEGATIVE) Urine Urobilinogen Normal MG/DL (0.0-1.0) Urine Leukocyte Esterase 3+ (NEGATIVE) H Urine RBC 30-40 /HPF (0 - 2) H Urine WBC 2-4 /HPF (0 - 2) Urine Squamous Epithelial Cells Many /LPF (NONE/OCC) H Urine Bacteria Moderate /HPF (NONE) H Current Medications Medications (Trade) Dose Ordered Sig/Christel Route PRN Reason Start Time Stop Time Status Last Admin Dose Admin Acetaminophen (Tylenol) 1,000 mg Q6H PRN ORAL Mild Pain/Temp > 100.5 07/26/19 22:00 08/25/19 21:59 07/26/19 22:33 Aspirin (Ecotrin) 81 mg DAILY ORAL 07/27/19 09:00 08/26/19 08:59 08/02/19 08:25 Carvedilol (Coreg) 25 mg BID ORAL 07/27/19 09:00 08/26/19 08:59 08/02/19 08:25 Daptomycin 400 mg/ Sodium Chloride 55 ml @ 100 mls/hr Q48H IV 08/01/19 18:00 08/08/19 17:59 08/01/19 18:50 Docusate Sodium (Colace) 100 mg THREE TIMES A DAY ORAL 08/01/19 13:00 08/31/19 12:59 08/02/19 12:46 Folic Acid (Folate) 1 mg DAILY ORAL 08/01/19 10:00 08/31/19 09:59 08/02/19 08:26 Lorazepam (Ativan 2mg/ml 1ml) 2 mg Q4H PRN IV For Anxiety 07/29/19 12:15 08/05/19 12:14 Lorazepam (Ativan) 1 mg Q6H PRN ORAL For Anxiety 07/26/19 22:00 08/02/19 21:59 Losartan Potassium (Cozaar) 50 mg DAILY ORAL 07/27/19 09:00 08/26/19 08:59 08/02/19 08:26 Morphine Sulfate (Morphine Sulfate) 2 mg Q4H PRN IVP For severe Pain 07/29/19 15:15 08/05/19 15:14 07/31/19 04:13 Ondansetron HCl (Zofran) 4 mg Q4H PRN IVP Nausea & Vomiting 07/29/19 15:15 08/28/19 15:14 07/31/19 04:13 Pantoprazole (Protonix) 40 mg EVERY 12 HOURS ORAL 08/01/19 21:00 08/31/19 20:59 08/02/19 08:26 Rivaroxaban (Xarelto) 15 mg BID ORAL 07/27/19 18:00 08/17/19 09:01 08/02/19 17:42 Rivaroxaban (Xarelto) 20 mg DAILY ORAL 08/18/19 09:00 09/17/19 08:59 Tramadol HCl (Ultram) 50 mg Q6H PRN ORAL Severe Pain (Pain Scale 7-10) 07/26/19 22:00 08/02/19 21:59 07/30/19 08:33 Johnnie Joel MD Aug 02, 2019 18:42
--- NOTE | 2019-08-02 19:02 | NUR ---
HAND-OFF: Report given to Chrissie YEPEZ RN.
[2019-08-02 20:00] VITALS: BP 108/48
--- NOTE | 2019-08-02 20:07 | NUR ---
NURSE NOTES: Received patient awake, alert, verbal, resting in bed comfortably without complaints.
[2019-08-03 00:19] VITALS: BP 129/51
[2019-08-03 04:23] VITALS: BP 134/54
[2019-08-03 06:43] LABS: BASOPHILS % (AUTO) 0.9 % (0.0-2.0); HEMATOCRIT 28.8 % (37.0-47.0); HEMOGLOBIN 9.6 G/DL (12.0-16.0); MEAN CORPUSCULAR VOLUME 86 FL (80-99); MONOCYTES % (AUTO) 4.7 % (1.0-10.0); NEUTROPHILS % (AUTO) 71.4 % (45.0-75.0); PLATELET COUNT 288 K/UL (150-450); RED BLOOD COUNT 3.37 M/UL (4.20-5.40); RED CELL DISTRIBUTION WIDTH 12.6 % (11.6-14.8); WHITE BLOOD COUNT 11.8 K/UL (4.8-10.8)
--- NOTE | 2019-08-03 07:27 | NUR ---
HAND-OFF: Report given to Nacho Shelby RN.
[2019-08-03 07:36] LABS: ALANINE AMINOTRANSFERASE 11 U/L (12-78); ALBUMIN 2.6 G/DL (3.4-5.0); ALBUMIN/GLOBULIN RATIO 0.7 (1.0-2.7); ALKALINE PHOSPHATASE 56 U/L (46-116); ANION GAP 9 mmol/L (5-15); ASPARTATE AMINO TRANSFERASE 13 U/L (15-37); BILIRUBIN,TOTAL 0.5 MG/DL (0.2-1.0); BLOOD UREA NITROGEN 23 mg/dL (7-18); CALCIUM 9.4 MG/DL (8.5-10.1); CARBON DIOXIDE 30 MMOL/L (21-32); CHLORIDE 107 MMOL/L (98-107); CREATININE 1.4 MG/DL (0.55-1.30); PHOSPHORUS 3.3 MG/DL (2.5-4.9); POTASSIUM 3.6 MMOL/L (3.5-5.1); SODIUM 146 MMOL/L (136-145)
[2019-08-03 08:00] VITALS: BP 136/60
[2019-08-03] MEDS: Losartan 50mg tab ORAL SCH (08:45)
[2019-08-03] MEDS: Aspirin EC 81mg tab ORAL SCH (08:45)
[2019-08-03] MEDS: Carvedilol 25mg Tab ORAL SCH ×2 (08:45→17:16)
[2019-08-03] MEDS: Xarelto 15mg tab ORAL SCH ×2 (08:46→17:16)
[2019-08-03] MEDS: Docusate 100mg cap ORAL SCH ×3 (08:53→17:16)
--- NOTE | 2019-08-03 09:15 | Infectious Diseases Prog Note ---
Assessment/Plan Assessment/Plan ASSESSMENT: The patient is an 84-year-old female with Lower extremity lymphedema/cellulitis Left lower extremity edema. Leukocytosis improving afebrile ALEXANDRA DVT: Acute DVT in the left common femoral vein and superficial femoral vein Hypertension. Bilateral lymphedema PLAN: Continue the patient on IV Datpo # 3/5-7 3 Sp IV Vancomycin # 5 ( ALEXANDRA ) 07/28 Sp Rocephin # 1 Monitor CBC Monitor BMP. Blood cultures Subjective Allergies: Coded Allergies: No Known Allergies (Unverified , 02/03/19) Subjective feeling better Objective Vital Signs Last 24 Hour Vital Signs Date Time Temp Pulse Resp B/P (MAP) Pulse Ox O2 Delivery O2 Flow Rate FiO2 08/03/19 08:45 136/60 08/03/19 08:45 84 136/60 08/03/19 08:00 98.6 84 18 136/60 (85) 98 08/03/19 04:23 98.3 82 18 134/54 (80) 92 08/03/19 00:19 98.2 83 18 129/51 (77) 95 08/02/19 21:00 Room Air 08/02/19 20:00 98.2 80 16 108/48 (68) 95 08/02/19 17:43 72 129/76 08/02/19 16:00 98.3 72 20 129/76 (93) 95 08/02/19 12:00 98.3 78 18 142/61 (88) 95 Height (Feet): 5 Height (Inches): 2.00 Weight (Pounds): 210 Respiratory/Chest: normal breath sounds Cardiovascular: regularly irregular Abdomen: no organomegaly Microbiology Date/Time Source Procedure Growth Status 08/02/19 17:45 Urine,Clean Catch Urine Culture - Preliminary NO GROWTH Resulted Laboratory Tests Test 08/02/19 17:45 08/03/19 05:34 Urine Color Yellow Urine Appearance Cloudy Urine pH 5 (4.5-8.0) Urine Specific [place] 1.015 (1.005-1.035) Urine Protein 2+ (NEGATIVE) H Urine Glucose (UA) Negative (NEGATIVE) Urine Ketones 1+ (NEGATIVE) H Urine Blood 5+ (NEGATIVE) H Urine Nitrite Negative (NEGATIVE) Urine Bilirubin Negative (NEGATIVE) Urine Urobilinogen Normal MG/DL (0.0-1.0) Urine Leukocyte Esterase 3+ (NEGATIVE) H Urine RBC 30-40 /HPF (0 - 2) H Urine WBC 2-4 /HPF (0 - 2) Urine Squamous Epithelial Cells Many /LPF (NONE/OCC) H Urine Bacteria Moderate /HPF (NONE) H White Blood Count 11.8 K/UL (4.8-10.8) H Red Blood Count 3.37 M/UL (4.20-5.40) L Hemoglobin 9.6 G/DL (12.0-16.0) L Hematocrit 28.8 % (37.0-47.0) L Mean Corpuscular Volume 86 FL (80-99) Mean Corpuscular Hemoglobin 28.5 PG (27.0-31.0) Mean Corpuscular Hemoglobin Concent 33.3 G/DL (32.0-36.0) Red Cell Distribution Width 12.6 % (11.6-14.8) Platelet Count 288 K/UL (150-450) Mean Platelet Volume 5.7 FL (6.5-10.1) L Neutrophils (%) (Auto) 71.4 % (45.0-75.0) Lymphocytes (%) (Auto) 18.0 % (20.0-45.0) L Monocytes (%) (Auto) 4.7 % (1.0-10.0) Eosinophils (%) (Auto) 5.0 % (0.0-3.0) H Basophils (%) (Auto) 0.9 % (0.0-2.0) Sodium Level 146 MMOL/L (136-145) H Potassium Level 3.6 MMOL/L (3.5-5.1) Chloride Level 107 MMOL/L (98-107) Carbon Dioxide Level 30 MMOL/L (21-32) Anion Gap 9 mmol/L (5-15) Blood Urea Nitrogen 23 mg/dL (7-18) H Creatinine 1.4 MG/DL (0.55-1.30) H Estimat Glomerular Filtration Rate 43.5 mL/min (>60) Glucose Level 100 MG/DL (74-106) Uric Acid 10.5 MG/DL (2.6-7.2) H Calcium Level 9.4 MG/DL (8.5-10.1) Phosphorus Level 3.3 MG/DL (2.5-4.9) Magnesium Level 2.1 MG/DL (1.8-2.4) Total Bilirubin 0.5 MG/DL (0.2-1.0) Aspartate Amino Transf (AST/SGOT) 13 U/L (15-37) L Alanine Aminotransferase (ALT/SGPT) 11 U/L (12-78) L Alkaline Phosphatase 56 U/L (46-116) C-Reactive Protein, Quantitative 11.3 mg/dL (0.00-0.90) H Pro-B-Type Natriuretic Peptide 385 pg/mL (0-125) H Total Protein 6.5 G/DL (6.4-8.2) Albumin 2.6 G/DL (3.4-5.0) L Globulin 3.9 g/dL Albumin/Globulin Ratio 0.7 (1.0-2.7) L Current Medications Medications (Trade) Dose Ordered Sig/Christel Route PRN Reason Start Time Stop Time Status Last Admin Dose Admin Acetaminophen (Tylenol) 1,000 mg Q6H PRN ORAL Mild Pain/Temp > 100.5 07/26/19 22:00 08/25/19 21:59 07/26/19 22:33 Aspirin (Ecotrin) 81 mg DAILY ORAL 07/27/19 09:00 08/26/19 08:59 08/03/19 08:45 Carvedilol (Coreg) 25 mg BID ORAL 07/27/19 09:00 08/26/19 08:59 08/03/19 08:45 Daptomycin 400 mg/ Sodium Chloride 55 ml @ 100 mls/hr Q48H IV 08/01/19 18:00 08/08/19 17:59 08/01/19 18:50 Docusate Sodium (Colace) 100 mg THREE TIMES A DAY ORAL 08/01/19 13:00 08/31/19 12:59 08/02/19 12:46 Folic Acid (Folate) 1 mg DAILY ORAL 08/01/19 10:00 08/31/19 09:59 08/03/19 08:45 Lorazepam (Ativan 2mg/ml 1ml) 2 mg Q4H PRN IV For Anxiety 07/29/19 12:15 08/05/19 12:14 Losartan Potassium (Cozaar) 50 mg DAILY ORAL 07/27/19 09:00 08/26/19 08:59 08/03/19 08:45 Morphine Sulfate (Morphine Sulfate) 2 mg Q4H PRN IVP For severe Pain 07/29/19 15:15 08/05/19 15:14 07/31/19 04:13 Ondansetron HCl (Zofran) 4 mg Q4H PRN IVP Nausea & Vomiting 07/29/19 15:15 08/28/19 15:14 07/31/19 04:13 Pantoprazole (Protonix) 40 mg EVERY 12 HOURS ORAL 08/01/19 21:00 08/31/19 20:59 08/03/19 08:46 Rivaroxaban (Xarelto) 15 mg BID ORAL 07/27/19 18:00 08/17/19 09:01 08/03/19 08:46 Rivaroxaban (Xarelto) 20 mg DAILY ORAL 08/18/19 09:00 09/17/19 08:59 Johnnie Joel MD Aug 03, 2019 09:15
[2019-08-03 12:00] VITALS: BP 128/52
--- NOTE | 2019-08-03 12:58 | Internal Med Progress Note ---
Subjective Date of Service: Aug 03, 2019 Physician Name Tony Gaytan Attending Physician Mark Jones MD Current Medications Medications (Trade) Dose Ordered Sig/Christel Route PRN Reason Start Time Stop Time Status Last Admin Dose Admin Acetaminophen (Tylenol) 1,000 mg Q6H PRN ORAL Mild Pain/Temp > 100.5 07/26/19 22:00 08/25/19 21:59 07/26/19 22:33 Aspirin (Ecotrin) 81 mg DAILY ORAL 07/27/19 09:00 08/26/19 08:59 08/03/19 08:45 Carvedilol (Coreg) 25 mg BID ORAL 07/27/19 09:00 08/26/19 08:59 08/03/19 08:45 Daptomycin 400 mg/ Sodium Chloride 55 ml @ 100 mls/hr Q48H IV 08/01/19 18:00 08/08/19 17:59 08/01/19 18:50 Docusate Sodium (Colace) 100 mg THREE TIMES A DAY ORAL 08/01/19 13:00 08/31/19 12:59 08/02/19 12:46 Folic Acid (Folate) 1 mg DAILY ORAL 08/01/19 10:00 08/31/19 09:59 08/03/19 08:45 Lorazepam (Ativan 2mg/ml 1ml) 2 mg Q4H PRN IV For Anxiety 07/29/19 12:15 08/05/19 12:14 Losartan Potassium (Cozaar) 50 mg DAILY ORAL 07/27/19 09:00 08/26/19 08:59 08/03/19 08:45 Morphine Sulfate (Morphine Sulfate) 2 mg Q4H PRN IVP For severe Pain 07/29/19 15:15 08/05/19 15:14 07/31/19 04:13 Ondansetron HCl (Zofran) 4 mg Q4H PRN IVP Nausea & Vomiting 07/29/19 15:15 08/28/19 15:14 07/31/19 04:13 Pantoprazole (Protonix) 40 mg EVERY 12 HOURS ORAL 08/01/19 21:00 08/31/19 20:59 08/03/19 08:46 Rivaroxaban (Xarelto) 15 mg BID ORAL 07/27/19 18:00 3/18/20 09:01 08/03/19 08:46 Rivaroxaban (Xarelto) 20 mg DAILY ORAL 08/18/19 09:00 09/17/19 08:59 Allergies: Coded Allergies: No Known Allergies (Unverified , 02/03/19) ROS Limited/Unobtainable: No Constitutional: Reports: no symptoms HEENT: Reports: no symptoms Cardiovascular: Reports: no symptoms Respiratory: Reports: no symptoms Gastrointestinal/Abdominal: Reports: no symptoms Genitourinary: Reports: no symptoms Neurologic/Psychiatric: Reports: no symptoms Subjective 84 YO F admitted with bilateral leg swelling and cellulitis bilat lower extremities. Now acute deep venous thrombosis left leg. Cover for Int Edgardo-Dr Jones Objective Last Vital Signs Date Time Temp Pulse Resp B/P (MAP) Pulse Ox O2 Delivery O2 Flow Rate FiO2 08/03/19 12:00 98.1 75 18 128/52 (77) 95 08/03/19 09:00 Room Air Laboratory Tests Test 08/02/19 17:45 08/03/19 05:34 Urine Color Yellow Urine Appearance Cloudy Urine pH 5 (4.5-8.0) Urine Specific [place] 1.015 (1.005-1.035) Urine Protein 2+ (NEGATIVE) H Urine Glucose (UA) Negative (NEGATIVE) Urine Ketones 1+ (NEGATIVE) H Urine Blood 5+ (NEGATIVE) H Urine Nitrite Negative (NEGATIVE) Urine Bilirubin Negative (NEGATIVE) Urine Urobilinogen Normal MG/DL (0.0-1.0) Urine Leukocyte Esterase 3+ (NEGATIVE) H Urine RBC 30-40 /HPF (0 - 2) H Urine WBC 2-4 /HPF (0 - 2) Urine Squamous Epithelial Cells Many /LPF (NONE/OCC) H Urine Bacteria Moderate /HPF (NONE) H White Blood Count 11.8 K/UL (4.8-10.8) H Red Blood Count 3.37 M/UL (4.20-5.40) L Hemoglobin 9.6 G/DL (12.0-16.0) L Hematocrit 28.8 % (37.0-47.0) L Mean Corpuscular Volume 86 FL (80-99) Mean Corpuscular Hemoglobin 28.5 PG (27.0-31.0) Mean Corpuscular Hemoglobin Concent 33.3 G/DL (32.0-36.0) Red Cell Distribution Width 12.6 % (11.6-14.8) Platelet Count 288 K/UL (150-450) Mean Platelet Volume 5.7 FL (6.5-10.1) L Neutrophils (%) (Auto) 71.4 % (45.0-75.0) Lymphocytes (%) (Auto) 18.0 % (20.0-45.0) L Monocytes (%) (Auto) 4.7 % (1.0-10.0) Eosinophils (%) (Auto) 5.0 % (0.0-3.0) H Basophils (%) (Auto) 0.9 % (0.0-2.0) Sodium Level 146 MMOL/L (136-145) H Potassium Level 3.6 MMOL/L (3.5-5.1) Chloride Level 107 MMOL/L (98-107) Carbon Dioxide Level 30 MMOL/L (21-32) Anion Gap 9 mmol/L (5-15) Blood Urea Nitrogen 23 mg/dL (7-18) H Creatinine 1.4 MG/DL (0.55-1.30) H Estimat Glomerular Filtration Rate 43.5 mL/min (>60) Glucose Level 100 MG/DL (74-106) Uric Acid 10.5 MG/DL (2.6-7.2) H Calcium Level 9.4 MG/DL (8.5-10.1) Phosphorus Level 3.3 MG/DL (2.5-4.9) Magnesium Level 2.1 MG/DL (1.8-2.4) Total Bilirubin 0.5 MG/DL (0.2-1.0) Aspartate Amino Transf (AST/SGOT) 13 U/L (15-37) L Alanine Aminotransferase (ALT/SGPT) 11 U/L (12-78) L Alkaline Phosphatase 56 U/L (46-116) C-Reactive Protein, Quantitative 11.3 mg/dL (0.00-0.90) H Pro-B-Type Natriuretic Peptide 385 pg/mL (0-125) H Total Protein 6.5 G/DL (6.4-8.2) Albumin 2.6 G/DL (3.4-5.0) L Globulin 3.9 g/dL Albumin/Globulin Ratio 0.7 (1.0-2.7) L Microbiology Date/Time Source Procedure Growth Status 08/02/19 17:45 Urine,Clean Catch Urine Culture - Preliminary NO GROWTH Resulted Intake and Output 08/02/19 08/03/19 19:00 07:00 Intake Total 360 ml Balance 360 ml Intake Oral 360 ml # Bowel Movements 1 Objective PHYSICAL EXAMINATION: GENERAL: The patient is a well-developed, well-nourished female, in no apparent distress. HEENT: Eyes, pupils equal and responsive to light and accommodation. Extraocular movements are intact. NECK: Supple without lymphadenopathy. CHEST: Lungs are clear to auscultation bilaterally without wheezes or rales. CARDIOVASCULAR: Regular rhythm and rate. S1, S2 normal without murmurs, rubs, or gallops. ABDOMEN: Soft, nontender, and nondistended. Positive bowel sounds. No evidence of hepatosplenomegaly. Currently, no rebound or guarding. EXTREMITIES: A 2+ pitting edema from the ankles to the knees bilaterally with erythema of the left anterior calf from the ankle to the knee, left greater than right. Assessment/Plan Assessment/Plan ASSESSMENT: This is an 84-year-old female: 1. Cellulitis of bilateral lower extremities. 2. Lymphedema bilateral lower extremities. 3. Bilateral leg pain. 4. Hypertension. 5. Acute deep venous thrombosis left common femoral to superficial femoral vein TREATMENT: 1. Cellulitis of the bilateral lower extremities. ABX= daptomycin and S/P ceftriaxone. An Infectious Disease consultation has been obtained with Dr. Joel. We will follow recommendations of Infectious Disease. 2. Hypertension. Continue Cozaar and Coreg as above. 3. Start xarelto 4. Discharge planning : [facility] Tony Gaytan MD Aug 03, 2019 12:58
--- NOTE | 2019-08-03 13:07 | Pulmonology Progress Note ---
Assessment/Plan Problems: (1) ATN (acute tubular necrosis) (2) Cellulitis (3) Severe anemia (4) Peripheral edema (5) Elephantiasis (6) Mild pulmonary hypertension (7) Morbid obesity (8) History of hypertension (9) Acute DVT (deep venous thrombosis) Assessment/Plan wbc slightly lower check cultures, still pending doing better all reviewed on Xarelto for DVT wound care, iv abx podiatry monitor BP f/u stool for OB was negative. symptomatic treatment. Subjective ROS Limited/Unobtainable: No Interval Events: no new complains Allergies: Coded Allergies: No Known Allergies (Unverified , 02/03/19) Objective Last 24 Hour Vital Signs Date Time Temp Pulse Resp B/P (MAP) Pulse Ox O2 Delivery O2 Flow Rate FiO2 08/03/19 12:00 98.1 75 18 128/52 (77) 95 08/03/19 09:00 Room Air 08/03/19 08:45 136/60 08/03/19 08:45 84 136/60 08/03/19 08:00 98.6 84 18 136/60 (85) 98 08/03/19 04:23 98.3 82 18 134/54 (80) 92 08/03/19 00:19 98.2 83 18 129/51 (77) 95 08/02/19 21:00 Room Air 08/02/19 20:00 98.2 80 16 108/48 (68) 95 08/02/19 17:43 72 129/76 08/02/19 16:00 98.3 72 20 129/76 (93) 95 Intake and Output 08/02/19 08/03/19 19:00 07:00 Intake Total 360 ml Balance 360 ml Intake Oral 360 ml # Bowel Movements 1 General Appearance: WD/WN HEENT: normocephalic, anicteric Respiratory/Chest: chest wall non-tender, lungs clear Breasts: no masses Cardiovascular: normal peripheral pulses, normal rate Abdomen: normal bowel sounds, soft, non tender, no organomegaly Genitourinary: normal external genitalia Extremities: no clubbing Skin: no rash Microbiology Date/Time Source Procedure Growth Status 08/02/19 17:45 Urine,Clean Catch Urine Culture - Preliminary NO GROWTH Resulted Laboratory Tests 08/02/19 17:45: Urine Color Yellow, Urine Appearance Cloudy, Urine pH 5, Urine Specific [place] 1.015, Urine Protein 2+H, Urine Glucose (UA) Negative, Urine Ketones 1+H, Urine Blood 5+H, Urine Nitrite Negative, Urine Bilirubin Negative, Urine Urobilinogen Normal, Urine Leukocyte Esterase 3+H, Urine RBC 30-40H, Urine WBC 2-4, Urine Squamous Epithelial Cells ManyH, Urine Bacteria ModerateH 08/03/19 05:34: White Blood Count 11.8H, Red Blood Count 3.37L, Hemoglobin 9.6L, Hematocrit 28.8L, Mean Corpuscular Volume 86, Mean Corpuscular Hemoglobin 28.5, Mean Corpuscular Hemoglobin Concent 33.3, Red Cell Distribution Width 12.6, Platelet Count 288, Mean Platelet Volume 5.7L, Neutrophils (%) (Auto) 71.4, Lymphocytes ( %) (Auto) 18.0L, Monocytes (%) (Auto) 4.7, Eosinophils (%) (Auto) 5.0H, Basophils (%) (Auto) 0.9, Sodium Level 146H, Potassium Level 3.6, Chloride Level 107, Carbon Dioxide Level 30, Anion Gap 9, Blood Urea Nitrogen 23H, Creatinine 1.4H, Estimat Glomerular Filtration Rate 43.5, Glucose Level 100, Uric Acid 10.5H, Calcium Level 9.4, Phosphorus Level 3.3, Magnesium Level 2.1, Total Bilirubin 0.5, Aspartate Amino Transf (AST/SGOT) 13L, Alanine Aminotransferase (ALT/SGPT) 11L, Alkaline Phosphatase 56, C-Reactive Protein, Quantitative 11.3H, Pro-B-Type Natriuretic Peptide 385H, Total Protein 6.5, Albumin 2.6L, Globulin 3.9, Albumin/Globulin Ratio 0.7L Current Medications Medications (Trade) Dose Ordered Sig/Christel Route PRN Reason Start Time Stop Time Status Last Admin Dose Admin Acetaminophen (Tylenol) 1,000 mg Q6H PRN ORAL Mild Pain/Temp > 100.5 07/26/19 22:00 08/25/19 21:59 07/26/19 22:33 Aspirin (Ecotrin) 81 mg DAILY ORAL 07/27/19 09:00 08/26/19 08:59 08/03/19 08:45 Carvedilol (Coreg) 25 mg BID ORAL 07/27/19 09:00 08/26/19 08:59 3/4/20 08:45 Daptomycin 400 mg/ Sodium Chloride 55 ml @ 100 mls/hr Q48H IV 08/01/19 18:00 08/08/19 17:59 08/01/19 18:50 Docusate Sodium (Colace) 100 mg THREE TIMES A DAY ORAL 08/01/19 13:00 08/31/19 12:59 08/02/19 12:46 Folic Acid (Folate) 1 mg DAILY ORAL 08/01/19 10:00 08/31/19 09:59 08/03/19 08:45 Lorazepam (Ativan 2mg/ml 1ml) 2 mg Q4H PRN IV For Anxiety 07/29/19 12:15 08/05/19 12:14 Losartan Potassium (Cozaar) 50 mg DAILY ORAL 07/27/19 09:00 08/26/19 08:59 08/03/19 08:45 Morphine Sulfate (Morphine Sulfate) 2 mg Q4H PRN IVP For severe Pain 07/29/19 15:15 08/05/19 15:14 07/31/19 04:13 Ondansetron HCl (Zofran) 4 mg Q4H PRN IVP Nausea & Vomiting 07/29/19 15:15 08/28/19 15:14 07/31/19 04:13 Pantoprazole (Protonix) 40 mg EVERY 12 HOURS ORAL 08/01/19 21:00 08/31/19 20:59 08/03/19 08:46 Rivaroxaban (Xarelto) 15 mg BID ORAL 07/27/19 18:00 08/17/19 09:01 08/03/19 08:46 Rivaroxaban (Xarelto) 20 mg DAILY ORAL 08/18/19 09:00 09/17/19 08:59 Mone Newton MD Aug 03, 2019 13:07
--- NOTE | 2019-08-03 15:15 | Nephrology Progress Note ---
Assessment/Plan Problem List: (1) Acute on chronic diastolic congestive heart failure Assessment: Cr lower today (2) Morbid obesity (3) Peripheral edema (4) Elephantiasis Assessment Acute renal failure as serum creatinine anju from 1 from the date of admission TO 1.9 today. Etiology is most likely overdiuresis and and partly treatment with vancomycin. Anemia. Other conditions: 1. Cellulitis of bilateral lower extremities. 2. Lymphedema bilateral lower extremities. 3. Bilateral leg pain. 4. Hypertension. 5. Acute deep venous thrombosis left common femoral to superficial femoral vein Plan Serum creatinine improving. It is now 1.4 down from 1.9 Hold Lasix. Kidney ultrasound. Negative ultrasound the kidneys. 5 mm left renal cyst. Urine analysis since none was done since admission. still pending Monitor renal parameters. Chest x-ray. Monitor Vanco levels. trial Folic-B12- Venofer Per orders. Subjective ROS Limited/Unobtainable: No Constitutional: Reports: malaise Objective Objective Last 24 Hour Vital Signs Date Time Temp Pulse Resp B/P (MAP) Pulse Ox O2 Delivery O2 Flow Rate FiO2 08/03/19 12:00 98.1 75 18 128/52 (77) 95 08/03/19 09:00 Room Air 08/03/19 08:45 136/60 08/03/19 08:45 84 136/60 08/03/19 08:00 98.6 84 18 136/60 (85) 98 08/03/19 04:23 98.3 82 18 134/54 (80) 92 08/03/19 00:19 98.2 83 18 129/51 (77) 95 08/02/19 21:00 Room Air 08/02/19 20:00 98.2 80 16 108/48 (68) 95 08/02/19 17:43 72 129/76 08/02/19 16:00 98.3 72 20 129/76 (93) 95 Intake and Output 08/02/19 08/03/19 19:00 07:00 Intake Total 360 ml Balance 360 ml Intake Oral 360 ml # Bowel Movements 1 Current Medications Medications (Trade) Dose Ordered Sig/Christel Route PRN Reason Start Time Stop Time Status Last Admin Dose Admin Acetaminophen (Tylenol) 1,000 mg Q6H PRN ORAL Mild Pain/Temp > 100.5 07/26/19 22:00 08/25/19 21:59 07/26/19 22:33 Aspirin (Ecotrin) 81 mg DAILY ORAL 07/27/19 09:00 08/26/19 08:59 08/03/19 08:45 Carvedilol (Coreg) 25 mg BID ORAL 07/27/19 09:00 08/26/19 08:59 08/03/19 08:45 Daptomycin 400 mg/ Sodium Chloride 55 ml @ 100 mls/hr Q48H IV 08/01/19 18:00 08/08/19 17:59 08/01/19 18:50 Docusate Sodium (Colace) 100 mg THREE TIMES A DAY ORAL 08/01/19 13:00 08/31/19 12:59 08/02/19 12:46 Folic Acid (Folate) 1 mg DAILY ORAL 08/01/19 10:00 08/31/19 09:59 08/03/19 08:45 Lorazepam (Ativan 2mg/ml 1ml) 2 mg Q4H PRN IV For Anxiety 07/29/19 12:15 08/05/19 12:14 Losartan Potassium (Cozaar) 50 mg DAILY ORAL 07/27/19 09:00 08/26/19 08:59 08/03/19 08:45 Morphine Sulfate (Morphine Sulfate) 2 mg Q4H PRN IVP For severe Pain 07/29/19 15:15 08/05/19 15:14 07/31/19 04:13 Ondansetron HCl (Zofran) 4 mg Q4H PRN IVP Nausea & Vomiting 07/29/19 15:15 08/28/19 15:14 07/31/19 04:13 Pantoprazole (Protonix) 40 mg EVERY 12 HOURS ORAL 08/01/19 21:00 08/31/19 20:59 08/03/19 08:46 Rivaroxaban (Xarelto) 15 mg BID ORAL 07/27/19 18:00 08/17/19 09:01 08/03/19 08:46 Rivaroxaban (Xarelto) 20 mg DAILY ORAL 08/18/19 09:00 09/17/19 08:59 Laboratory Tests 08/02/19 17:45: Urine Color Yellow, Urine Appearance Cloudy, Urine pH 5, Urine Specific [place] 1.015, Urine Protein 2+H, Urine Glucose (UA) Negative, Urine Ketones 1+H, Urine Blood 5+H, Urine Nitrite Negative, Urine Bilirubin Negative, Urine Urobilinogen Normal, Urine Leukocyte Esterase 3+H, Urine RBC 30-40H, Urine WBC 2-4, Urine Squamous Epithelial Cells ManyH, Urine Bacteria ModerateH 08/03/19 05:34: White Blood Count 11.8H, Red Blood Count 3.37L, Hemoglobin 9.6L, Hematocrit 28.8L, Mean Corpuscular Volume 86, Mean Corpuscular Hemoglobin 28.5, Mean Corpuscular Hemoglobin Concent 33.3, Red Cell Distribution Width 12.6, Platelet Count 288, Mean Platelet Volume 5.7L, Neutrophils (%) (Auto) 71.4, Lymphocytes ( %) (Auto) 18.0L, Monocytes (%) (Auto) 4.7, Eosinophils (%) (Auto) 5.0H, Basophils (%) (Auto) 0.9, Sodium Level 146H, Potassium Level 3.6, Chloride Level 107, Carbon Dioxide Level 30, Anion Gap 9, Blood Urea Nitrogen 23H, Creatinine 1.4H, Estimat Glomerular Filtration Rate 43.5, Glucose Level 100, Uric Acid 10.5H, Calcium Level 9.4, Phosphorus Level 3.3, Magnesium Level 2.1, Total Bilirubin 0.5, Aspartate Amino Transf (AST/SGOT) 13L, Alanine Aminotransferase (ALT/SGPT) 11L, Alkaline Phosphatase 56, C-Reactive Protein, Quantitative 11.3H, Pro-B-Type Natriuretic Peptide 385H, Total Protein 6.5, Albumin 2.6L, Globulin 3.9, Albumin/Globulin Ratio 0.7L Height (Feet): 5 Height (Inches): 2.00 Weight (Pounds): 210 General Appearance: no apparent distress Objective no change Ramiro Burger MD Aug 03, 2019 15:15
[2019-08-03 16:00] VITALS: BP 131/58
--- NOTE | 2019-08-03 17:07 | NUR ---
*-*DISCHARGE PLANNING*-* PATIENT HAS BEEN REFERRED TO: [facility] P: [phone] F: [phone] [facility] P: [phone] F: [phone] [facility] P: [phone] F: [phone] [facility] P: [phone] F: [phone] [facility] P:[phone] F:[phone] [facility] P: [phone] F: [phone] *--*-CLINICALS FAXED*--*-*-*-*
--- NOTE | 2019-08-03 17:10 | NUR ---
CASE MANAGEMENT:REVIEW SI;ACUTE LLE DVT. BLE CELLULITIS. 98.6 84 18 136/60 95% ON RA WBC 11.8 H/H 9.6/28.8 NA 146 BUN 23 CR 1.4 UR ACID 10.5 IS;ZARELTO PO QD PROTONIX PO Q12 HRS DAPTOMYCIN IV Q48 HRS ASA PO QD COZAAR PO QD MED SURG STATUS DCP;SNF PLACEMENT FOR PT
[2019-08-03] MEDS: DAPTOmycin 400 MG in NS 55 ML IV SCH (17:39)
--- NOTE | 2019-08-03 19:32 | NUR ---
HAND-OFF: Report given to Chrissie YEPEZ RN.
--- NOTE | 2019-08-03 19:42 | NUR ---
NURSE NOTES: Received patient awake, alert, verbal, resting in bed, comfortable. Kept clean and dry.
[2019-08-03 20:56] VITALS: BP 118/49
[2019-08-04 00:26] VITALS: BP 121/51
[2019-08-04 04:39] VITALS: BP 141/60
[2019-08-04 07:16] LABS: BASOPHILS % (AUTO) 0.9 % (0.0-2.0); EOSINOPHILS % (AUTO) 4.9 % (0.0-3.0); HEMOGLOBIN 9.8 G/DL (12.0-16.0); LYMPHOCYTES % (AUTO) 20.5 % (20.0-45.0); MEAN CORPUSCULAR VOLUME 86 FL (80-99); MONOCYTES % (AUTO) 6.8 % (1.0-10.0); NEUTROPHILS % (AUTO) 66.9 % (45.0-75.0); PLATELET COUNT 280 K/UL (150-450); RED BLOOD COUNT 3.39 M/UL (4.20-5.40); RED CELL DISTRIBUTION WIDTH 12.6 % (11.6-14.8); WHITE BLOOD COUNT 10.6 K/UL (4.8-10.8)
[2019-08-04 07:25] LABS: ANION GAP 6 mmol/L (5-15); BLOOD UREA NITROGEN 16 mg/dL (7-18); CALCIUM 9.3 MG/DL (8.5-10.1); CARBON DIOXIDE 32 MMOL/L (21-32); CHLORIDE 108 MMOL/L (98-107); CREATININE 1.3 MG/DL (0.55-1.30); POTASSIUM 3.8 MMOL/L (3.5-5.1); SODIUM 146 MMOL/L (136-145)
--- NOTE | 2019-08-04 07:25 | NUR ---
HAND-OFF: Report given to Immanuel Dickens RN.
--- NOTE | 2019-08-04 07:30 | NUR ---
NURSE NOTES: Received pt from ISHAN SAMANIEGO, Pt is awake and alert, pt has NC 2LMP, Pt has intact iv access R WRIST 24G SL. pt is eating breakfast by observation. all needs attended, bed is locked and is in the lowest position, call light within easy reach. will continue to monitor. Addendum: 08/04/19 at 0756 by Immanuel Levi RN ERROR Pt is on RA, no SOB or acute respiratory distress noted.
[2019-08-04 08:00] VITALS: BP 141/58
--- NOTE | 2019-08-04 09:25 | NUR ---
DISCHARGE PLANNING PATIENT HAS BEEN ACCEPTED TO [facility] P: [phone] F: [phone] ROOM ASSIGNMENT 231-1 SKILLED TRANSPORTATION TO BE SCHEDULED PENDING OFFICIAL DISCHARGE ORDER FROM MD Addendum: 08/04/19 at 0944 by OLIVERIO MARTINEZ LVN LVN BLS TRANSPORTATION SCHEDULE WITH [facility] EXT 3269 WITH ETA @ 1130 AM PER RUTH. CHARGE NURSE SANDRA HARMON
[2019-08-04] MEDS: Xarelto 15mg tab ORAL SCH (09:28)
[2019-08-04] MEDS: Aspirin EC 81mg tab ORAL SCH (09:28)
[2019-08-04] MEDS: Docusate 100mg cap ORAL SCH ×2 (09:28→13:00)
[2019-08-04] MEDS: Losartan 50mg tab ORAL SCH (09:28)
[2019-08-04] MEDS: Carvedilol 25mg Tab ORAL SCH (09:29)
[2019-08-04] MEDS ORDERED: DOCUSATE SODIU100 MG ORAL (10:21)
[2019-08-04] MEDS ORDERED: FOLIC ACID1 MG ORAL (10:22)
[2019-08-04] MEDS ORDERED: PANTOPRAZOLE SO40 MG ORAL (10:23)
[2019-08-04] MEDS ORDERED: XARELTO10 MG ORAL ×2 (10:28→10:32)
--- NOTE | 2019-08-04 10:38 | NUR ---
DISCHARGE PLANNED PATIENT IS BEING ACCEPTED AND DISCHARGED TO: [facility] P: [phone] F: [phone] # [id number] SKILLED [facility] [id number] S/W RUTH DIAL 11:30AM/ 1130AM
[2019-08-04] MEDS ORDERED: DAPTOMYCIN350 MG IV (10:56)
--- NOTE | 2019-08-04 11:25 | Nephrology Progress Note ---
Assessment/Plan Problem List: (1) Acute on chronic diastolic congestive heart failure Assessment: Cr lower today (2) Morbid obesity (3) Peripheral edema (4) Elephantiasis Assessment Acute renal failure as serum creatinine anju from 1 from the date of admission TO 1.9 today. Etiology is most likely overdiuresis and and partly treatment with vancomycin. Anemia. Other conditions: 1. Cellulitis of bilateral lower extremities. 2. Lymphedema bilateral lower extremities. 3. Bilateral leg pain. 4. Hypertension. 5. Acute deep venous thrombosis left common femoral to superficial femoral vein Plan Serum creatinine improving. It is now 1.3 down from 1.9 Hold Lasix. Kidney ultrasound. Negative ultrasound the kidneys. 5 mm left renal cyst. Urine analysis since none was done since admission. still pending Monitor renal parameters. Chest x-ray. Monitor Vanco levels. trial Folic-B12- Venofer Per orders. Subjective ROS Limited/Unobtainable: No Constitutional: Reports: malaise Objective Objective Last 24 Hour Vital Signs Date Time Temp Pulse Resp B/P (MAP) Pulse Ox O2 Delivery O2 Flow Rate FiO2 08/04/19 09:29 77 141/58 08/04/19 09:28 141/58 08/04/19 09:00 Room Air 08/04/19 08:00 98.0 77 18 141/58 (85) 94 08/04/19 04:39 97.8 76 18 141/60 (87) 98 08/04/19 00:26 97.9 78 18 121/51 (74) 92 08/03/19 20:56 98.2 78 18 118/49 (72) 98 08/03/19 20:21 Room Air 08/03/19 17:16 82 131/58 08/03/19 16:00 98.3 82 18 131/58 (82) 97 08/03/19 12:00 98.1 75 18 128/52 (77) 95 Intake and Output 08/03/19 08/04/19 19:00 07:00 Intake Total 1000 ml 360 ml Output Total 1300 ml Balance 1000 ml -940 ml Intake Oral 1000 ml Other 360 ml Output Urine Total 1300 ml Current Medications Medications (Trade) Dose Ordered Sig/Christel Route PRN Reason Start Time Stop Time Status Last Admin Dose Admin Acetaminophen (Tylenol) 1,000 mg Q6H PRN ORAL Mild Pain/Temp > 100.5 07/26/19 22:00 08/25/19 21:59 07/26/19 22:33 Aspirin (Ecotrin) 81 mg DAILY ORAL 07/27/19 09:00 08/26/19 08:59 08/04/19 09:28 Carvedilol (Coreg) 25 mg BID ORAL 07/27/19 09:00 08/26/19 08:59 08/04/19 09:29 Daptomycin 400 mg/ Sodium Chloride 55 ml @ 100 mls/hr Q48H IV 08/01/19 18:00 08/08/19 17:59 08/03/19 17:39 Docusate Sodium (Colace) 100 mg THREE TIMES A DAY ORAL 08/01/19 13:00 08/31/19 12:59 08/04/19 09:28 Folic Acid (Folate) 1 mg DAILY ORAL 08/01/19 10:00 08/31/19 09:59 08/04/19 09:28 Lorazepam (Ativan 2mg/ml 1ml) 2 mg Q4H PRN IV For Anxiety 07/29/19 12:15 08/05/19 12:14 Losartan Potassium (Cozaar) 50 mg DAILY ORAL 07/27/19 09:00 08/26/19 08:59 08/04/19 09:28 Morphine Sulfate (Morphine Sulfate) 2 mg Q4H PRN IVP For severe Pain 07/29/19 15:15 08/05/19 15:14 07/31/19 04:13 Ondansetron HCl (Zofran) 4 mg Q4H PRN IVP Nausea & Vomiting 07/29/19 15:15 08/28/19 15:14 07/31/19 04:13 Pantoprazole (Protonix) 40 mg EVERY 12 HOURS ORAL 08/01/19 21:00 08/31/19 20:59 08/04/19 09:28 Rivaroxaban (Xarelto) 15 mg BID ORAL 07/27/19 18:00 08/17/19 09:01 08/04/19 09:28 Rivaroxaban (Xarelto) 20 mg DAILY ORAL 08/18/19 09:00 09/17/19 08:59 Laboratory Tests 08/04/19 05:50: White Blood Count 10.6, Red Blood Count 3.39L, Hemoglobin 9.8L, Hematocrit 29.0L , Mean Corpuscular Volume 86, Mean Corpuscular Hemoglobin 28.9, Mean Corpuscular Hemoglobin Concent 33.8, Red Cell Distribution Width 12.6, Platelet Count 280, Mean Platelet Volume 5.7L, Neutrophils (%) (Auto) 66.9, Lymphocytes ( %) (Auto) 20.5, Monocytes (%) (Auto) 6.8, Eosinophils (%) (Auto) 4.9H, Basophils (%) (Auto) 0.9, Sodium Level 146H, Potassium Level 3.8, Chloride Level 108H, Carbon Dioxide Level 32, Anion Gap 6, Blood Urea Nitrogen 16, Creatinine 1.3, Estimat Glomerular Filtration Rate 47.4, Glucose Level 102, Calcium Level 9.3 Height (Feet): 5 Height (Inches): 2.00 Weight (Pounds): 210 General Appearance: no apparent distress Objective no change Ramiro Burger MD Aug 04, 2019 11:25
[2019-08-04 12:00] VITALS: BP 121/61
--- NOTE | 2019-08-04 13:06 | Internal Med Progress Note ---
Subjective Physician Name Mark Jones Attending Physician Mark Jones MD Current Medications Medications (Trade) Dose Ordered Sig/Christel Route PRN Reason Start Time Stop Time Status Last Admin Dose Admin Acetaminophen (Tylenol) 1,000 mg Q6H PRN ORAL Mild Pain/Temp > 100.5 07/26/19 22:00 08/25/19 21:59 07/26/19 22:33 Aspirin (Ecotrin) 81 mg DAILY ORAL 07/27/19 09:00 08/26/19 08:59 08/04/19 09:28 Carvedilol (Coreg) 25 mg BID ORAL 07/27/19 09:00 08/26/19 08:59 08/04/19 09:29 Daptomycin 400 mg/ Sodium Chloride 55 ml @ 100 mls/hr Q48H IV 08/01/19 18:00 08/08/19 17:59 08/03/19 17:39 Docusate Sodium (Colace) 100 mg THREE TIMES A DAY ORAL 08/01/19 13:00 08/31/19 12:59 08/04/19 09:28 Folic Acid (Folate) 1 mg DAILY ORAL 08/01/19 10:00 08/31/19 09:59 08/04/19 09:28 Lorazepam (Ativan 2mg/ml 1ml) 2 mg Q4H PRN IV For Anxiety 07/29/19 12:15 08/05/19 12:14 Losartan Potassium (Cozaar) 50 mg DAILY ORAL 07/27/19 09:00 08/26/19 08:59 08/04/19 09:28 Morphine Sulfate (Morphine Sulfate) 2 mg Q4H PRN IVP For severe Pain 07/29/19 15:15 08/05/19 15:14 07/31/19 04:13 Ondansetron HCl (Zofran) 4 mg Q4H PRN IVP Nausea & Vomiting 07/29/19 15:15 08/28/19 15:14 07/31/19 04:13 Pantoprazole (Protonix) 40 mg EVERY 12 HOURS ORAL 08/01/19 21:00 08/31/19 20:59 08/04/19 09:28 Rivaroxaban (Xarelto) 15 mg BID ORAL 07/27/19 18:00 08/17/19 09:01 08/04/19 09:28 Rivaroxaban (Xarelto) 20 mg DAILY ORAL 08/18/19 09:00 09/17/19 08:59 Allergies: Coded Allergies: No Known Allergies (Unverified , 02/03/19) Subjective Awake, alert, responsive, denies any chest pain or shortness of breath, WBC; 10.6. Objective Last Vital Signs Date Time Temp Pulse Resp B/P (MAP) Pulse Ox O2 Delivery O2 Flow Rate FiO2 08/04/19 09:29 77 141/58 08/04/19 09:00 Room Air 08/04/19 08:00 98.0 18 94 Laboratory Tests Test 08/04/19 05:50 White Blood Count 10.6 K/UL (4.8-10.8) Red Blood Count 3.39 M/UL (4.20-5.40) L Hemoglobin 9.8 G/DL (12.0-16.0) L Hematocrit 29.0 % (37.0-47.0) L Mean Corpuscular Volume 86 FL (80-99) Mean Corpuscular Hemoglobin 28.9 PG (27.0-31.0) Mean Corpuscular Hemoglobin Concent 33.8 G/DL (32.0-36.0) Red Cell Distribution Width 12.6 % (11.6-14.8) Platelet Count 280 K/UL (150-450) Mean Platelet Volume 5.7 FL (6.5-10.1) L Neutrophils (%) (Auto) 66.9 % (45.0-75.0) Lymphocytes (%) (Auto) 20.5 % (20.0-45.0) Monocytes (%) (Auto) 6.8 % (1.0-10.0) Eosinophils (%) (Auto) 4.9 % (0.0-3.0) H Basophils (%) (Auto) 0.9 % (0.0-2.0) Sodium Level 146 MMOL/L (136-145) H Potassium Level 3.8 MMOL/L (3.5-5.1) Chloride Level 108 MMOL/L (98-107) H Carbon Dioxide Level 32 MMOL/L (21-32) Anion Gap 6 mmol/L (5-15) Blood Urea Nitrogen 16 mg/dL (7-18) Creatinine 1.3 MG/DL (0.55-1.30) Estimat Glomerular Filtration Rate 47.4 mL/min (>60) Glucose Level 102 MG/DL (74-106) Calcium Level 9.3 MG/DL (8.5-10.1) Microbiology Date/Time Source Procedure Growth Status 08/02/19 17:45 Urine,Clean Catch Urine Culture - Preliminary Resulted Intake and Output 08/03/19 08/04/19 19:00 07:00 Intake Total 1000 ml 360 ml Output Total 1300 ml Balance 1000 ml -940 ml Intake Oral 1000 ml Other 360 ml Output Urine Total 1300 ml Objective General: No acute distress, awake and alert HEENT: NCAT, sclera anicteric, PERRL, EOMI. Neck: Supple, no significant jugular venous distention, Lungs: Good inspiratory effort, clear to auscultation bilaterally, no Wheeze or Rales. Heart: Regular rate and rhythm, normal S1/S2, no murmur. Abdomen: soft, nontender, nondistended. Normoactive bowel sounds, Obesity. / Rectal: Refused and deferred. Extremities: No Cyanosis or clubbing, bilateral lower extremity hyperpigmentation and decreased edema, decreased lower extremity erythema. Neuro: A&O x 3, Able to move all extremities Skin: warm, no rash. Psych: Normal mood and affect Assessment/Plan Assessment/Plan ASSESSMENT: This is an 84-year-old female: 1. Cellulitis of bilateral lower extremities. 2. Lymphedema bilateral lower extremities. 3. Bilateral leg pain. 4. Hypertension. 5. Acute deep venous thrombosis left common femoral to superficial femoral vein 6. Acute on chronic congestive heart failure. TREATMENT: 1. Cellulitis of the bilateral lower extremities. ABX= daptomycin. Infectious Disease consultation has been obtained with Dr. Joel. We will follow recommendations of Infectious Disease. 2. Hypertension. Continue Cozaar and Coreg as above. 3. On Xarelto 4. Charge patient to nursing facility today. Mark Jones MD Aug 04, 2019 13:06
--- NOTE | 2019-08-04 13:29 | NUR ---
NURSE NOTES: pt has discharge order, all D/C assessments and instructions done and pt verbally confirmed to understand all. pt is stable, V/S stable, all belongings checked with RN and are with pt. Report given to SNF [facility] STANTON RN knows pt has iv ATB for 08/05/2019 and 08/07/2019 and xarelto 15mg bid till 08/16 and 20mg QD from 08/18/2019. pt's niece KIMO is aware about discharging and at first she refused to send pt to SNF till she call back me and she did and stated go ahead and D/C pt. CM is aware. iv access D/C. RN took pictures from leg and L HEEL but camera and no camera available, and RN couldn't take more pictures and upload them, hospice patient care secretary JULIA is aware. wound care done as order. iv access D/C. pt left hospital with accompany of ambulance personnel.
--- NOTE | 2019-08-04 13:45 | Pulmonology Progress Note ---
Assessment/Plan Problems: (1) ATN (acute tubular necrosis) (2) Cellulitis (3) Severe anemia (4) Peripheral edema (5) Elephantiasis (6) Mild pulmonary hypertension (7) Morbid obesity (8) History of hypertension (9) Acute DVT (deep venous thrombosis) Assessment/Plan wbc slightly lower check cultures, still pending doing better all reviewed on Xarelto for DVT wound care, iv abx podiatry monitor BP f/u stool for OB was negative. symptomatic treatment. Subjective ROS Limited/Unobtainable: No Constitutional: Reports: no symptoms HEENT: Repors: no symptoms Allergies: Coded Allergies: No Known Allergies (Unverified , 02/03/19) Objective Last 24 Hour Vital Signs Date Time Temp Pulse Resp B/P (MAP) Pulse Ox O2 Delivery O2 Flow Rate FiO2 08/04/19 12:00 98.1 76 19 121/61 (81) 95 08/04/19 09:29 77 141/58 08/04/19 09:28 141/58 08/04/19 09:00 Room Air 08/04/19 08:00 98.0 77 18 141/58 (85) 94 08/04/19 04:39 97.8 76 18 141/60 (87) 98 08/04/19 00:26 97.9 78 18 121/51 (74) 92 08/03/19 20:56 98.2 78 18 118/49 (72) 98 08/03/19 20:21 Room Air 08/03/19 17:16 82 131/58 08/03/19 16:00 98.3 82 18 131/58 (82) 97 Intake and Output 08/03/19 08/04/19 19:00 07:00 Intake Total 1000 ml 360 ml Output Total 1300 ml Balance 1000 ml -940 ml Intake Oral 1000 ml Other 360 ml Output Urine Total 1300 ml General Appearance: WD/WN, no acute distress HEENT: normocephalic, anicteric Respiratory/Chest: chest wall non-tender, lungs clear Breasts: no masses Cardiovascular: normal peripheral pulses Abdomen: normal bowel sounds, no organomegaly Genitourinary: normal external genitalia Skin: no rash, no lesions Microbiology Date/Time Source Procedure Growth Status 08/02/19 17:45 Urine,Clean Catch Urine Culture - Preliminary Resulted Laboratory Tests 08/04/19 05:50: White Blood Count 10.6, Red Blood Count 3.39L, Hemoglobin 9.8L, Hematocrit 29.0L , Mean Corpuscular Volume 86, Mean Corpuscular Hemoglobin 28.9, Mean Corpuscular Hemoglobin Concent 33.8, Red Cell Distribution Width 12.6, Platelet Count 280, Mean Platelet Volume 5.7L, Neutrophils (%) (Auto) 66.9, Lymphocytes ( %) (Auto) 20.5, Monocytes (%) (Auto) 6.8, Eosinophils (%) (Auto) 4.9H, Basophils (%) (Auto) 0.9, Sodium Level 146H, Potassium Level 3.8, Chloride Level 108H, Carbon Dioxide Level 32, Anion Gap 6, Blood Urea Nitrogen 16, Creatinine 1.3, Estimat Glomerular Filtration Rate 47.4, Glucose Level 102, Calcium Level 9.3 Mone Newton MD Aug 04, 2019 13:45
--- NOTE | 2019-08-06 12:26 | Discharge Summary ---
Discharge Summary Discharge Summary _ DATE OF ADMISSION: 07/26/2019 DATE OF DISCHARGE: 08/04/2019 DISCHARGED BY: Dr. Jones REASON FOR ADMISSION: 84 years old female with past medical history of hypertension, was admitted prior to [facility] in January 2019 for bilateral leg swelling. At that time patient was diagnosed with chronic lymphedema of bilateral lower extremity. Patient presented this time with a chief complaint of bilateral leg pain and swelling. Patient initially presented to [facility] by paramedics, but then transferred to [facility] for insurance purposes. CONSULTANTS: pulmonary Dr. Newton ID specialist Dr. Joel cycle consultant Dr. Burger belting cutter Dr. Taylor [facility] COURSE: Patient admitted to medical surgical floor. Patient started on antibiotic as per ID specialist recommendation for cellulitis left lower extremity. . Blood cultures were negative. Urine culture revealed Shobha. Venous duplex bilateral reveal acute DVT left common femoral vein and superficial femoral vein . Patient started on Xarelto. Hemoglobin and hematocrit were closely monitored with goal to keep hemoglobin above 7. Stool for occult blood was negative. CEA was within normal limits. Patient initially was on the IV Lasix with close monitoring of volumes and renal parameters as well as the monitoring for edema. Blood pressure was managed with beta-casie and ARB. No need for any surgical intervention at this time as per belting cutter. [employer] Flight Engineer recommended to offload. Supportive care provided. Pain management was addressed as needed. Bowel regimen instituted. Patient clinically stabilized and was ready for transfer back to senior living facility for continuation of care FINAL DIAGNOSES: Left lower extremity cellulitis Acute DVT left CFV and SFV Lymphedema Morbid obesity Hypertension Mild pulmonary hypertension DISCHARGE MEDICATIONS: See Medication Reconciliation list. DISCHARGE INSTRUCTIONS: Patient was discharged to the senior living facility. Follow up with medical doctor at the facility. Tatyana Lucas NP Aug 06, 2019 12:26
[2019-08-18] MEDS ORDERED: Xarelto 10mg tab ORAL SCH (09:00)
== END 2019-08-04 13:41 | DRG 299 ==
LOC: 4E 19:16
DX: I82.412 Acute embolism and thrombosis of left femoral vein (principal); N17.0 Acute kidney failure with tubular necrosis; I50.33 Acute on chronic diastolic (congestive) heart failure; L03.116 Cellulitis of left lower limb; Z68.41 Body mass index [BMI] 40.0-44.9, adult; L03.115 Cellulitis of right lower limb; I89.0 Lymphedema, not elsewhere classified; E66.01 Morbid (severe) obesity due to excess calories; I11.0 Hypertensive heart disease with heart failure; Z79.82 Long term (current) use of aspirin; D64.9 Anemia, unspecified; I27.20 Pulmonary hypertension, unspecified
CPT/HCPCS: 36415; 71045; 76770; 80048; 80053; 80061; 80076; 80202; 81001; 82270; 82378; 82607; 82728; 82746; 83036; 83540; 83550; 83615; 83735; 83880; 84100; 84550; 85007; 85025; 85044; 85060; 85610; 85651; 85730; 86140; 87040; 87086; 93970; J2405